=== PATIENT | female | born 1985 | race Caucasian/White ===

== ENCOUNTER 2023-09-25 13:29 | Emergency (ER) | payer BC, SELFPAY ==
[2023-09-25] VITALS (7 sets, daily range): BP systolic 112–130; BP diastolic 78–91; BMI 22.0
[2023-09-25 15:29] LABS: % Basophils 0.3 % (0-2); % Eosinophils 2.9 % (0-6); % Immature Granulocytes 0.2 % (0-0.5); % Lymphocytes 12.1 % (20.5-51.1); % Monocytes 8.4 % (1.7-9.3); % Neutrophils 76.1 % (42.2-75.2); Absolute Eosinophils 0.3 10^3/uL (0-0.7); Absolute Lymphocytes 1.1 10^3/uL (1.2-3.4); Absolute Monocytes 0.8 10^3/uL (0.1-0.6); Absolute Neutrophils 6.8 10^3/uL (1.4-6.5); Hematocrit 29.4 % (37.0-47.0); Hemoglobin 9.3 g/dL (12.0-16.0); Mean Corp Hgb Conc. 31.6 g/dL (33.0-37.0); Mean Corpuscular Hgb 26.8 pg (27.0-31.0); Mean Corpuscular Volume 84.7 fL (81.0-99.0); Mean Platelet Volume 9.7 fL (7.4-10.4); Nucleated Red Blood Cells % 0 %; Platelet Count 337 10^3/uL (130-400); Red Blood Cell Count 3.47 10^6/uL (4.20-5.40); Red Cell Dist. Width 13.5 % (11.5-14.5)
[2023-09-25 15:38] LABS: HCG, Serum Qualitative Screen Negative
[2023-09-25 15:40] LABS: D-Dimer 3.83 ug/mlFEU (0.00-0.50)
[2023-09-25 15:43] LABS: ALT (SGPT) 38 U/L (0-35); AST (SGOT) 34 U/L (14-36); Albumin 3.2 g/dl (3.5-5.0); Blood Urea Nitrogen 12 mg/dl (7-17); Calcium 8.9 mg/dl (8.4-10.2); Carbon Dioxide 26 mmol/L (22-30); Chloride 103 mmol/L (98-107); Estimated Creatinine Clearance 113 ml/min; Glucose 96 mg/dl (70-99); Potassium 4.1 mmol/L (3.5-5.1); Sodium 137 mmol/L (135-145); Total Bilirubin 0.3 mg/dl (0.2-1.3); Total Protein 6.2 g/dl (6.3-8.2); eGFR > 60.00
[2023-09-25 15:52] LABS: Troponin I < 0.012 ng/ml
[2023-09-25 15:57] LABS: Urine Albumin Negative (Neg - Trace); Urine Bilirubin Negative (Negative); Urine Character Clear (Clear); Urine Color Straw; Urine Glucose Negative (Negative); Urine Ketone Negative (Negative); Urine Leukocyte Negative (Negative); Urine Nitrite Negative (Negative); Urine Occult Blood Negative (Negative); Urine Specific Gravity 1.005 (<1.030); Urine Urobilinogen Negative (Neg - 1+)
[2023-09-25 16:01] LABS: Alkaline Phosphatase 168 U/L (38-126)
[2023-09-25 16:06] LABS: Erythrocyte Sed Rate 73 mm/hour (0-20)
--- NOTE | 2023-09-25 18:51 | ED.GENMED ---
History of Present Illness
<Caren Michel NP - Last Filed: 09/25/23 19:25>
General
Chief Complaint: Fever
Source: patient
Exam Limitations: none
Time Seen by Provider: 09/25/23 14:42
Nursing documentation reviewed up to this point in time: agreed with
Travel History
Have you had any contact with someone who has COVID-19?: No
Do you have any symptoms of coronavirus? Fever > 100 degrees, chills, cough, shortness of breath, sore throat, loss of taste or smell, muscle aches, or headache?: No
History of Present Illness
History of Present Illness:
Patient to ED with complaint of low grade fevers, chest pain, cough. Symptoms started approx 5 weeks ago but she states the past 2 weeks her symptoms have escalated. States she was seen by her PCP, had outpatient labs that were all normal.
Brought self to ED today because of her continued symptoms. Reports she had COVID in April. Given rx for Naproxen, flexeril, albuterol inhaler without improvement.
Past History
<Caren Michel NP - Last Filed: 09/25/23 19:25>
Past History
ED Past Medical History: Other (migraines )
ED Past Surgical History: and Gynecological
Social History
Tobacco: Non-smoker
Alcohol: Occasional
Drug: None
Living: with family
Review of Systems
<Caren Michel NP - Last Filed: 09/25/23 19:25>
Review of Systems
Allergies reviewed?: Yes
All Other Systems: ROS reviewed and negative except as documented in HPI and ROS
Constitutional: Reports fatigue
EENT: Reports no symptoms
Respiratory: Reports cough
Cardiac: Reports chest pain
ABD/GI: Reports no symptoms
: Reports no symptoms
Musculoskeletal: Reports no symptoms
Skin: Reports no symptoms
Neurological: Reports no symptoms
Endocrine: Reports no symptoms
Psychiatric: Reports no symptoms
Phy Exam
<Caren Michel PRODUCTION ARTIST - Last Filed: 09/25/23 19:25>
General Physical Exam
General Presentation: well appearing and no apparent distress
General age: appears stated age
General Skin: warm and dry
General Habitus: normal
General Mental: alert
General Hydration: appears well hydrated
Cardiovascular Exam
Cardiovascular Exam: regular rate/rhythm and no edema
Pulmonary Exam
Pulmonary Exam: lungs clear, no respiratory distress and chest non tender
Gastrointestinal Exam
Gastrointestinal Exam: normal bowel sounds, non tender, soft and no organomegaly
Musculoskeletal Exam
Musculoskeletal Exam: full ROM and neuro vasc intact
Skin Exam
Skin Exam: normal color, warm/dry and no rash
Psychiatric Exam
Psychiatric Exam: normal mood/affect
Course
<Caren Michel PRODUCTION ARTIST - Last Filed: 09/25/23 19:25>
Orders/Labs/Results
Orders:
Orders
09/25/23 13:37
EKG [Electrocardiogram (*1)] Urgent
Reason for Study: Chest Pain
09/25/23 13:38
EKG- Treatment ONCE
09/25/23 14:52
Test Result ONCE
09/25/23 14:54
CR Chest - 2 Views Urgent
Comment:
Reason For Exam: pain, cough
09/25/23 15:04
C-Reactive Protein Urgent
Comment: ADD ON
Complete Blood Count/With Diff Urgent
Comprehensive Metabolic Panel Urgent
D-Dimer Urgent
Erythrocyte Sed Rate Urgent
Comment: ADD ON
HCG, Serum Qualitative Screen Urgent
Troponin I Urgent
Blood Culture Q30M
ROLDAN Source: Blood/Venous
Specimen Description:
Blood Culture Q30M
ROLDAN Source: Blood/Venous
Specimen Description:
09/25/23 15:41
Add On- LAB Urgent
Tests Added?: Sed rate, CRP
09/25/23 15:45
Urinalysis Reflex To Culture Urgent
Date Specimen was Collected: 09/25/23
Time Specimen was Collected: 15:36
09/25/23 15:46
CT Chest Pe Study Urgent
Comment:
Reason For Exam: CP, elevated Ddimer
Abnormal Lab Results
09/25/23
15:04
RBC 3.47 L 10^6/uL
(4.20-5.40)
Hgb 9.3 L g/dL
(12.0-16.0)
Hct 29.4 L %
(37.0-47.0)
MCH 26.8 L pg
(27.0-31.0)
MCHC 31.6 L g/dL
(33.0-37.0)
Absolute Neuts (auto) 6.8 H 10^3/uL
(1.4-6.5)
Absolute Lymphs (auto) 1.1 L 10^3/uL
(1.2-3.4)
Absolute Monos (auto) 0.8 H 10^3/uL
(0.1-0.6)
Neutrophils % 76.1 H %
(42.2-75.2)
Lymphocytes % 12.1 L %
(20.5-51.1)
ESR 73 H mm/hour
(0-20)
D-Dimer 3.83 H ug/mlFEU
(0.00-0.50)
ALT 38 H U/L
(0-35)
Alkaline Phosphatase 168 H U/L
(38-126)
C-Reactive Protein 65.30 H mg/L
(0.0-10.00)
Total Protein 6.2 L g/dl
(6.3-8.2)
Albumin 3.2 L g/dl
(3.5-5.0)
09/25/23 15:04
09/25/23 15:04
Vital Signs
Initial and Last Documented VS:
Initial Vital Signs
Temp Pulse Resp BP Pulse Ox
98.1 F 109 18 126/87 98
09/25/23 13:35 09/25/23 13:35 09/25/23 13:35 09/25/23 13:35 09/25/23 13:35
Last Documented Vital Signs
Temp Pulse Resp BP Pulse Ox
99.7 F 91 18 112/82 98
09/25/23 13:38 09/25/23 17:34 09/25/23 17:34 09/25/23 17:34 09/25/23 17:34
<Arden Ramirez, DO - Last Filed: 09/25/23 19:06>
Orders/Labs/Results
Orders:
Orders
09/25/23 13:37
EKG [Electrocardiogram (*1)] Urgent
Reason for Study: Chest Pain
09/25/23 13:38
EKG- Treatment ONCE
09/25/23 14:52
Test Result ONCE
09/25/23 14:54
CR Chest - 2 Views Urgent
Comment:
Reason For Exam: pain, cough
09/25/23 15:04
C-Reactive Protein Urgent
Comment: ADD ON
Complete Blood Count/With Diff Urgent
Comprehensive Metabolic Panel Urgent
D-Dimer Urgent
Erythrocyte Sed Rate Urgent
Comment: ADD ON
HCG, Serum Qualitative Screen Urgent
Troponin I Urgent
Blood Culture Q30M
ROLDAN Source: Blood/Venous
Specimen Description:
Blood Culture Q30M
ROLDAN Source: Blood/Venous
Specimen Description:
09/25/23 15:41
Add On- LAB Urgent
Tests Added?: Sed rate, CRP
09/25/23 15:45
Urinalysis Reflex To Culture Urgent
Date Specimen was Collected: 09/25/23
Time Specimen was Collected: 15:36
09/25/23 15:46
CT Chest Pe Study Urgent
Comment:
Reason For Exam: CP, elevated Ddimer
Abnormal Lab Results
09/25/23
15:04
RBC 3.47 L 10^6/uL
(4.20-5.40)
Hgb 9.3 L g/dL
(12.0-16.0)
Hct 29.4 L %
(37.0-47.0)
MCH 26.8 L pg
(27.0-31.0)
MCHC 31.6 L g/dL
(33.0-37.0)
Absolute Neuts (auto) 6.8 H 10^3/uL
(1.4-6.5)
Absolute Lymphs (auto) 1.1 L 10^3/uL
(1.2-3.4)
Absolute Monos (auto) 0.8 H 10^3/uL
(0.1-0.6)
Neutrophils % 76.1 H %
(42.2-75.2)
Lymphocytes % 12.1 L %
(20.5-51.1)
ESR 73 H mm/hour
(0-20)
D-Dimer 3.83 H ug/mlFEU
(0.00-0.50)
ALT 38 H U/L
(0-35)
Alkaline Phosphatase 168 H U/L
(38-126)
C-Reactive Protein 65.30 H mg/L
(0.0-10.00)
Total Protein 6.2 L g/dl
(6.3-8.2)
Albumin 3.2 L g/dl
(3.5-5.0)
09/25/23 15:04
09/25/23 15:04
Vital Signs
Initial and Last Documented VS:
Initial Vital Signs
Temp Pulse Resp BP Pulse Ox
98.1 F 109 18 126/87 98
09/25/23 13:35 09/25/23 13:35 09/25/23 13:35 09/25/23 13:35 09/25/23 13:35
Last Documented Vital Signs
Temp Pulse Resp BP Pulse Ox
99.7 F 91 18 112/82 98
09/25/23 13:38 09/25/23 17:34 09/25/23 17:34 09/25/23 17:34 09/25/23 17:34
<Caren Michel NP - Last Filed: 09/25/23 19:25>
*Radiology
Radiology exam reviewed: radiology read reviewed
*Pulse Oximetry
Patient hypoxic: no
<Caren Michel NP - Last Filed: 09/25/23 19:25>
Update Note
Update Note:
CT report: Large soft tissue massin anterior mediastinum, large pericardial effusion, small bilateral pleural effusion. Discussed case with Dr. Shea (CT surgery). Recommends transfer to [place]. Discussed CT findings and recommendations of Dr. Shea
with patient and she is agreeable to transfer.
Case discussed with Ct Dr Scott at [facility] who will accept transfer. Patient to be transferred to CT-ICU at [place]. She is agreeable to transfer.
ED Attending Note
<Caren Michel PRODUCTION ARTIST - Last Filed: 09/25/23 19:25>
-
Portions of this chart may have been created with voice recognition software.� Occasional wrong word or��sound alike� substitutions may have occurred due to the inherent limitations of voice recognition software.
<Arden Ramirez, DO - Last Filed: 09/25/23 19:06>
ED Attending Note
Patient seen and examined by attending physician: Yes
ED Attending Note:
I have reviewed and agree with patient treatment plan by Caren Michel. My exam revealed 38-year-old female no acute distress. Patient with anterior mediastinal mass, concerning for thymoma versus teratoma. Patient also with pericardial
effusion. Discussed with cardiothoracic surgery, who recommends transfer to [place].
Discharge Plan
Departure
Patient Disposition: Acute Care Hospital
Date of Disposition: 09/25/23
Time of Disposition: 19:23
Discharge Problem:
Mass of mediastinum, Acute pericardial effusion
Prescriptions:
No Action
Vitamin Tablet
1 tab PO DAILY
oxycodone-acetaminophen 5 MG/325 MG tablet
1 tab PO Q4HPRN PRN (Reason: moderate pain) Qty: 10 0RF
ibuprofen 600 MG tablet
600 mg PO Q4HPRN PRN (Reason: cramps) Qty: 90 0RF
Referrals:
Kristyn Serrano CRNP [Family Provider] -
Hospital Transfer
Other hospital: [facility]
I certify that the patient requires transfer: Yes
Discussed case with accepting physician: Dr. Scott
Reason for transfer: higher level of care
Interventions
Interventions:
*Risk Screen - Suicide Last Done: 09/25/23 13:35
*General Assessment Last Done: 09/25/23 14:56
*Neglect/Abuse Screening Last Done: 09/25/23 13:35
*ED COVID-19 Vaccine History Last Done: 09/25/23 13:35
ED- Neurological Assessment Last Done: 09/25/23 17:34
ED-Skin Assessment Last Done: 09/25/23 17:34
Discharge Date and Time
Print Language: INDONESIAN
[2023-09-25] MEDS: TYLENOL 1000 MG PO (19:19)
[2023-09-25] MEDS: NSS 1000 IV (19:28)
--- NOTE | 2023-09-25 22:00 | EDRN ---
Report received introduced myself to patient, updated her on departure time, provided with cup of ice and turned down lights for comfort
--- NOTE | 2023-09-26 | EDRN ---
Patient ambulated to the bathroom before ambulance got here for transport, called [facility] to let them know squad was here and leaving shortly.
== END 2023-09-26 00:41 | disposition short-term general hospital (02) ==
LOC: EMR 13:29
PROVIDERS: Nurse Practitioner; EMERGENCY PHYSICIAN Emergency Medicine; FAMILY PHYSICIAN Nurse Practitioner Family
DX: J90 Pleural effusion, not elsewhere classified (principal); R22.2 Localized swelling, mass and lump, trunk; G43.909 Migraine, unspecified, not intractable, without status migrainosus; Z86.16 Personal history of COVID-19
CPT/HCPCS: 99285; 71046; 71275; 80053; 81003; 84484; 84703; 85025; 85379; 85652; 86140; 87040; 93005; Q9967

== ENCOUNTER 2023-10-11 06:30 | Inpatient (IN) | payer BC, SELFPAY ==
[2023-10-11] VITALS (7 sets, daily range): BP systolic 111–135; BP diastolic 74–89; BMI 22.7
--- NOTE | 2023-10-11 04:12 | ED.GENMED ---
History of Present Illness
General
Chief Complaint: Breathing Problem
Source: patient
Exam Limitations: none
Time Seen by Provider: 10/11/23 04:10
Nursing documentation reviewed up to this point in time: agreed with
History of Present Illness
History of Present Illness:
Pleasant 38-year-old female that presents with shortness of breath. She has been diagnosed with non-Hodgkin's lymphoma, and has been undergoing treatment at [facility]. She has a thymic mass in her chest which was diagnosed here
via CAT scan. Patient states that she woke up tonight with shortness of breath and difficulty breathing. She states that her chest felt tight. She is concerned for pericardial effusion or blood clot. Patient denies fever, chills, nausea or
vomiting.
Past History
Past History
ED Past Medical History: Other (migraines )
ED Past Surgical History: and Gynecological
Social History
Tobacco: Non-smoker
Alcohol: Occasional
Drug: None
Living: with family
Phy Exam
General Physical Exam
General Presentation: well appearing and no apparent distress
General Skin: warm and dry
General Habitus: normal
General Mental: alert
General Hydration: appears well hydrated
ENT Exam
ENT Exam: EOMI, pharynx normal, neck supple and normocephalic
Eye Exam
Eye Exam: PERRL, cornea clear and conjunctiva normal
Cardiovascular Exam
Cardiovascular Exam: regular rate/rhythm, no edema, no murmur, normal peripheral pulses and tachycardia
Pulmonary Exam
Pulmonary Exam: lungs clear, no rales, no crackles, no rhonchi, no stridor, no wheezing and no cough
Gastrointestinal Exam
Gastrointestinal Exam: normal bowel sounds, non tender, soft, no organomegaly, no pulsatile mass and non distended
Neurological Exam
Neurological Exam: alert, oriented x3, no motor deficits and speech normal
Musculoskeletal Exam
Musculoskeletal Exam: full ROM and no edema
Skin Exam
Skin Exam: normal color, warm/dry, no rash and no petechia
Psychiatric Exam
Psychiatric Exam: normal mood/affect
Course
Orders/Labs/Results
Orders:
Orders
10/11/23 04:11
Electrocardiogram (*1) Stat
Reason for Study: Other
Other Reason for Exam: chest pain
Cardiac Monitoring- Treatment ONCE
EKG- Treatment ONCE
10/11/23 04:22
Complete Blood Count/With Diff Urgent
Comprehensive Metabolic Panel Urgent
D-Dimer Urgent
HCG, Serum Qualitative Screen Urgent
Comment: ADDED
Magnesium Urgent
Manual Differential Urgent
NT-proBNP Urgent
PTT Urgent
Prothrombin Time Urgent
TSH Urgent
Troponin I Urgent
10/11/23 05:17
Add On- LAB Urgent
Tests Added?: serum hcg qual
10/11/23 05:31
CR Chest - 2 Views Urgent
Comment:
Reason For Exam: dyspnea
10/11/23 05:33
Type And Crossmatch Urgent
Abnormal Lab Results
10/11/23
04:22
WBC 14.4 H 10^3/uL
(4.8-10.8)
RBC 3.04 L 10^6/uL
(4.20-5.40)
Hgb 8.1 L g/dL
(12.0-16.0)
Hct 24.4 L %
(37.0-47.0)
MCV 80.3 L fL
(81.0-99.0)
MCH 26.6 L pg
(27.0-31.0)
D-Dimer 2.10 H ug/mlFEU
(0.00-0.50)
Potassium 3.4 L mmol/L
(3.5-5.1)
Creatinine 0.5 L mg/dL
(0.6-1.0)
Glucose 119 H mg/dl
(70-99)
ALT 78 H U/L
(0-35)
Total Protein 5.8 L g/dl
(6.3-8.2)
10/11/23 04:22
10/11/23 04:22
Vital Signs
Initial and Last Documented VS:
Initial Vital Signs
BP
134/85
10/11/23 04:09
Last Documented Vital Signs
Temp Pulse Resp BP Pulse Ox
98.7 F 111 25 134/85 99
10/11/23 04:12 10/11/23 04:15 10/11/23 04:15 10/11/23 04:12 10/11/23 04:30
MDM/Problems Addressed
Differential Diagnosis Includes:
Anemia, pneumonia, pericardial effusion
MDM/Problems Addressed:
38-year-old female with recently diagnosed non-Hodgkin's lymphoma presents with shortness of breath. She had just finished round 1 of chemotherapy. Her next round is due after 18 October to begin. She had a pericardial effusion which was drained.
*Pulse Oximetry
Patient hypoxic: no
*Garbage Collector Interpretation
Rate: tachycardiac
*Critical Care Note
Total Time (30-74mins, 75-104mins- exclusive of procedures): Not Applicable
Comment
Comment:
CT scan deferred at this point. D-dimer improving. Possibility of a VQ scan during admission considered.
Patient Management
Social determinants of health affecting care: Strong social support
Discussion with other providers: Hospitalist
Escalation/DeEscalation of care consider admission/obs:
Patient to be admitted to the hospital. CT scan deferred at this point. Patient will likely need an echocardiogram. Possibly further imaging in the near future. Blood consent signed. Blood products deferred at this point. Patient to be
admitted to the hospitalist service.
Update Note
Update Note:
Patient is anemic. Hemoglobin is 8.1. She states that it was 8.8 on Monday at [facility]. She denies any obvious blood loss. Blood count is dropped from 9.62 weeks ago.
D-dimer is decreased from previous.
EKG shows sinus tachycardia rate of 105 with normal intervals, normal axis. No evidence of acute ischemia present. Diagnosis consistent with sinus tachycardia. Will compare to previous EKG dated September 25, 2023, similar morphology noted.
ED Attending Note
-
Portions of this chart may have been created with voice recognition software.� Occasional wrong word or��sound alike� substitutions may have occurred due to the inherent limitations of voice recognition software.
Discharge Plan
Departure
Prescriptions:
No Action
Vitamin Tablet
1 tab PO DAILY
oxycodone-acetaminophen 5 MG/325 MG tablet
1 tab PO Q4HPRN PRN (Reason: moderate pain) Qty: 10 0RF
ibuprofen 600 MG tablet
600 mg PO Q4HPRN PRN (Reason: cramps) Qty: 90 0RF
Referrals:
Kristyn Serrano CRNP [Family Provider] -
Interventions
Interventions:
*Risk Screen - Suicide Last Done: 10/11/23 04:12
*General Assessment Last Done: 10/11/23 04:12
*Neglect/Abuse Screening Last Done: 10/11/23 04:12
ED- Fall Risk Assessment Last Done: 10/11/23 04:30
*ED COVID-19 Vaccine History Last Done: 10/11/23 04:28
ED- Cardiac Assessment Last Done: 10/11/23 04:30
ED- Pulmonary Assessment Last Done: 10/11/23 04:30
Discharge Date and Time
Print Language: MALTESE
[2023-10-11 04:31] LABS: Hematocrit 24.4 % (37.0-47.0); Hemoglobin 8.1 g/dL (12.0-16.0); Mean Corp Hgb Conc. 33.2 g/dL (33.0-37.0); Mean Corpuscular Hgb 26.6 pg (27.0-31.0); Mean Corpuscular Volume 80.3 fL (81.0-99.0); Mean Platelet Volume 9.7 fL (7.4-10.4); Nucleated Red Blood Cells % 0 %; Platelet Count 264 10^3/uL (130-400); Red Blood Cell Count 3.04 10^6/uL (4.20-5.40); Red Cell Dist. Width 14.2 % (11.5-14.5); White Blood Cell Count 14.4 10^3/uL (4.8-10.8)
[2023-10-11 04:47] LABS: ALT (SGPT) 78 U/L (0-35); AST (SGOT) 29 U/L (14-36); Albumin 3.5 g/dl (3.5-5.0); Alkaline Phosphatase 86 U/L (38-126); Blood Urea Nitrogen 15 mg/dl (7-17); Calcium 8.9 mg/dl (8.4-10.2); Carbon Dioxide 27 mmol/L (22-30); Chloride 101 mmol/L (98-107); Estimated Creatinine Clearance 118 ml/min; Glucose 119 mg/dl (70-99); Magnesium 2.1 mg/dl (1.6-2.3); Potassium 3.4 mmol/L (3.5-5.1); Sodium 137 mmol/L (135-145); Total Bilirubin 0.5 mg/dl (0.2-1.3); Total Protein 5.8 g/dl (6.3-8.2); eGFR > 60.00
[2023-10-11 04:58] LABS: NT-proBNP 336 pg/ml; Troponin I < 0.012 ng/ml
[2023-10-11 05:10] LABS: INR 1.04; PT 13.4 Sec (11.4-14.6)
[2023-10-11 05:11] LABS: APTT 27.9 Sec (23.4-35.0)
[2023-10-11 05:42] LABS: HCG, Serum Qualitative Screen Negative
--- NOTE | 2023-10-11 05:54 | HPS.HSE ---
Addendum entered and electronically signed by Sai Davis MD 10/11/23 13:42:
[facility] PE study:
small eccentric pulmonary embolism in the segmental and subsegmental branches of the posterior segment of the right lower lobe. There is probably a second small embolus in the lateral segmental and subsegmental branches of the right lower lobe.
Large anterior mediastinal mass which appears slightly smaller than on examination of September 25, 2023, which would be suggestive of interval treatment. On review of [facility], the patient did receive first round of chemotherapy last week.
Interval resolution of right pleural effusion. Small left pleural effusion which appears unchanged.
Significant interval improvement in pericardial effusion. In [facility], reported history of pericardiocentesis. Small remaining anterior pericardial effusion is present.
Addendum entered and electronically signed by Sai Davis MD 10/11/23 06:42:
[facility] PE study ordered to complete the work up
Original Note:
Family Physician
-
Family Physician: Kristyn Serrano
Chief Complaint
-
sob, tightness of chest
History of Present Illness
HPI
38 F recently Dxed non-Hodgkin's lymphoma, had Tx at [facility] following findings of Large soft tissue mass in the anterior mediastinum measuring up to 10.6 cm with centrally cystic/necrotic components per CTC on 09/25/23 t .
Reports Dxed pericardial effusion at [facility] and s/p pericardiocentesis at [facility]. Completed first round of chemo last week. Second round on 10/22/23.
She was [facility] to ER at this hour for acute rsp distress with dyspnea. Denied cough , fever and chills.
Describe tightness of the chest and concern with recurrent pericardial effusion.
At ER:
Tachycardic, normotensive
tachypneic , POx 99 %
Elevated D Dimer but lower than before
NEG TPNI
Unremarkable BNP
Pending CXR
Medical History
Past Medical History
Past Medical History: Reports CAD (non-Hodgkin's lymphoma, recently had Tx at [facility]) and Other (pericardial effusion at [facility] and s/p pericadiocentis at [facility] )
Additional Past Medical History:
Migraines
Past Surgical History: Reports None and Gynocological
Social History
Tobacco: Non-smoker
Alcohol: Occasional
Living: With Family
Family History
Family History: Not pertinent
Allergies / Home Medications
Allergies reflects when Allergies were last updated in [facility].
Home Medications with original date entered in [facility]
Allergy/Medication List:
Allergies
Allergy/AdvReac Type Severity Reaction Status Date / Time
No Known Allergies Allergy Verified 09/25/23 13:35
Home Medications
Vitamin Tablet 1 tab PO DAILY Supplement 07/21/21
ibuprofen 600 mg tablet 600 mg PO Q4HPRN PRN cramps #90 tabs 07/24/21
oxycodone-acetaminophen 5 mg-325 mg tablet 1 tab PO Q4HPRN PRN moderate pain #10 tabs 07/24/21
Review of Systems
-
Constitutional: Reports No Symptoms
EENT: Reports No Symptoms
Respiratory: Reports See HPI and Trouble Breathing
Cardiac: Reports No Symptoms
Abdomen/GI: Reports No Symptoms
: Reports No Symptoms
Musculoskeletal: Reports No Symptoms
Skin: Reports No Symptoms
Neurological: Reports No Symptoms
Endocrine: Reports No Symptoms
Hematologic/Lymphatic: Reports No Symptoms
Psych: Reports No Symptoms
Physical Exam
Vital Signs
Vital Signs
Temp Pulse Resp BP Pulse Ox
98.7 F 111 25 134/85 99
10/11/23 04:12 10/11/23 04:15 10/11/23 04:15 10/11/23 04:12 10/11/23 04:30
Physical Exam
General: Well Developed, Well Nourished and Respiratory Distress
HEENT: NormoCephalic, Moist mucous membranes and Atraumatic
Respiratory: Clear and Other (tachypnic )
Cardiac: S1/S2 and Regular Rhythm; No Murmur or Rub
GI: Soft, Non Tender, Non Distended and Normal Bowel Sounds; No Organomegaly
Rectal: Deferred by Provider
Genito-urinary: Deferred by me
Musculoskeletal: No Clubbing, No Cyanosis and No Edema
Skin: No Rash
Neuro: AO x 3 and Nonfocal/grossly intact
Laboratory Results
-
10/11/23 04:22
10/11/23 04:22
Laboratory Results
PT 13.4 Sec (11.4-14.6) 10/11/23 04:22
INR 1.04 10/11/23 04:22
APTT 27.9 Sec (23.4-35.0) 10/11/23 04:22
Total Bilirubin 0.5 mg/dl (0.2-1.3) 10/11/23 04:22
AST 29 U/L (14-36) 10/11/23 04:22
ALT 78 U/L (0-35) H 10/11/23 04:22
Alkaline Phosphatase 86 U/L (38-126) 10/11/23 04:22
Troponin I < 0.012 ng/ml 10/11/23 04:22
Data Reviewed
-
Diagnostic Radiology: Discussed with Physician
CT Scan: Discussed with Physician
Medical Tests (Nuc Med, Echo, EKG etc): Report Reviewed by me
Lab Data: Discussed with Physician
Old Records: Reviewed
Impression/Plan
-
Reviewed VS: afebrile ST 110s BP 135/85 RR 25 POx 99
Data
WCC 14.4
Hgb 8,1 - baseline low 9s
nl Platelet
Unremarkable Cr
ALT 78
NEG TPN
proBNP 336
TSH 2.7
D Dimer 2.1 - was 3.8 on 09/25/23
EKG report
SINUS TACHYCARDIA
NONSPECIFIC T WAVE ABNORMALITY
ABNORMAL ECG
WHEN COMPARED WITH ECG OF 25-SEP-2023 13:43,
NO SIGNIFICANT CHANGE WAS FOUND
09/25/23 CT chest PE study
1. No CTA evidence for an acute pulmonary thromboembolism.
2. Large soft tissue mass in the anterior mediastinum measuring up to 10.6 cm with centrally cystic/necrotic components. Primary considerations would include a germ cell or thymic malignancy. Soft tissue sampling is recommended for further
characterization.
3. Large pericardial effusion.
4. Small bilateral pleural effusions.
NO PRIOR hospitalist admission:
ASSESSMENT & PLAN
Pending Rx reconciliation
Acute resp distress with Dyspnea and Gokul
DDX : recurrent pleural effusion, PNA
- NEG TPNI
- Unremarkable BNP
- Pending CXR
- ECHO in AM
- [facility] Cardio consult
Recently Dxed non-Hodgkin's lymphoma, had Tx at [facility] following findings of Large mediastinal mass measuring up to 10.6 cm with centrally cystic/necrotic components per CTC on 09/25/23.
Dxed pericardial effusion at [facility] and s/p pericardiocentesis and range including pericardial biopsy
Completed first round of chemo last week. Second round on 10/22/23 and follow by [facility] Onco
She was DC;[facility] from [facility] on 10[facility]23.
- Onco consult
Worsened anemia of chronic dz due to recent chemo and underlying NHL
- T & S
- Blood consent
- await Onco evaluation
DVT Px: LMWH
Code: Full
IP TLM
[2023-10-11 06:27] LABS: Absolute Neutrophils -Man Diff 13.5 10^3/uL (1.4-6.5); Band Neutrophils 6 % (0-3); Eosinophils 1 % (0-6); Lymphocytes 5 % (20-51); Segmented Neutrophils 88 % (42-75)
[2023-10-11 06:28] LABS: Platelets Checked Yes
[2023-10-11 06:30] LABS: Anisocytosis Slight; Normal RBC Morphology No; Rouleaux 1+
[2023-10-11 06:31] LABS: Total Cells Counted 100
[2023-10-11 10:06] LABS: Reticulocyte Count 0.3 % (0.4-2.8)
--- NOTE | 2023-10-11 10:09 | W.PN.UPDATE ---
Update Note
Progress Note Update
Impression:
Presentation with chest pain and shortness of breath.
Acute pulmonary embolism.
Recent diagnosis of non-Hodgkin's lymphoma
� Mediastinal mass
� Malignant pericardial effusion requiring pericardiocentesis with positive pathology according to patient.
Normocytic anemia
Leukocytosis
Malignant pain likely due to lymphadenopathy.
Plan:
Acute PE.
CT chest:
�There is a small eccentric pulmonary embolism in the segmental and subsegmental branches of the posterior segment of the right lower lobe. There is probably a second small embolus in the lateral segmental and subsegmental branches of the right
lower lobe.
Large anterior mediastinal mass which appears slightly smaller than on examination of September 25, 2023, which would be suggestive of interval treatment. On review of [facility], the patient did receive first round of chemotherapy last week.
Interval resolution of right pleural effusion. Small left pleural effusion which appears unchanged.
Significant interval improvement in pericardial effusion. In [facility], reported history of pericardiocentesis. Small remaining anterior pericardial effusion is present.
PESI 89 class III/intermediate risk
Hemodynamically stable with sinus tachycardia
Follow-up echocardiogram with preserved biventricular function, no evidence of RV strain or pulmonary hypertension.
Check lower extremity Doppler.
Ambulatory pulse ox assessment
Anticoagulation: Lovenox therapeutic weight-based dosing with likely transition to oral NOAC Eliquis versus Xarelto
Pulmonology consultation
Heme-onc consultation
Normocytic anemia
No evidence of acute blood loss.
Suspect related to lymphoma (with anemia prior to chemotherapy initiation).
Iron studies pending
Follow hemoglobin while on anticoagulation
Leukocytosis:? Reactive, last week chemo followed by G-CSF
Non-Hodgkin's lymphoma
Recent diagnosis after findings of mediastinal mass and pericardial effusion.
Status post first round of chemo pending confirmation of regimen.
Continue antibiotic prophylaxis including acyclovir, Bactrim
Pain management Neurontin/oxycodone
[2023-10-11 10:26] LABS: Iron 78 ug/dl (37-170)
[2023-10-11 10:35] LABS: Percent Saturation 26 % (20-50); Total Iron Binding Capacity 290 ug/dl (265-497)
--- NOTE | 2023-10-11 10:56 | PTCARENOTE ---
Patient tearful this am about being admitted to the hospital. Patient OOB with steady gait to bathroom, c/o right chest tenderness and states, 'I can breath better when I am sitting forward.'
--- NOTE | 2023-10-11 10:58 | PTCARENOTE ---
Report called for 4W Will.
[2023-10-11 11:12] LABS: LDH 218 U/L (120-246)
[2023-10-11] MEDS: ZOVIRAX 400 MG PO ×2 (11:14→19:48)
[2023-10-11] MEDS: VISBIOME 1 CAP PO (11:14)
[2023-10-11] MEDS: LOVENOX 60 MG SC ×2 (11:14→22:10)
[2023-10-11] MEDS: DIFLUCAN 400 MG PO (11:15)
[2023-10-11] MEDS: BACTRIM DS 800 MG/160 MG 1 TABLET PO (11:17)
--- NOTE | 2023-10-11 11:51 | W.PN.HOSP.TC ---
Today's Communication/Plan
-
* Monitor on telemetry.
* Enoxaparin 60 mg; transition to apixaban tomorrow.
* Continue pain management.
Assessment / Plan
Assessment / Plan
Assessment
Crystal Sy, age 38, came to the hospital on 10-11-23 with chest pain and shortness of breath. She was diagnosed with diffuse large B-cell lymphoma earlier this month and received her first chemotherapy session at the [facility]
a week ago.
Impression
* Pulmonary embolism
* Diffuse large B-cell lymphoma
* Anemia of chronic disease
* History of pericardial effusion
Plan
Pulmonary embolism
- Elevated d-dimer in the ED (lower than previously); tachycardic ED.
- Troponin, echo, ECG, other blood work unremarkable so far.
- CT chest found 'a small eccentric pulmonary embolism in the segmental and subsegmental branches of the posterior segment of the right lower lobe, and a second small embolus in the lateral segmental and subsegmental branches of the right lower
lobe' on 10-11-23.
- Likely due to underlying malignancy.
- Tachycardic and tachypneic with dyspnea on arrival; tachycardia has persisted.
- Has not required oxygen, and vitals have remained stable otherwise.
- Enoxaparin weight based, at 60 mg SC BID.
- Planned transition to apixaban subsequently.
- Will likely need anticoagulation until remission of lymphoma.
- Pain management as needed.
Diffuse large B-cell lymphoma
- Oncologist: Dr. Onel Tucker at [facility].
- CT chest found 'a large soft tissue mass in the anterior mediastinum measuring up to 10.6 cm with centrally cystic/necrotic components' on 09-25-23, when she came to the ED due to worsening cough and chest pain.
- Received first round of chemotherapy with [facility] last week, followed by Neulasta.
- Second round on 10-22-23.
Anemia of chronic disease
- Secondary to B-cell DLCL most likely.
- 8.1 on 10-11-23.
- T&S and consent in the chart.
- Transfuse for <7.
- Follow CBC.
History of pericardial effusion
- S/p pericardiocentesis.
DVT prophylaxis
- Enoxaparin SC.
Code status
- Full.
Anticipated Discharge: 24 - 48 hours
Subjective/Interval History
-
Date of Service: October 11, 2023
Objective Data
-
Labs:
Laboratory Results
10/11/23
04:22
WBC 14.4 H
Hgb 8.1 L
Hct 24.4 L
Plt Count 264
PT 13.4
INR 1.04
APTT 27.9
Sodium 137
Potassium 3.4 L
Chloride 101
Carbon Dioxide 27
BUN 15
Creatinine 0.5 L
Glucose 119 H
Calcium 8.9
Total Bilirubin 0.5
AST 29
ALT 78 H
Alkaline Phosphatase 86
Vital Signs:
Vital Signs
Temp Pulse Resp BP Pulse Ox
98.6 F 104 18 123/84 98
10/11/23 08:12 10/11/23 08:12 10/11/23 08:12 10/11/23 08:12 10/11/23 08:12
Review of Systems
-
History Source: Patient
Constitutional: Reports Fatigue
EENT: Reports No Symptoms Reported
Respiratory: Reports Trouble Breathing
Cardiac: Reports Chest Pain
Abdomen/GI: Reports No Symptoms
Breast: Reports No Symptoms
Genitourinary: Reports No Symptoms
Musculoskeletal: Reports No Symptoms
Skin: Reports No Symptoms
Neuro: Reports No Symptoms
Endocrine: Reports No Symptoms
Hematologic / Lymphatic: Reports No Symptoms
Allergy / Immunology: Reports No Symptoms
Physical Exam
-
General: No Apparent Distress and Comfortable
HEENT: Normocephalic, Atraumatic, Moist Mucous Membranes and Anicteric
Respiratory: Clear to Auscultation and Non Labored Respirations
Cardiac: Regular Rhythm and S1/S2
GI: Soft, Nontender, Nondistended and No Hepatosplenomegaly
Genito-urinary: No Costovertebral Tender
Musculoskeletal: No Clubbing, No Cyanosis and No Edema
Skin: Warm, Dry and IV Access / Catheter Site
Neuro: Awake, Alert, Oriented and Nonfocal/Grossly Intact
Psych: Calm
--- NOTE | 2023-10-11 13:07 | CON.PUL ---
Consultation
Consultation Request
Date/Time Consultation Requested: 10/11/2023
Date/Time Consultation Performed: 10/11/2023
Requesting Provider: Dr. Chappell
Performing Provider: Dr. Fer Hill
Reason for Consultation: Acute pulmonary embolism
Medical History
-
History of Present Illness:
38-year-old woman recently diagnosed with non-Hodgkin lymphoma, had therapy at [facility]. Has a anterior mediastinum large tissue mass 10.6 cm with central necrosis on CAT scan 09/25/2023.
She is status post pericardiocentesis at [facility].
Completed first round of chemotherapy and she is scheduled for second round on 10/22/2023.
Patient was admitted to [facility] emergency room due to respiratory distress and that happened acutely. No reports of cough, wheezing, hemoptysis or phlegm production.
Chest pain was retrosternal.
Underwent CT of the chest 09/21/2023 that demonstrated a small eccentric pulmonary embolism in the subsegmental and subsegmental branches on the right lower lobe. Second small pulmonary embolus on the right lower lobe.
Large anterior mediastinal mass which appears slightly smaller compared to prior imaging. Interval resolution of right pleural effusion. A small left pleural effusion. Significant interval improvement pericardial effusion. We were consulted for
evaluation of pulmonary embolism.
Patient states that the right-sided sharp pain has subsided but is still present.
Comfortable at rest.
Denies any other new complaints.
Past Medical History
Past Medical History: Other (See assessment and plan findings)
Social History
Tobacco: Non-smoker
Alcohol: Occasional
Drug: None
Family History
Family History: Reviewed & Not Pertinent
Allergies / Home Medications
Allergies
Allergy/AdvReac Type Severity Reaction Status Date / Time
No Known Allergies Allergy Verified 09/25/23 13:35
Home Medications
�Medication �Instructions �Recorded �Confirmed �Last Taken �Type
Lactobac no.2-Bifidobac no.1-S. 1 cap PO DAILY Gastrointestinal 10/11/23 10/11/23 Unknown History
thermo 112.5 billion cell capsule Issue
(Visbiome)
acyclovir 400 mg tablet 400 mg PO BID prophylaxis 10/11/23 10/11/23 Unknown History
fluconazole 200 mg tablet 400 mg PO DAILY prophylaxis 10/11/23 10/11/23 Unknown History
gabapentin 300 mg capsule 300 mg PO TID Pain 10/11/23 10/11/23 10/11/23 History
levofloxacin 500 mg tablet 500 mg PO DAILY Infection 10/11/23 10/11/23 Unknown History
loratadine 10 mg tablet (Claritin) 10 mg PO DAILYPRN PRN the day of 10/11/23 10/11/23 Unknown History
and 3 day after injection
ondansetron HCl 8 mg tablet 8 mg PO [id number] PRN nausea 10/11/23 10/11/23 Unknown History
oxycodone 5 mg tablet 5 mg PO TIDPRN PRN severe pains 10/11/23 10/11/23 Unknown History
rizatriptan 10 mg disintegrating 0 mg PO .COMPLEX headache 10/11/23 10/11/23 Unknown History
tablet
sulfamethoxazole 800 1 tab PO MOWEFR prophylaxis 10/11/23 10/11/23 10/09/23 History
mg-trimethoprim 160 mg tablet
(Bactrim DS)
therapeutic multivitamin 1 tab PO DAILY Supplement 10/11/23 10/11/23 Unknown History
Review of Systems
-
History Source: Patient
All other systems: Negative unless noted
Vitals / Labs / Diagnostic Testing
Vital Signs
Temp Pulse Resp BP Pulse Ox
99.4 F 103 18 122/78 100
10/11/23 12:40 10/11/23 12:40 10/11/23 12:40 10/11/23 12:40 10/11/23 12:40
Lab Data
10/11/23 04:22
10/11/23 04:22
Laboratory Results
10/11/23
04:22
PT 13.4
INR 1.04
APTT 27.9
Diagnostic Testing:
Physical Exam
-
HEENT: Normocephalic
Cardiovascular: S1/S2
Respiratory: Clear
GI: Non Distended
Neurology: Awake, Alert, AO x 3 and No Motor Deficits
Skin: Warm
General: Respiratory Distress (n)
Assessment
-
Acute respiratory distress/right sided sharp chest discomfort on admission.
Acute subsegmental small burden pulmonary embolism
Lower extremity Dopplers 10/11/2023: No evidence for deep venous thrombosis
Echocardiogram 10/11/2023: Reviewed report, normal LVEF. Normal right ventricular size and function. Pulmonary pressure 30 mmHg. Normal RV function. Trivial pericardial effusion
Condition present on admission:
Anterior mediastinal [id number] lymphoma status for chemotherapy recently. [facility]
She was discharged from [facility] on 10/07/2023.
Pericardial [id number]-[id number]-[id number] post pericardiocentesis at [facility]. Anemia of chronic disease
Assessment and plan:
From the pulmonary perspective, patient not on oxygen supplementation.
Hemodynamically stable.
Mildly tachycardic.
No evidence for pulmonary infiltrates
Low burden right lower lobe filling defect consistent with possible small pulmonary embolism. Normal RV function on echocardiogram.
I agree with Lovenox therapeutic dose.
Oncology has been consulted, I will defer anticoagulation to hematology oncology. She will get a follow-up at [facility].
Likely will need anticoagulation until remission of lymphoma.
Continue with pain control.
No need for ongoing pulmonary follow-up.
Continue with telemetry monitoring while in the hospital.
Will follow-up peripherally on as-needed basis if there is any decompensation.

Imaging reviewed:
EKG report
SINUS TACHYCARDIA
NONSPECIFIC T WAVE ABNORMALITY
ABNORMAL ECG
WHEN COMPARED WITH ECG OF 25-SEP-2023 13:43,
NO SIGNIFICANT CHANGE WAS FOUND
CTChest 10/11/2023: Reviewed,
Showed subsegmental small burden pulmonary embolism right lower lobe. Peripheral located.
Improved pericardial effusion
Nearly resolved ledt pleural effusion
Large anterior mediastinal mass increase in size compared to September [address] per
09/25/23 CT chest PE study
1. No CTA evidence for an acute pulmonary thromboembolism.
2. Large soft tissue mass in the anterior mediastinum measuring up to 10.6 cm with centrally cystic/necrotic components. Primary considerations would include a germ cell or thymic malignancy. Soft tissue sampling is recommended for further
characterization.
3. Large pericardial effusion.
4. Small bilateral pleural effusions.
[2023-10-11] MEDS: CLARITIN 10 MG PO (13:08)
[2023-10-11] MEDS: TYLENOL 650 MG PO ×2 (13:10→22:28)
--- NOTE | 2023-10-11 14:02 | CON.ONC ---
Impression
Impression
Chest pain
PE
DLCL
Plan
Plan
Chest pain could be related to PE, Neulasta, or mediastinal mass responding to Tx.
The timing seems compatible with Neulasta related. She was taking prophylactic Claritin.
Now with PE documented, started on Lovenox 60 SQ Q12. Okay to transition to Eliquis.
WBC and PLT adequate. Anemia likely chemo related but monitor.
F/u Dr. natasha Chiang
Patient History
History of Present Illness
CC: Chest Pain
HPI: 38-year-old woman recently diagnosed with B-cell DLCL Oncologist Dr. Onel Tucker at [facility] [place] semi urgently there with inpatient R-EPOCH pending prognostic FISH testing. Has a anterior mediastinum large tissue mass 10.6 cm with central necrosis
on CAT scan 09/25/2023. Completed first round of chemotherapy followed by Neulasta 10/08 and she is scheduled for second round on 10/22/2023.
Presented to ER 2 am with chest pain (pleuritic and somewhat right sided radiating to her breast) with respiratory distress. Chest pain was retrosternal.
Underwent CT of the chest 09/21/2023 that demonstrated a small eccentric pulmonary embolism in the subsegmental and subsegmental branches on the right lower lobe. Second small pulmonary embolus on the right lower lobe.
Large anterior mediastinal mass which appears slightly smaller compared to prior imaging. Interval resolution of right pleural effusion. A small left pleural effusion. Significant interval improvement pericardial effusion.
Past-Medical/Surgical History
PMH: DLCL
PSH: none
Social History
Tobacco: Non-smoker
Alcohol: Occasional
Drug: None
Family History
Family History: Reviewed & Not Pertinent
Patient Medication
�Medication �Instructions �Recorded �Confirmed �Last Taken �Type
Lactobac no.2-Bifidobac no.1-S. 1 cap PO DAILY Gastrointestinal 10/11/23 10/11/23 Unknown History
thermo 112.5 billion cell capsule Issue
(Visbiome)
acyclovir 400 mg tablet 400 mg PO BID prophylaxis 10/11/23 10/11/23 Unknown History
fluconazole 200 mg tablet 400 mg PO DAILY prophylaxis 10/11/23 10/11/23 Unknown History
gabapentin 300 mg capsule 300 mg PO TID Pain 10/11/23 10/11/23 10/11/23 History
levofloxacin 500 mg tablet 500 mg PO DAILY Infection 10/11/23 10/11/23 Unknown History
loratadine 10 mg tablet (Claritin) 10 mg PO DAILYPRN PRN the day of 10/11/23 10/11/23 Unknown History
and 3 day after injection
ondansetron HCl 8 mg tablet 8 mg PO [id number] PRN nausea 10/11/23 10/11/23 Unknown History
oxycodone 5 mg tablet 5 mg PO TIDPRN PRN severe pains 10/11/23 10/11/23 Unknown History
rizatriptan 10 mg disintegrating 0 mg PO .COMPLEX headache 10/11/23 10/11/23 Unknown History
tablet
sulfamethoxazole 800 1 tab PO MOWEFR prophylaxis 10/11/23 10/11/23 10/09/23 History
mg-trimethoprim 160 mg tablet
(Bactrim DS)
therapeutic multivitamin 1 tab PO DAILY Supplement 10/11/23 10/11/23 Unknown History
Active Medications
Generic Name Dose Route Start Last Admin
Trade Name Freq PRN Reason Stop Dose Admin
Acetaminophen 650 mg 10/11/23 06:57 10/11/23 13:10
Acetaminophen 325 Mg Tablet PO 11/08/23 06:56 650 mg
Q4HPRN PRN Administration
mild pain/CRUZ/temp> 100.4F
Acyclovir Sodium 400 mg 10/11/23 11:00 10/11/23 11:14
Acyclovir Sodium 200 Mg Capsule PO 10/21/23 10:59 400 mg
BID PATRICK Administration
Bisacodyl 10 mg 10/11/23 06:57
Bisacodyl 10 Mg Rectal Suppository RECTAL 11/08/23 06:56
[id number] PRN
constipation
Enoxaparin Sodium 60 mg 10/11/23 10:00 10/11/23 11:14
Enoxaparin Sodium 60 Mg/0.6 Ml Syringe SC 11/08/23 09:59 60 mg
Q12H PATRICK Administration
Fluconazole 400 mg 10/11/23 11:00 10/11/23 11:15
Fluconazole 200 Mg Tablet PO 10/21/23 10:59 400 mg
DAILY PATRICK Administration
Gabapentin 300 mg 10/11/23 16:00
Gabapentin 300 Mg Capsule PO 11/08/23 15:59
TID PATRICK
Lactobacillus/Bifidobacterium 1 cap 10/11/23 10:30 10/11/23 11:14
Lactobac/Bifidobac (Visbiome) PO 11/08/23 10:29 1 cap
DAILY PATRICK Administration
Multivitamins Therapeutic 1 tablet 10/12/23 08:00
Multivitamin Tablet PO 11/09/23 07:59
DAILY PATRICK
Ondansetron HCl 8 mg 10/11/23 10:40
Ondansetron 4 Mg Tablet PO 11/08/23 10:39
[id number] PRN
NAUSEA/VOMITING
Oxycodone HCl 5 mg 10/11/23 10:26
Oxycodone 5 Mg Regular Release Tablet PO 10/25/23 10:25
TIDPRN PRN
severe pain
Polyethylene Glycol 17 grams 10/11/23 06:57
Polyethylene Glycol Powder 17 Grams Packet PO 11/08/23 06:56
DAILYPRN PRN
constipation
Rizatriptan Benzoate 10 mg 10/11/23 10:30
Rizatriptan 10 Mg (Orally Disintegrating) Tablet PO 11/08/23 10:29
DAILYPRN PRN
MIGRAINE
Senna/Docusate Sodium 1 tablet 10/11/23 06:57
Docusate W/Senna (Babita-Colace) Tablet PO 11/08/23 06:56
BIDPRN PRN
constipation
Sodium Chloride 0 flush 10/11/23 07:00
Sodium Chloride 0.9% (Flush) Syringe IV 11/08/23 06:59
PER PROTOCOL PATRICK
Trimethoprim/Sulfamethoxazole 1 tablet 10/11/23 11:00 10/11/23 11:17
Sulfamethoxazole (800 Mg)/Trimethoprim (160 Mg) Tablet PO 1 tablet
MoWeFr@0800 [facility] Administration
Review of Systems
-
Respiratory: Reports Trouble Breathing; Denies Cough or Hemoptysis
Cardiac: Reports Chest Pain
Physical Exam
-
General: Well Developed, Well Nourished and Comfortable; Negative Respiratory Distress
HEENT: Negative Jaundice
Cardiology: S1 and S2
Pulmonary: Clear
GI: Soft
Extremities: No C/C/E
Psych: Calm
Labs
Lab Results
WBC 14.4 10^3/uL (4.8-10.8) H 10/11/23 04:22
RBC 3.04 10^6/uL (4.20-5.40) L 10/11/23 04:22
Hgb 8.1 g/dL (12.0-16.0) L 10/11/23 04:22
Hct 24.4 % (37.0-47.0) L 10/11/23 04:22
MCV 80.3 fL (81.0-99.0) L 10/11/23 04:22
MCH 26.6 pg (27.0-31.0) L 10/11/23 04:22
MCHC 33.2 g/dL (33.0-37.0) 10/11/23 04:22
RDW 14.2 % (11.5-14.5) 10/11/23 04:22
Plt Count 264 10^3/uL (130-400) 10/11/23 04:22
MPV 9.7 fL (7.4-10.4) 10/11/23 04:22
Creatinine 0.5 mg/dL (0.6-1.0) L 10/11/23 04:22
Laboratory Tests
09/25/23 10/11/23
15:04 04:22
D-Dimer 3.83 H 2.10 H
LE Dopplers NEG.
Vital Signs
Vital Signs
Temp Pulse Resp BP Pulse Ox
99.4 F 103 18 122/78 100
10/11/23 12:40 10/11/23 12:40 10/11/23 12:40 10/11/23 12:40 10/11/23 12:40
[2023-10-11] MEDS: NEURONTIN 300 MG PO ×2 (17:24→22:10)
[2023-10-11] MEDS: ROXICODONE 5 MG PO (17:28)
[2023-10-11] MEDS: ATIVAN 1 MG PO (17:31)
--- NOTE | 2023-10-11 17:34 | VATNOTE ---
10/13 Upper right arm swollen in reference to left arm, denies pain. Temp of 99.2. RN and aware. US requested to r/o DVT
[2023-10-12 03:20] VITALS: BP 114/85
[2023-10-12 04:58] LABS: Hypersegmented Neutrophil 1+
[2023-10-12 06:00] VITALS: BMI 21.2
[2023-10-12 06:17] LABS: Hematocrit 25.2 % (37.0-47.0); Mean Corp Hgb Conc. 31.7 g/dL (33.0-37.0); Mean Corpuscular Hgb 26.4 pg (27.0-31.0); Mean Corpuscular Volume 83.2 fL (81.0-99.0); Platelet Count 239 10^3/uL (130-400); Red Blood Cell Count 3.03 10^6/uL (4.20-5.40); Red Cell Dist. Width 14.3 % (11.5-14.5); White Blood Cell Count 5.5 10^3/uL (4.8-10.8)
[2023-10-12 06:45] LABS: Blood Urea Nitrogen 10 mg/dl (7-17); Carbon Dioxide 30 mmol/L (22-30); Chloride 100 mmol/L (98-107); Estimated Creatinine Clearance 118 ml/min; Glucose 92 mg/dl (70-99); Potassium 4.4 mmol/L (3.5-5.1); Sodium 135 mmol/L (135-145); eGFR > 60.00
[2023-10-12 07:52] VITALS: BP 113/78
[2023-10-12] MEDS: NEURONTIN 300 MG PO ×3 (08:14→21:01)
[2023-10-12] MEDS: ZOVIRAX 400 MG PO ×2 (08:14→19:43)
[2023-10-12] MEDS: VISBIOME 1 CAP PO (08:15)
[2023-10-12] MEDS: DIFLUCAN 400 MG PO (08:16)
[2023-10-12] MEDS: THERAGRAN 1 TABLET PO (08:16)
[2023-10-12] MEDS: LOVENOX 60 MG SC (08:18)
[2023-10-12] MEDS: ROXICODONE 5 MG PO (08:26)
--- NOTE | 2023-10-12 11:11 | W.PN.ONC ---
Today's Communication / Plan
-
Lovenox transition to Eliquis
Monitor daily CBC
Suspect discomfort secondary to pleuritis associated with PE
Hemoglobin stable 8.0 g/dL no evidence of iron deficiency
Anticipate CBC stephen next week
Impression
Impression
Pleuritic chest pain
PE
DLCL
Status post pericardial drain
Plan
Plan
Chest pain could be related to PE, Neulasta, or mediastinal mass responding to Tx.
The timing seems compatible with Neulasta related. She was taking prophylactic Claritin.
Now with P
Subjective/Objective
Subjective/Objective
Patient with continued pleuritic discomfort with inspiration
Vital Signs:
Vital Signs
Temp Pulse Resp BP Pulse Ox
99.1 F 105 18 113/78 98
10/12/23 07:52 10/12/23 07:52 10/12/23 07:52 10/12/23 07:52 10/12/23 07:52
HEENT no scleral icterus
Heart regular
Lungs clear
Extremities right upper extremity edematous with with PICC line in place
Lab Results:
Laboratory Data
WBC 5.5 10^3/uL (4.8-10.8) 10/12/23 05:50
Hgb 8.0 g/dL (12.0-16.0) L 10/12/23 05:50
Plt Count 239 10^3/uL (130-400) 10/12/23 05:50
PT 13.4 Sec (11.4-14.6) 10/11/23 04:22
INR 1.04 10/11/23 04:22
APTT 27.9 Sec (23.4-35.0) 10/11/23 04:22
eGFR > 60.00 10/12/23 05:50
--- NOTE | 2023-10-12 11:18 | VATNOTE ---
Order noted to discontinue PICC line. Spoke with attending MD regarding how to proceed since patient is treated at [facility] for chemo treatments. Awaiting further guidance from .
--- NOTE | 2023-10-12 11:24 | W.PN.HOSP.TC ---
Addendum entered and electronically signed by Phillip Chappell MD 10/12/23 14:59:
Impression:
Presentation with chest pain and shortness of breath.
Acute pulmonary embolism.
Recent diagnosis of non-Hodgkin's lymphoma
� Mediastinal mass
� Malignant pericardial effusion requiring pericardiocentesis with positive pathology according to patient.
Normocytic anemia
Leukocytosis
Malignant pain likely due to lymphadenopathy.
Plan:
Acute PE.
CT chest:
�There is a small eccentric pulmonary embolism in the segmental and subsegmental branches of the posterior segment of the right lower lobe. There is probably a second small embolus in the lateral segmental and subsegmental branches of the right
lower lobe.
Large anterior mediastinal mass which appears slightly smaller than on examination of September 25, 2023, which would be suggestive of interval treatment. On review of [facility], the patient did receive first round of chemotherapy last week.
Interval resolution of right pleural effusion. Small left pleural effusion which appears unchanged.
Significant interval improvement in pericardial effusion. In [employer], reported history of pericardiocentesis. Small remaining anterior pericardial effusion is present.
PESI 89 class III/intermediate risk
Hemodynamically stable with sinus tachycardia
Follow-up echocardiogram with preserved biventricular function, no evidence of RV strain or pulmonary hypertension.
Right upper extremity DVT related to PICC line. Remove PICC line.
Lower extremity Doppler negative for DVT
Ambulatory pulse ox assessment
Suspect right upper extremity line related DVT and pulmonary embolism with small distal emboli manifesting with significant pleuritic pain.
Transition off Lovenox to Eliquis tonight.
Pain control with Tylenol [id number] and oxycodone as needed.
Incentive spirometry
Increase activity and monitor for recurrent tachycardia (cellulitis could be related to pain)
Home O2 assessment.
Normocytic anemia
No evidence of acute blood loss.
Suspect related to lymphoma (with anemia prior to chemotherapy initiation).
Iron studies pending
Follow hemoglobin while on anticoagulation
Leukocytosis:? Reactive, last week chemo followed by G-CSF
Non-Hodgkin's lymphoma
Recent diagnosis after findings of mediastinal mass and pericardial effusion.
Status post first round of chemo pending confirmation of regimen.
Continue antibiotic prophylaxis including acyclovir, Bactrim
Pain management Neurontin/oxycodone
Original Note:
Today's Communication/Plan
-
* Remove right arm PICC line.
* Transition enoxaparin to apixaban tonight.
* Optimize pain management.
* PT/OT/CM consult - anticipated discharge tomorrow.
Assessment / Plan
Assessment / Plan
Assessment
Crystal Sy, age 38, came to the hospital on 10-11-23 with chest pain and shortness of breath. She was diagnosed with diffuse large B-cell lymphoma earlier this month and received her first chemotherapy session at the [facility]
a week ago.
Impression
* Acute pulmonary embolism
* Right upper extremity deep vein thrombosis
* Pleuritic chest pain
* Diffuse large B-cell lymphoma
* Anemia of chronic disease
* Pericardial effusion
Plan
Acute pulmonary embolism
- Elevated d-dimer in the ED (lower than previously); tachycardic ED.
- CT chest found 'a small eccentric pulmonary embolism in the segmental and subsegmental branches of the posterior segment of the right lower lobe, and a second small embolus in the lateral segmental and subsegmental branches of the right lower
lobe' on 10-11-23.
- Likely due to underlying malignancy in setting of right upper extremity DVT.
- Tachycardic and tachypneic with dyspnea on arrival; tachycardia has persisted.
- Has not required oxygen, and vitals have remained stable otherwise.
- Enoxaparin weight based, at 60 mg SC BID; transition to apixaban.
- Will likely need anticoagulation until remission of lymphoma.
- Pain management as needed.
Right upper extremity deep vein thrombosis
- Tenderness and swelling around the right arm PICC line.
- Patient states that this began prior to developing chest pain and difficulty breathing.
- Ultrasound results consistent with deep vein thrombosis.
- Likely due to malignancy and PICC line; remove PICC line.
- On enoxaparin; transition to apixaban today.
Pleuritic chest pain
- Troponin, echo, ECG and other pertinent blood work unremarkable so far.
- Pain and discomfort secondary to the PE most likely.
- Slightly improved since presentation.
- Continue pain management.
- Increase oxycodone and acetaminophen dosing.
Diffuse large B-cell lymphoma
- Oncologist: Dr. nOel Tucker at the [facility].
- CT chest found 'a large soft tissue mass in the anterior mediastinum measuring up to 10.6 cm with centrally cystic/necrotic components' on 09-25-23, when she came to the ED due to worsening cough and chest pain.
- Received first round of chemotherapy last week, followed by [facility].
- Second round scheduled for 10-22-23.
Anemia of chronic disease
- Secondary to B-cell DLCL most likely.
- 8.1 on 10-11-23; stable since.
- T&S and consent in the chart.
- Transfuse for <7.
- Follow CBC.
Pericardial effusion
- Noted when she came to the [facility] emergency earlier this month when she was diagnosed with the lymphoma.
- Transferred to [facility].
- Status-post pericardiocentesis at [facility].
- Echo on 10-11-23: trivial pericardial effusion without echocardiographic evidence of hemodynamic compromise.
DVT prophylaxis
- Enoxaparin SC; transition to apixaban.
Code status
- Full.
Anticipated Discharge: 24 - 48 hours
Subjective/Interval History
-
Date of Service: October 12, 2023
Objective Data
-
Labs:
Laboratory Results
10/12/23
05:50
WBC 5.5
Hgb 8.0 L
Hct 25.2 L
Plt Count 239
Sodium 135
Potassium 4.4 D
Chloride 100
Carbon Dioxide 30
BUN 10
Creatinine 0.6
Glucose 92
Calcium 9.0
Vital Signs:
Vital Signs
Temp Pulse Resp BP Pulse Ox
99.1 F 105 18 113/78 98
10/12/23 07:52 10/12/23 07:52 10/12/23 07:52 10/12/23 07:52 10/12/23 07:52
I&O
10/11/23 10/12/23 10/13/23
06:59 06:59 06:59
Intake Total 480 / 480
Balance 480 / 480
Review of Systems
-
History Source: Patient
Constitutional: Reports Fatigue
EENT: Reports No Symptoms Reported
Respiratory: Reports Other (pain with deep inspiration)
Cardiac: Reports Chest Pain (mild at rest)
Abdomen/GI: Reports No Symptoms
Breast: Reports No Symptoms
Genitourinary: Reports No Symptoms
Musculoskeletal: Reports Other (Right arm swelling)
Skin: Reports No Symptoms
Neuro: Reports No Symptoms
Endocrine: Reports No Symptoms
Hematologic / Lymphatic: Reports No Symptoms
Allergy / Immunology: Reports No Symptoms
Physical Exam
-
General: No Apparent Distress and Comfortable
HEENT: Normocephalic, Atraumatic, Moist Mucous Membranes and Anicteric
Respiratory: Clear to Auscultation and Non Labored Respirations
Cardiac: Regular Rhythm and S1/S2
GI: Soft, Nontender, Nondistended and No Hepatosplenomegaly
Genito-urinary: No Costovertebral Tender
Musculoskeletal: No Clubbing, No Cyanosis, No Edema and Other (Right arm tenderness and swelling around the PICC line)
Skin: Warm, Dry and IV Access / Catheter Site
Neuro: Awake, Alert, Oriented and Nonfocal/Grossly Intact
Psych: Calm
[2023-10-12 11:25] VITALS: BP 113/73
--- NOTE | 2023-10-12 11:44 | PN.CDI ---
CDI
- -
CDI:
Physician Documentation Request
Admit Date: 10/11/23 06:30
Dear Doctor Ta,
Please review the following and provide your response in the progress notes.
Clinical Indicators:
The diagnosis of right upper extremity DVT was included in the signed 10/10 Peripheral RUE US
- 10/10 Peripheral Vascular US 'Positive for right upper extremity DVT. Nonocclusive thrombus within the visualized right subclavian and axillary veins extending into the right basilic vein in the upper arm'
Please indicate in your progress notes if you are in agreement that the above diagnosis is valid for this patient:
____ - RUE DVT is a valid diagnosis (Please include it in your progress notes)
____ - RUE DVT is not a valid diagnosis for this patient
____ - RUE DVT is not yet confirmed but remains a suspected condition
____ - Other
Use of terms such as suspected, likely, concern for, or probable are acceptable for a diagnosis that is being evaluated, monitored or treated as if it exists and can be coded in the inpatient setting, when documented at the time of discharge.
Thank you,
Bettye Tobar RN
CDI Specialist
Please use your independent medical judgment in providing your response.
[2023-10-12] MEDS: TYLENOL 650 MG PO (12:54)
--- NOTE | 2023-10-12 13:47 | VATNOTE ---
RUE PICC removed per MD order. TCL retrieved 39cm.
[2023-10-12 14:49] VITALS: BP 123/77
[2023-10-12] MEDS: ROXICODONE 10 MG PO (15:28)
--- NOTE | 2023-10-12 15:28 | CM ---
orchard manager reviewed patient's chart and met with patient and patient resides with her spouse and children in a 2 story home, patient is independent with adl's and ambulation, no dme. Patient for possible discharge tomorrow, maybe on Eliquis.
Plan; Home when stable.
[2023-10-12] MEDS: TYLENOL PO (17:05)
[2023-10-12] MEDS: ELIQUIS 10 MG PO (19:43)
[2023-10-12 19:44] VITALS: BP 117/78
[2023-10-12] MEDS: SENOKOT-S 1 TABLET PO (19:53)
[2023-10-12] MEDS: TYLENOL 1000 MG PO (21:01)
[2023-10-12 22:31] VITALS: BP 105/74
[2023-10-13] MEDS: ROXICODONE 10 MG PO (02:21)
[2023-10-13 03:40] VITALS: BP 100/62
[2023-10-13 06:00] VITALS: BMI 21.4
[2023-10-13 07:11] LABS: Hematocrit 25.4 % (37.0-47.0); Hemoglobin 8.1 g/dL (12.0-16.0); Mean Corp Hgb Conc. 31.9 g/dL (33.0-37.0); Mean Corpuscular Hgb 26.3 pg (27.0-31.0); Mean Corpuscular Volume 82.5 fL (81.0-99.0); Mean Platelet Volume 10.1 fL (7.4-10.4); Platelet Count 248 10^3/uL (130-400); Red Blood Cell Count 3.08 10^6/uL (4.20-5.40); Red Cell Dist. Width 14.5 % (11.5-14.5)
[2023-10-13 07:15] LABS: White Blood Cell Count 2.3 10^3/uL (4.8-10.8)
[2023-10-13 07:40] VITALS: BP 113/75
[2023-10-13 07:46] LABS: Blood Urea Nitrogen 13 mg/dl (7-17); Carbon Dioxide 30 mmol/L (22-30); Chloride 98 mmol/L (98-107); Estimated Creatinine Clearance 101 ml/min; Glucose 105 mg/dl (70-99); Potassium 5.4 mmol/L (3.5-5.1); Sodium 135 mmol/L (135-145); eGFR > 60.00
[2023-10-13] MEDS: ZOVIRAX 400 MG PO (09:11)
[2023-10-13] MEDS: TYLENOL 1000 MG PO (09:11)
[2023-10-13] MEDS: DIFLUCAN 400 MG PO (09:11)
[2023-10-13] MEDS: NEURONTIN 300 MG PO (09:11)
[2023-10-13] MEDS: ELIQUIS 10 MG PO (09:12)
[2023-10-13] MEDS: VISBIOME 1 CAP PO (09:27)
[2023-10-13] MEDS: BACTRIM DS 800 MG/160 MG 1 TABLET PO (09:27)
[2023-10-13 09:47] LABS: % Basophils 1.6 % (0-2); % Eosinophils 5.6 % (0-6); % Immature Granulocytes 6.9 % (0-0.5); % Lymphocytes 19.8 % (20.5-51.1); % Monocytes 14.9 % (1.7-9.3); % Neutrophils 51.2 % (42.2-75.2); Absolute Eosinophils 0.1 10^3/uL (0-0.7); Absolute Immature Granulocytes 0.2 10^3/uL (0-0.05); Absolute Lymphocytes 0.5 10^3/uL (1.2-3.4); Absolute Monocytes 0.4 10^3/uL (0.1-0.6); Absolute Neutrophils 1.3 10^3/uL (1.4-6.5); Nucleated Red Blood Cells % 0 %
[2023-10-13 10:01] LABS: LDH 160 U/L (120-246)
--- NOTE | 2023-10-13 10:46 | W.PN.HOSP.TC ---
Addendum entered and electronically signed by Phillip Chappell MD 10/13/23 15:01:
Patient seen and examined
Discussed with resident
Impression/plan:
Acute pulmonary embolism
Right upper extremity DVT secondary to PICC line.
Right-sided pleuritic chest pain
Mild hyperkalemia secondary to Bactrim.
Neutropenia secondary to recent chemotherapy.
Large cell lymphoma
Respiratory status remains stable with no requirements for supplemental oxygen
Pain improved and reasonably controlled with combination of Tylenol and oxycodone.
Has been transition off Lovenox to Eliquis.
Mild hyperkalemia with potassium 5.4 most likely related to Bactrim administration which given for prophylaxis postchemotherapy. Will provide single dose of Lokelma 10 mg prior to discharge. Patient will be following with BMP on 10/15. She will be
in contact with her primary oncologist with BMP results for determination of further administration of Bactrim.
Follow-up with primary oncology at [facility]
Original Note:
Today's Communication/Plan
-
* Anticipated discharge today.
Assessment / Plan
Assessment / Plan
Assessment
Crystal Sy, age 38, came to the hospital on 10-11-23 with chest pain and shortness of breath. She was diagnosed with diffuse large B-cell lymphoma earlier this month and received her first chemotherapy session at the [facility]
a week ago.
Impression
* Acute pulmonary embolism
* Right upper extremity deep vein thrombosis
* Pleuritic chest pain
* Diffuse large B-cell lymphoma
* Mild hyperkalemia
* Anemia of chronic disease
* Pericardial effusion
Plan
Acute pulmonary embolism
- Elevated d-dimer in the ED (lower than previously); tachycardic ED.
- CT chest found 'a small eccentric pulmonary embolism in the segmental and subsegmental branches of the posterior segment of the right lower lobe, and a second small embolus in the lateral segmental and subsegmental branches of the right lower
lobe' on 10-11-23.
- Likely due to underlying malignancy in setting of right upper extremity DVT.
- Tachycardic and tachypneic with dyspnea on arrival; tachycardia has persisted.
- Has not required oxygen, and vitals have remained stable otherwise.
- Enoxaparin weight based, at 60 mg SC BID initially; now transitioned to apixaban.
- Will likely need anticoagulation until remission of lymphoma.
- Pain management as needed.
Right upper extremity deep vein thrombosis
- Tenderness and swelling around the right arm PICC line.
- Patient states that this began prior to developing chest pain and difficulty breathing.
- Ultrasound results consistent with deep vein thrombosis.
- Likely due to malignancy and PICC line; remove PICC line.
- On enoxaparin; transition to apixaban today.
Pleuritic chest pain
- Troponin, echo, ECG and other pertinent blood work unremarkable so far.
- Pain and discomfort secondary to the PE most likely.
- Slightly improved since presentation.
- Continue pain management.
- Increase oxycodone and acetaminophen dosing.
Diffuse large B-cell lymphoma
- Oncologist: Dr. Onel Tucker at the [facility].
- CT chest found 'a large soft tissue mass in the anterior mediastinum measuring up to 10.6 cm with centrally cystic/necrotic components' on 09-25-23, when she came to the ED due to worsening cough and chest pain.
- Received first round of chemotherapy last week, followed by [facility].
- On prophylaxis with levofloxacin, fluconazole and acyclovir; continue.
- Second round scheduled for 10-22-23.
Mild hyperkalemia
- Noted on 10-13-23.
- LDH within normal limits on 10-13-23.
- She has remained asymptomatic.
- Monitor BMP.
Anemia of chronic disease
- Secondary to B-cell DLCL most likely.
- 8.1 on 10-11-23; stable since.
- T&S and consent in the chart.
- Transfuse for <7.
- Follow CBC.
Pericardial effusion
- Noted when she came to the [facility] emergency earlier this month when she was diagnosed with the lymphoma.
- Transferred to [facility].
- Status-post pericardiocentesis at [facility].
- Echo on 10-11-23: trivial pericardial effusion without echocardiographic evidence of hemodynamic compromise.
DVT prophylaxis
- On apixaban.
Code status
- Full.
Anticipated Discharge: Today
Subjective/Interval History
-
Date of Service: October 13, 2023
Objective Data
-
Labs:
Laboratory Results
10/13/23
06:21
WBC 2.3 L*
Hgb 8.1 L
Hct 25.4 L
Plt Count 248
Sodium 135
Potassium 5.4 H
Chloride 98
Carbon Dioxide 30
BUN 13
Creatinine 0.7
Glucose 105 H
Calcium 9.0
Vital Signs:
Vital Signs
Temp Pulse Resp BP Pulse Ox
98.9 F 115 18 113/75 97
10/13/23 09:33 10/13/23 07:40 10/13/23 07:40 10/13/23 07:40 10/13/23 07:40
I&O
10/12/23 10/13/23 10/14/23
06:59 06:59 06:59
Intake Total 480 / 480 1919
Balance 480 / 480 1919
Review of Systems
-
History Source: Patient
Constitutional: Reports Fatigue (improved)
EENT: Reports No Symptoms Reported
Respiratory: Reports Other (pain with deep inspiration; improved)
Cardiac: Reports Chest Pain (mild at rest; improved)
Abdomen/GI: Reports No Symptoms
Breast: Reports No Symptoms
Genitourinary: Reports No Symptoms
Musculoskeletal: Reports Other (Right arm swelling; reduced)
Skin: Reports No Symptoms
Neuro: Reports No Symptoms
Endocrine: Reports No Symptoms
Hematologic / Lymphatic: Reports No Symptoms
Allergy / Immunology: Reports No Symptoms
Physical Exam
-
General: No Apparent Distress and Comfortable
HEENT: Normocephalic, Atraumatic, Moist Mucous Membranes and Anicteric
Respiratory: Clear to Auscultation and Non Labored Respirations
Cardiac: Regular Rhythm and S1/S2
GI: Soft, Nontender, Nondistended and No Hepatosplenomegaly
Genito-urinary: No Costovertebral Tender
Musculoskeletal: No Clubbing, No Cyanosis, No Edema and Other (Right arm tenderness and swelling; reduced)
Skin: Warm, Dry and IV Access / Catheter Site
Neuro: Awake, Alert, Oriented and Nonfocal/Grossly Intact
Psych: Calm
[2023-10-13 11:00] VITALS: BP 115/73
[2023-10-13] MEDS: LEVAQUIN 500 MG PO (11:27)
[2023-10-13] MEDS: THERAGRAN 1 TABLET PO (11:27)
--- NOTE | 2023-10-13 12:36 | W.DS.TRANS ---
DC Summary - [employer] [facility]
-
Discharge Instructions:
Discharge Diagnosis/Procedures Pulmonary embolism.
RUE DVT, picc line removed
Hyperkalemia on Bactrim.
Lymphoma
Diet Regular
Blood Work BMP 10/16/23
Instructions:
Stand-Alone Forms:
Changes to Home Medications: Yes
Discharge Medications:
DC Medications w/original date entered in [facility]
Lactobac no.2-Bifidobac no.1-S. thermo 112.5 billion cell capsule (Visbiome) 1 cap PO DAILY Gastrointestinal Issue 10/11/23
acyclovir 400 mg tablet 400 mg PO BID prophylaxis 10/11/23
fluconazole 200 mg tablet 400 mg PO DAILY prophylaxis 10/11/23
gabapentin 300 mg capsule 300 mg PO TID Pain 10/11/23
levofloxacin 500 mg tablet 500 mg PO DAILY Infection 10/11/23
loratadine 10 mg tablet (Claritin) 10 mg PO DAILYPRN PRN the day of and 3 day after injection 10/11/23
ondansetron HCl 8 mg tablet 8 mg PO [id number] PRN nausea 10/11/23
rizatriptan 10 mg disintegrating tablet 0 mg PO .COMPLEX headache 10/11/23
sulfamethoxazole 800 mg-trimethoprim 160 mg tablet (Bactrim DS) 1 tab PO MOWEFR prophylaxis 10/11/23
therapeutic multivitamin 1 tab PO DAILY Supplement 10/11/23
apixaban 5 mg tablet (Eliquis) 10 mg (2 x 5 mg) PO BID #90 tabs 10/13/23
oxycodone 5 mg tablet 5 mg PO TIDPRN PRN severe pains #30 tabs 10/13/23
Home Medication Changes
Eliquis added
Pending Results: No
--- NOTE | 2023-10-13 12:56 | CM ---
Patient is for discharge today, patient to return to home on Eliquis, cost of Eliquis is $50 per month, patient made aware and coupon provided.
Plan; Home today.
[2023-10-13] MEDS: LOKELMA 10 GRAM PO (13:16)
--- NOTE | 2023-10-13 13:28 | W.DCSUMMARY ---
Documented by User: Peewee Cross MD, Resident 10/13/23 14:39
Discharge Summary
Discharge Data
Date of Admission: 10/11/23
Date of Discharge: 10/13/23
-
Pending Results: No
Hospital Course
Primary discharge diagnosis
* Acute pulmonary embolism
Secondary discharge diagnoses
* Right upper extremity deep vein thrombosis
* Pleuritic chest pain
* Diffuse large B-cell lymphoma
* Mild hyperkalemia
* Anemia of chronic disease
* Pericardial effusion
Hospital course
Crystal Ott, age 38, came to the emergency on 10-11-23 with progressive shortness of breath and chest pain. She was diagnosed with diffuse large B-cell lymphoma earlier in the month along with malignant pericardial effusion s/p
pericardiocentesis; she began chemotherapy a week prior to her presentation. In the ED, she was found to have two small pulmonary embolisms. She was not a candidate for thrombolysis, and was started on therapeutic weight-based enoxaparin. Right
upper extremity ultrasound was positive for DVT associated with the PICC line, which was removed subsequently. The pain improved with more optimal pain management. Vitals remained stable throughout her hospital course. Other imaging such as echo,
lower extremity ultrasound, ECG and blood work remained unremarkable. WBC count had dropped on the day of the discharge, likely because of anticipated CBC stephen associated with chemotherapy. Mild hyperkalemia was also noted, for which she received
sodium zirconium cyclosilicate; she was advised to hold her trimethoprim-sulfamethoxazole until re-checking BMP outpatient. She was transitioned to apixaban 10 mg twice a day; continue the dosing for 7 days (total 14 doses), then switch to 5 mg
twice a day. Continue apixaban at least until the DLCL is in remission.
Discharge Plan
-
Patient Disposition: Home (Routine Discharge)
Discharge Diagnosis/Procedures: Pulmonary embolism.
RUE DVT, picc line removed
Hyperkalemia on Bactrim.
Lymphoma
Condition: Good
Diet: Regular
Blood Work: BMP 10/16/23
Referrals:
Kristyn Serrano CRNP [Family Provider] -
Additional Discharge Medication Instructions: Hold next dose of Bactrim pending BMP/Potassium level
Prescriptions:
New
Eliquis 5 mg Tablet
10 mg PO BID Qty: 90 0RF
Rx Instructions:
10mg BID for 7 days
5mg BID
Continued
ondansetron HCl 8 mg Tablet
8 mg PO [id number] PRN (Reason: nausea)
fluconazole 200 mg Tablet
400 mg PO DAILY
Patient Comments:
for 14 days starting 10/09/23
acyclovir 400 mg Tablet
400 mg PO BID
rizatriptan 10 mg Tablet,Disintegrating
0 mg PO .COMPLEX
Rx Instructions:
take 1 tab at onset of headache; if no relief may repeat 1 tab after at least 2 hrs; max = 3 tabs/24 hr
gabapentin 300 mg Capsule
300 mg PO TID
levofloxacin 500 mg Tablet
500 mg PO DAILY
Patient Comments:
for 14 days starting 10/09/23
loratadine [Claritin] 10 mg Tablet
10 mg PO DAILYPRN PRN (Reason: the day of and 3 day after injection)
therapeutic multivitamin Tablet
1 tab PO DAILY
Visbiome 112.5 billion cell Capsule
1 cap PO DAILY
oxycodone 5 mg Tablet
5 mg PO TIDPRN PRN (Reason: severe pains) Qty: 30 0RF
Held
sulfamethoxazole-trimethoprim [Bactrim DS] 800-160 mg Tablet
1 tab PO MOWEFR
Hold Instructions: Resume on 10/16/23. Check BMP and Potassium level prior to resume
Discharge Orders:
Discharge Patient (As Directed); Ordered 10/13/23
Ordered By: Phillip Chappell
Discharge Date and Time
Discharge Date/Time: 10/13/23 14:46
Print Language: PRYDEINIG

Documented by User: Phillip Chappell MD 10/13/23 14:56
Discharge Summary
Discharge Data
Date of Admission: 10/11/23
Date of Discharge: 10/13/23
Discharge Plan
-
Patient Disposition: Home (Routine Discharge)
Discharge Diagnosis/Procedures: Pulmonary embolism.
RUE DVT, picc line removed
Hyperkalemia on Bactrim.
Lymphoma
Condition: Good
Diet: Regular
Blood Work: BMP 10/16/23
Referrals:
Kristyn Serrano CRNP [Family Provider] -
Additional Discharge Medication Instructions: Hold next dose of Bactrim pending BMP/Potassium level
Prescriptions:
New
Eliquis 5 mg Tablet
10 mg PO BID Qty: 90 0RF
Rx Instructions:
10mg BID for 7 days
5mg BID
Continued
ondansetron HCl 8 mg Tablet
8 mg PO [id number] PRN (Reason: nausea)
fluconazole 200 mg Tablet
400 mg PO DAILY
Patient Comments:
for 14 days starting 10/09/23
acyclovir 400 mg Tablet
400 mg PO BID
rizatriptan 10 mg Tablet,Disintegrating
0 mg PO .COMPLEX
Rx Instructions:
take 1 tab at onset of headache; if no relief may repeat 1 tab after at least 2 hrs; max = 3 tabs/24 hr
gabapentin 300 mg Capsule
300 mg PO TID
levofloxacin 500 mg Tablet
500 mg PO DAILY
Patient Comments:
for 14 days starting 10/09/23
loratadine [Claritin] 10 mg Tablet
10 mg PO DAILYPRN PRN (Reason: the day of and 3 day after injection)
therapeutic multivitamin Tablet
1 tab PO DAILY
Visbiome 112.5 billion cell Capsule
1 cap PO DAILY
oxycodone 5 mg Tablet
5 mg PO TIDPRN PRN (Reason: severe pains) Qty: 30 0RF
Held
sulfamethoxazole-trimethoprim [Bactrim DS] 800-160 mg Tablet
1 tab PO MOWEFR
Hold Instructions: Resume on 10/16/23. Check BMP and Potassium level prior to resume
Discharge Orders:
Discharge Patient (As Directed); Ordered 10/13/23
Ordered By: Phillip Chappell
Discharge Date and Time
Discharge Date/Time: 10/13/23 14:46
Print Language: PRYDEINIG
== END 2023-10-13 14:46 | disposition home or self-care (01) | DRG 176 ==
LOC: 4 WEST ACU 06:30
PROVIDERS: Student in an Organized Health Care Education/Training Program; ADMITTING PHYSICIAN Internal Medicine; ATTENDING PHYSICIAN Internal Medicine; CONSULT PHYSICIAN Internal Medicine Critical Care Medicine; EMERGENCY PHYSICIAN Student in an Organized Health Care Education/Training Program; FAMILY PHYSICIAN Nurse Practitioner Family; OTHER PHYSICIAN Internal Medicine Hematology & Oncology
DX: I26.93 Single subsegmental thrombotic pulmonary embolism without acute cor pulmonale (principal); C85.90 Non-Hodgkin lymphoma, unspecified, unspecified site; C83.30 Diffuse large B-cell lymphoma, unspecified site; I31.31 Malignant pericardial effusion in diseases classified elsewhere; E87.5 Hyperkalemia
CPT/HCPCS: 71046; 71275; 80048; 80053; 82728; 83540; 83550; 83615; 83735; 83880; 84443; 84484; 84703; 85025; 85027; 85045; 85379; 85610; 85730; 86850; 86900; 86901; 93005; 93306; 93970; 93971; 97165; 99285; Q9967

== ENCOUNTER 2023-10-17 05:19 | Inpatient (IN) | payer BC, SELFPAY ==
[2023-10-16 23:50] VITALS: BP 146/72
[2023-10-17] VITALS (11 sets, daily range): BP systolic 111–127; BP diastolic 70–90; PULSE 97–115; BMI 21.3; BMI 21.0
[2023-10-17 01:33] LABS: Hematocrit 23.3 % (37.0-47.0); Hemoglobin 7.7 g/dL (12.0-16.0); Mean Corpuscular Volume 81.8 fL (81.0-99.0); Mean Platelet Volume 9.8 fL (7.4-10.4); Platelet Count 182 10^3/uL (130-400); Red Blood Cell Count 2.85 10^6/uL (4.20-5.40); Red Cell Dist. Width 16.7 % (11.5-14.5); White Blood Cell Count 39.3 10^3/uL (4.8-10.8)
[2023-10-17 01:34] LABS: Urine Albumin Negative (Neg - Trace); Urine Bilirubin Negative (Negative); Urine Character Clear (Clear); Urine Color Yellow; Urine Glucose Negative (Negative); Urine Ketone Negative (Negative); Urine Leukocyte Negative (Negative); Urine Nitrite Negative (Negative); Urine Occult Blood Negative (Negative); Urine Urobilinogen Negative (Neg - 1+)
[2023-10-17 01:40] LABS: Lactic Acid 0.8 mmol/L (0.7-2.0)
[2023-10-17 01:42] LABS: ALT (SGPT) 38 U/L (0-35); AST (SGOT) 37 U/L (14-36); Albumin 3.9 g/dl (3.5-5.0); Alkaline Phosphatase 143 U/L (38-126); Blood Urea Nitrogen 14 mg/dl (7-17); Calcium 9.1 mg/dl (8.4-10.2); Carbon Dioxide 26 mmol/L (22-30); Chloride 101 mmol/L (98-107); Estimated Creatinine Clearance 101 ml/min; Glucose 106 mg/dl (70-99); Potassium 3.5 mmol/L (3.5-5.1); Sodium 138 mmol/L (135-145); Total Bilirubin 0.3 mg/dl (0.2-1.3); Total Protein 6.1 g/dl (6.3-8.2); eGFR > 60.00
--- NOTE | 2023-10-17 02:06 | ED.GENMED ---
History of Present Illness
General
Chief Complaint: Fever
Source: patient
Exam Limitations: none
Time Seen by Provider: 10/17/23 01:08
Nursing documentation reviewed up to this point in time: agreed with
History of Present Illness
History of Present Illness:
38-year-old female presents with fever. She was just discharged from [facility] last week for pulmonary emboli and blood clots in her right arm. Patient was recently diagnosed with non-Hodgkin's lymphoma. Tonight she awakened feeling
well. She states that she got a lot done throughout the day. Around 9 PM she started to feel tired and weak. She watched her temperature rise. She called her oncologist at [facility] who advised her to come into the emergency
department. Patient did take Tylenol approximately 1 hour prior to arrival. She does report that her son has a cold.
Vital signs are stable. Patient not hypoxic
Nursing note reviewed. I agree with nursing documentation up to this point in time.
Home Meds and allergies reviewed.
NUMBER AND COMPLEXITY OF PROBLEMS ADDRESSED AT THE ENCOUNTER
� Chronic conditions affecting care: Immunocompromise, non-Hodgkin's lymphoma. Pulmonary embolism. Patient on Eliquis.
� Acute Exacerbation and/or Progression of Chronic Illness:
� Differential Diagnosis includes: Neutropenic fever, fever
AMOUNT AND/OR COMPLEXITY OF DATA TO BE REVIEWED AND ANALYZED
I performed an independent evaluation of the following and my interpretation is:
EKG:
CT:
X-rays:
Ultrasound:
Laboratory Studies: Hemoglobin is 7.7 is similar to previous hemoglobin of 8.0. White blood cell count is 39.3. Patient had Neulasta over 1 week ago.
Other:
Review of other/old records:
Clinical information was obtained by an independent historian:
Prescriptions/Medications Considered but not given:
Further testing considered but not performed:
RISK OF COMPLICATIONS AND/OR MORBIDITY OR MORTALITY OF PATIENT MANAGEMENT
Social determinants of health affecting care: Good Social Support
Discussion with other providers:
Escalation of care including admission/observation vs risk of discharge considered:
CRITICAL CARE NOTE:
Total Time (exclusive of procedures):
Update:
Past History
Past History
ED Past Medical History: Other (migraines )
ED Past Surgical History: and Gynecological
Social History
Tobacco: Non-smoker
Alcohol: Occasional
Drug: None
Living: with family
Phy Exam
Physical Exam
Physical Exam:
Physical Exam
Vital signs and allergy list reviewed and agreed with.
GENERAL: Alert , in minimal apparent distress
EYE: pupils equal, EOMI, anicteric
NECK: Supple, no significant adenopathy. No masses. Trachea midline
ENT: Oropharynx is clear, mmm.
CARDIAC: Regular rate and rhythm . No M/R/G
LUNGS: Clear breath sounds bilaterally, no acute respiratory distress, no wheezes/rales/rhonchi
ABDOMEN: Soft, without focal tenderness, no r/g, no cvat. Normal BSx4q
NEUROLOGICAL: Alert and oriented, no focal neuro deficits
SKIN: Warm and dry, skin intact.
MUSCULOSKELETAL: No edema, well perfused. Moves all 4 extremities
PSYCH: Normal and appropriate interaction.
Course
Orders/Labs/Results
Orders:
Orders
10/17/23 01:10
Complete Blood Count/With Diff Urgent
Comprehensive Metabolic Panel Urgent
Lactic Acid Urgent
Manual Differential Urgent
Blood Culture Urgent
ROLDAN Source: Blood/Venous
Specimen Description:
Blood Culture Urgent
ROLDAN Source: Blood/Venous
Specimen Description:
10/17/23 01:18
Urinalysis Reflex To Culture Urgent
Date Specimen was Collected: 10/17/23
Time Specimen was Collected: 01:16
10/17/23 02:06
CR Chest - 2 Views Urgent
Comment:
Reason For Exam: fever
10/17/23 02:08
0.9% Sodium Chloride 1000 ml [Nss] 1,000 ml IV BOLUS
10/17/23 02:10
COVID-19 Antigen Urgent
Source: Nasal Swab
Influenza A+B Rapid Molecular Urgent
ROLDAN Source: Nasal Swab
Specimen Description:
10/17/23 02:41
Piperacillin/Tazo 4.5 Gram [Zosyn] 4.5 gram in 100 ml IV NOW
10/17/23 03:00
Electrocardiogram (*1) Urgent
Reason for Study: QTc Monitoring
EKG- Treatment ONCE
10/17/23 05:02
Admit/Transfer Patient As Directed
Co-Sign Provider:
Level of Care: Inpatient admission
Assign to:: Telemetry
Physician / Group: Jann
Diagnosis: Fever, Leukocytosis, DLBCL
Reason for Telemetry: Arrhythmia
Date to Stop Telemetry: 10/20/23
Time to Stop Telemetry: 11:00
Reason for Hospitalization: Fever, Leukocytosis, DLBCL
Expected length of stay greater than two midnights?: Yes
ELOS- Estimated Length of Stay in days: 3
I certify the patient meets the requirements for IP care: Yes
10/17/23 05:04
Code Status As Directed
Resuscitation Status: Full Code
10/17/23 05:18
Rapid Strep Group A Urgent
ROLDAN Source: Throat/Pharynx
Specimen Description:
10/17/23 Breakfast
Regular
Enoxaparin Sodium [Lovenox] 60 mg SC Q12H
10/17/23 06:05
Acetaminophen [Tylenol] 650 mg PO Q4HPRN PRN
Lactated Ringers [Lr] 1,000 ml IV 100 mls/hr
Oxycodone [Roxicodone] 5 mg PO TIDPRN PRN
10/17/23 06:05
Consult Notification Routine
Specialty to Notify: Oncology
ONCOLOGY CONSULT Routine
Consulting Provider: Nimesh Liu
Was physician already notified: No
Reason for consult: DLBCL, Leukocytosis / Fever
Activity As Directed
Activity Level: Ambulate
EKG with chest pain [ECG as needed] As Directed
ECG as needed for:: Chest Pain
I/O [Intake/ Output] As Directed
Frequency: Per unit guidelines
Orthostatic Vital Signs As Directed
Orthostatic VS Frequency: BID
Vital Signs As Directed
Frequency: Per unit guidelines
Weight As Directed
Frequency: Daily
Oxygen Therapy [O2 Therapy] [RESP] Routine
Titrate/Wean O2 to maintain O2 sat greater than (%): 94
10/17/23 08:00
Acyclovir [Zovirax] 400 mg PO BID
Diphenhydramine [Benadryl] 12.5 mg IV TID
Famotidine [Pepcid] 20 mg PO BID
Fluconazole [Diflucan] 400 mg PO DAILY
Gabapentin [Neurontin] 300 mg PO TID
Lactobac/Bifidobac [Visbiome] 1 cap PO DAILY
10/17/23 10:00
Piperacillin/Tazo 3.375 Gram [Zosyn] 3.375 gram in 50 ml IV Q6H
10/18/23 06:00
Basic Metabolic Panel IN AM
Complete Blood Count/No Diff IN AM
LFT [Njnvh-Cixn-Rwjwmiq] IN AM
10/18/23 08:00
Sulfamethox./Trimethoprim Ds [Bactrim Ds 800 mg/160 mg] 1 tablet PO MoWeFr@0800
10/20/23 11:00
DC Protocol for Telemetry ONCE
Abnormal Lab Results
10/17/23
01:10
WBC 39.3 H 10^3/uL
(4.8-10.8)
RBC 2.85 L 10^6/uL
(4.20-5.40)
Hgb 7.7 L g/dL
(12.0-16.0)
Hct 23.3 L %
(37.0-47.0)
RDW 16.7 H %
(11.5-14.5)
Abs Neuts (Manual) 27.5 H 10^3/uL
(1.4-6.5)
Band Neutrophils 8 H %
(0-3)
Lymphocytes (Manual) 2 L %
(20-51)
Monocytes (Manual) 10 H %
(2-9)
Glucose 106 H mg/dl
(70-99)
AST 37 H U/L
(14-36)
ALT 38 H U/L
(0-35)
Alkaline Phosphatase 143 H U/L
(38-126)
Total Protein 6.1 L g/dl
(6.3-8.2)
10/17/23 01:10
10/17/23 01:10
Vital Signs
Initial and Last Documented VS:
Initial Vital Signs
Temp Pulse Resp BP Pulse Ox
102.2 F H 122 18 146/72 99
10/16/23 23:50 10/16/23 23:50 10/16/23 23:50 10/16/23 23:50 10/16/23 23:50
Last Documented Vital Signs
Temp Pulse Resp BP Pulse Ox
98.4 F 96 17 117/77 98
10/17/23 01:13 10/17/23 05:45 10/17/23 05:45 10/17/23 03:00 10/17/23 05:45
*Radiology
Radiology exam reviewed: all reviewed NAD by ED Provider
*Pulse Oximetry
Patient hypoxic: no
*Critical Care Note
Total Time (30-74mins, 75-104mins- exclusive of procedures): Not Applicable
Update Note
Update Note:
Blood consent signed and on the chart. No blood being ordered now. Patient being covered for unknown infection.
ED Attending Note
-
Portions of this chart may have been created with voice recognition software.� Occasional wrong word or��sound alike� substitutions may have occurred due to the inherent limitations of voice recognition software.
Discharge Plan
Departure
Patient Disposition: Admit
Date of Disposition: 10/17/23
Time of Disposition: 03:01
Admit to: Telemetry
Presentation/result/management discussed w/ accepting MD/DO: Hospitalist
Condition: Good
Discharge Problem:
Fever, B-cell non-Hodgkin lymphoma
Interventions
Interventions:
*Risk Screen - Suicide Last Done: 10/17/23 00:57
*General Assessment Last Done: 10/17/23 00:57
*Neglect/Abuse Screening Last Done: 10/17/23 00:57
ED- Fall Risk Assessment Last Done: 10/17/23 00:57
*ED COVID-19 Vaccine History Last Done: 10/17/23 00:54
*Nursing Disposition Last Done: 10/17/23 06:08
ED- Neurological Assessment Last Done: 10/17/23 02:08
ED-Skin Assessment Last Done: 10/17/23 02:08
Discharge Date and Time
Discharge Date/Time: 10/17/23 06:09
[2023-10-17 02:13] LABS: Absolute Neutrophils -Man Diff 27.5 10^3/uL (1.4-6.5); Band Neutrophils 8 % (0-3); Lymphocytes 2 % (20-51); Metamyelocytes 12 % (-); Monocytes 10 % (2-9); Myelocytes 6 % (-); Normal RBC Morphology Yes; Platelets Checked Yes; Segmented Neutrophils 62 % (42-75)
[2023-10-17] MEDS: NSS 1000 IV (02:16)
[2023-10-17 02:19] LABS: Anisocytosis 1+; Hypochromasia Slight
[2023-10-17 02:35] LABS: Total Cells Counted 100
[2023-10-17 02:37] LABS: COVID-19 Antigen Negative (Negative)
[2023-10-17] MEDS: ZOSYN 100 IV (02:44)
--- NOTE | 2023-10-17 05:11 | HPS.HSE ---
Family Physician
-
Family Physician: Kristyn Serrano
Chief Complaint
-
Sore Throat, Fever, Chills
History of Present Illness
Patient is a 38y F with PMH significant for DLBCL on chemotherapy who presents to ED complaining of fevers / chills and sore throat this evening. Patient states that she was feeling very well for most of the day today. Around 9PM, she had
sudden onset of shaking chills and severe sore throat. She had pain with swallowing. She checked her temperature at home and called her Oncologist when it exceeded 100 degrees. She was advised to present to the ED for further evaluation.
In the ED, patient has fever to 102.2 degrees. Her WBC are markedly elevated compared to prior.
Patient denies headache, cough, chest pain, N/V/D or urinary complaints.
She states that her tongue has been full / swollen ever since she started taking Eliquis several days ago.
She denies any changes in her med regimen since her recent discharge.
Patient was hospitalized here 10/10 - 10/12 secondary to pleuritic pain found to be due to pulmonary emboli. She was started on Eliquis at that time.
Patient completed her first round of chemo one week ago (R-EPOCH) and received dose of Neulasta on 10/09/23. She is followed at [facility].
Medical History
Past Medical History
Past Medical History: Reports Other
Additional Past Medical History:
DLBCL
Malignant Pericardial Effusion
Past Surgical History: Reports Other
Additional Past Surgical History:
Pericardiocentesis
Lymph Node Biopsy
Social History
Tobacco: Non-smoker
Alcohol: Occasional
Drug: None
Family History
Family History: Hypertension and Other (Father: Thyroid Disease)
Allergies / Home Medications
Allergies reflects when Allergies were last updated in [employer].
Home Medications with original date entered in [employer]
Allergy/Medication List:
Allergies
Allergy/AdvReac Type Severity Reaction Status Date / Time
No Known Allergies Allergy Verified 10/16/23 23:41
Home Medications
Lactobac no.2-Bifidobac no.1-S. thermo 112.5 billion cell capsule (Visbiome) 1 cap PO DAILY Gastrointestinal Issue 10/11/23
acyclovir 400 mg tablet 400 mg PO BID prophylaxis 10/11/23
fluconazole 200 mg tablet 400 mg PO DAILY prophylaxis 10/11/23
gabapentin 300 mg capsule 300 mg PO TID Pain 10/11/23
levofloxacin 500 mg tablet 500 mg PO DAILY Infection 10/11/23
loratadine 10 mg tablet (Claritin) 10 mg PO DAILYPRN PRN the day of and 3 day after injection 10/11/23
ondansetron HCl 8 mg tablet 8 mg PO [id number] PRN nausea 10/11/23
rizatriptan 10 mg disintegrating tablet 0 mg PO .COMPLEX headache 10/11/23
sulfamethoxazole 800 mg-trimethoprim 160 mg tablet (Bactrim DS) 1 tab PO MOWEFR prophylaxis 10/11/23
therapeutic multivitamin 1 tab PO DAILY Supplement 10/11/23
apixaban 5 mg tablet (Eliquis) 10 mg (2 x 5 mg) PO BID #90 tabs 10/13/23
oxycodone 5 mg tablet 5 mg PO TIDPRN PRN severe pains #30 tabs 10/13/23
Review of Systems
-
History Source: Patient
A 12 point ROS was completed and negative except as noted: Yes
Constitutional: Reports Fever, Fatigue and Chills
EENT: Reports Sore Throat; Denies Runny Nose
Respiratory: Denies Cough or Trouble Breathing
Cardiac: Denies Chest Pain or Palpitations
Abdomen/GI: Denies Abdominal Pain, Nausea, Vomiting or Diarrhea
: Denies Dysuria, Frequency or Flank Pain
Musculoskeletal: Reports Muscle Pain; Denies Joint Pain or Edema
Neurological: Denies Dizzy or Headache
Psych: Denies Depression or Anxiety
Physical Exam
Vital Signs
Vital Signs
Temp Pulse Resp BP Pulse Ox
98.4 F 103 14 117/77 100
10/17/23 01:13 10/17/23 03:00 10/17/23 03:00 10/17/23 03:00 10/17/23 03:00
Physical Exam
General: Other (38y F in mild distress due to sore throat / fever.)
HEENT: Other (MMM, tongue enlarged without ulcerations / coating / etc. No evident mucosal lsions, ulcerations, etc. Pos cervical lymphadenopathy)
Respiratory: Clear; No Wheezes, Rales or Rhonchi
Cardiac: S1/S2 and Tachycardia; No Murmur
GI: Soft, Non Tender, Non Distended and Normal Bowel Sounds
Musculoskeletal: No Clubbing, No Cyanosis and No Edema
Neuro: AO x 3
Laboratory Results
-
10/17/23 01:10
10/17/23 01:10
Laboratory Results
Lactic Acid 0.8 mmol/L (0.7-2.0) 10/17/23 01:10
Total Bilirubin 0.3 mg/dl (0.2-1.3) 10/17/23 01:10
AST 37 U/L (14-36) H 10/17/23 01:10
ALT 38 U/L (0-35) H 10/17/23 01:10
Alkaline Phosphatase 143 U/L (38-126) H 10/17/23 01:10
Impression/Plan
-
A/P: Patient is a 38y F with PMH significant for DLBCL currently on chemotherapy who presents to ED c/o sudden onset of fevers, chills, sore throat, etc.
Fever
Leukocytosis
Pharyngitis
- Admit for further evaluation and treatment.
- Empiric abx with Zosyn for now.
- Follow-up culture data.
- Supportive care including IVFs, antipyretics, pain control, etc.
- Oncology evaluation for additional recommendations.
- ? timing of WBC peak following Neulasta dose given one week ago?
DLBCL
- Currently followed at [facility] and s/p 1st cycle of R-EPOCH.
- Oncology evaluation as noted above.
- Follow-up with [facility] physicians after discharge.
- Next chemo scheduled for 10/24 per patient.
- Continue prophylactic fluconazole and acyclovir.
- Bactrim on hold while on Zosyn.
- ? Levofloxacin as well - also held.
Pulmonary Emboli
RUE DVT - Catheter Associated
- Stable. Pleuritic pain has resolved.
- Patient reports tongue swelling that started after beginning new Eliquis.
- Will hold further doses of this for now.
- Begin weight-based Lovenox for continued treatment of VTE.
- Heme / Onc eval for additional recommendations as noted above.
Normocytic Anemia
- Likely related to recent chemo.
- Mildly decreased from prior with no gross evidence of blood loss.
- Continue to follow H&H.
- Transfuse if needed for Hgb < 7 or symptoms.
DVT Prophylaxis: On therapeutic dosed Lovenox
Code Status: Full
[2023-10-17] MEDS: NEURONTIN 300 MG PO ×3 (08:54→21:43)
[2023-10-17] MEDS: VISBIOME 1 CAP PO (08:54)
[2023-10-17] MEDS: ZOVIRAX 400 MG PO ×2 (08:54→20:20)
[2023-10-17] MEDS: LOVENOX 60 MG SC ×2 (08:54→17:55)
[2023-10-17] MEDS: DIFLUCAN 400 MG PO (08:54)
--- NOTE | 2023-10-17 08:56 | W.PN.HOSP.TC ---
Addendum entered and electronically signed by Darryl Sullivan MD 10/17/23 12:27:
I personally performed a history and physical exam of the patient and discussed management with the resident. I reviewed the resident's note and agree with the documented findings and plan of care HPI/CC except change in documentation
CVS: S1-S2 normal
Chest: CTA B/L
Abdomen: Soft, NT / Bowel sounds present
Extremities: No edema, normal pulses
TOP WADDY: Non focal exam
Small ulcer on the chest wall,
38-year-old female with: Fever and chills. Patient is undergoing chemotherapy at [facility] for DLBCL . She has a chest mass and Pericardial effusion. She got Chemo earlier in September (18nth?) and also Neupogen on 10/09/23 per pt.
Patient was hospitalized From 10/11/2023 to 10/05/2023 subclavian vein thrombosis associated with a right-sided PICC line and pulmonary emboli and was started on Eliquis. She also felt her tongue has been slightly swollen for the past several days.
No nausea vomiting or diarrhea. No abdominal pain. No coughing. no dysuria
ECHO-10/11/2023-normal LV size, wall thickness. Ejection fraction 55 to 60%. Normal diastolic function. Normal RV size and function. Thickened mitral valve trace MR. No AI. Trace TR. Trivial pericardial effusion
# Fever
Sore throat present
Await blood cultures
Chest x-ray reviewed by me-no infiltrates,mass in the mediastinum
Urinalysis unremarkable
COVID serology negative
Elevated Lfts-Check abdominal ultrasound
Started on Zosyn
Possible white count secondary to Neulasta given a week ago
Oncology evaluation
Infectious disease consultation also requested
# Anemia likely secondary to malignancy check iron studies
Follow hemoglobin
Transfuse if needed
# Pulmonary embolism-recently diagnosed on Eliquis
Right upper extremity-subclavian DVT-catheter associated
Currently on Lovenox here
Await hematology oncology evaluation
# NHL-diffuse large B-cell lymphoma- followed at [facility]-Oncologist Dr. Onel Tucker
And received first cycle of R-EPOCH next one scheduled 11/04/2023.
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
She is also on prophylactic fluconazole ,acyclovir and Bactrim as OP
# Migraines-on as needed rizatriptan
# Neuropathy NOS
# DVT prophylaxis-on Lovenox now
# Full code
D/W
Original Note:
Today's Communication/Plan
-
Check Cxs
Abd US
IV abx
IVF
Assessment / Plan
Assessment / Plan
38y F with PMH significant for recently-diagnosed DLBCL currently on chemotherapy s/p neulasta on 10/08 who presents to ED c/o sudden onset of fever, generalized aches, sore throat.
Neutropenic fever:
unknown etiology
Leukocytosis with neutrophil predominance
fever, generalized aches, sore throat.
Neulasta received 8 days ago
- continue Zosyn
- continue IVF (LR), tylenol for fever control, pain management as needed
- appreciate Oncology and ID input
- Sputum cx pending
- Strep test
- Urinalysis normal
DLBCL
- Currently followed at [facility] and s/p 1st cycle of R-EPOCH. S/P Neulasta on 10/08
- Oncology evaluation as noted above.
- Follow-up with [facility] physicians after discharge.
- Next chemo scheduled for 10/24 per patient.
- Continue prophylactic fluconazole and acyclovir.
- Bactrim on hold while on Zosyn.
- Levofloxacin as well - also held.
Pulmonary Emboli
RUE DVT - Catheter Associated
- Stable. Pleuritic pain has resolved.
- Patient reports tongue swelling that started after beginning new Eliquis held
Normocytic Anemia
- Likely related to recent chemo.
- Mildly decreased from prior with no gross evidence of blood loss.
- Continue to follow H&H.
- Transfuse if needed for Hgb < 7 or symptoms.
Palpitations:
- Episodes of palpitations per patient
- Telemetry
Elevated transaminases:
- Mild elevation
- will get Abdominal ultrasound
Hx of migraines, neuropathy
- Gabapentin
DVT Prophylaxis: On therapeutic dosed Lovenox
Code Status: Full
Anticipated Discharge: > 48 hours
Subjective/Interval History
-
Date of Service: October 17, 2023
Pt complains of generalized aches, fever. Describes LUQ tenderness.
Objective Data
-
Labs:
Laboratory Results
10/17/23
01:10
WBC 39.3 H
Hgb 7.7 L
Hct 23.3 L
Plt Count 182 D
Sodium 138
Potassium 3.5
Chloride 101
Carbon Dioxide 26
BUN 14
Creatinine 0.7
Glucose 106 H
Calcium 9.1
Total Bilirubin 0.3
AST 37 H
ALT 38 H
Alkaline Phosphatase 143 H
Vital Signs:
Vital Signs
Temp Pulse Resp BP Pulse Ox
100.6 F H 116 16 124/90 97
10/17/23 07:00 10/17/23 07:00 10/17/23 07:00 10/17/23 07:00 10/17/23 07:00
Review of Systems
-
History Source: Patient
Constitutional: Reports Fever
Respiratory: Reports No Symptoms; Denies Cough or Trouble Breathing
Cardiac: Reports No Symptoms and Palpitations; Denies Chest Pain or Syncope
Abdomen/GI: Reports No Symptoms and Abdominal Pain (mild LUQ tenderness); Denies Nausea, Vomiting, Diarrhea or Constipated
Breast: Reports No Symptoms
Genitourinary: Reports No Symptoms; Denies Dysuria, Frequency, Flank Pain, Difficulty Voiding or Bleeding
Musculoskeletal: Reports Muscle Pain (generalized)
Skin: Reports No Symptoms
Neuro: Denies Dizzy or Headache
Psych: Reports Anxious
Physical Exam
-
General: Well Developed, Well Nourished, No Apparent Distress and Comfortable; Negative Respiratory Distress
HEENT: Normocephalic, Atraumatic, Moist Mucous Membranes, Anicteric and Good Dentition; Negative Oxygen
Respiratory: Clear to Auscultation and Non Labored Respirations; Negative Wheezes, Rales, Rhonchi, Crackles or Accessory Resp Muscle Use
Cardiac: Regular Rhythm, S1/S2 and Irregular Rhythm; Negative Murmur, Rub or Calf Tenderness
GI: Soft, Nontender, Nondistended, Normal Bowel Sounds and No Hepatosplenomegaly
Musculoskeletal: No Clubbing, No Cyanosis and No Edema
Skin: Warm, Dry and Other (previous port site, pericardiocentesis site, lung biopsy; wounds intact); Negative Rash or Ulcers
Neuro: Awake, Alert and Oriented
Psych: Calm
[2023-10-17] MEDS: LR 1000 IV ×2 (09:03→20:38)
[2023-10-17] MEDS: PEPCID 20 MG PO (09:04)
[2023-10-17] MEDS: ZOSYN 50 IV ×3 (09:04→21:43)
[2023-10-17 10:45] LABS: HCG, Serum Qualitative Screen Negative
--- NOTE | 2023-10-17 11:54 | CON.ONC ---
Impression
Impression
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
Fever, unclear etiology
Plan
Plan
Agree with current plans. Empiric antibiotics. Await culture results.
Patient History
History of Present Illness
Consult from Dr. Forte regarding lymphoma
This 38-year-old woman was admitted with fever. She was recently diagnosed with diffuse large B-cell lymphoma with a very large mediastinal mass and pericardial effusion. She was treated at the [facility] with R�EPSIL, with
Neulasta given at the conclusion. She was admitted here shortly thereafter with a subclavian vein thrombosis associated with a right-sided PICC line. There were couple of very small pulmonary emboli. She remains on Eliquis. The day of admission
she developed shaking chills and a fever as high as 102 degrees. Cultures remain negative. Her white count is actually quite elevated at 39,000, at least in part due to the Neulasta. She also had a sore throat which has resolved. She has a
2-year-old at home who had symptoms of an upper respiratory infection. She has had no diarrhea. She is feeling reasonably well this morning.
Patient Medication
�Medication �Instructions �Recorded �Confirmed �Last Taken �Type
Lactobac no.2-Bifidobac no.1-S. 1 cap PO DAILY Gastrointestinal 10/11/23 10/17/23 Unknown History
thermo 112.5 billion cell capsule Issue
(Visbiome)
acyclovir 400 mg tablet 400 mg PO BID prophylaxis 10/11/23 10/17/23 Unknown History
fluconazole 200 mg tablet 400 mg PO DAILY prophylaxis 10/11/23 10/17/23 Unknown History
gabapentin 300 mg capsule 300 mg PO TID Pain 10/11/23 10/17/23 10/11/23 History
levofloxacin 500 mg tablet 500 mg PO DAILY Infection 10/11/23 10/17/23 Unknown History
loratadine 10 mg tablet (Claritin) 10 mg PO DAILYPRN PRN the day of 10/11/23 10/17/23 Unknown History
and 3 day after injection
ondansetron HCl 8 mg tablet 8 mg PO [id number] PRN nausea 10/11/23 10/17/23 Unknown History
rizatriptan 10 mg disintegrating 0 mg PO .COMPLEX headache 10/11/23 10/17/23 Unknown History
tablet
sulfamethoxazole 800 1 tab PO MOWEFR prophylaxis 10/11/23 10/17/23 10/09/23 History
mg-trimethoprim 160 mg tablet
(Bactrim DS)
therapeutic multivitamin 1 tab PO DAILY Supplement 10/11/23 10/17/23 Unknown History
apixaban 5 mg tablet (Eliquis) 10 mg (2 x 5 mg) PO BID #90 tabs 10/13/23 10/17/23 Unknown Rx
oxycodone 5 mg tablet 5 mg PO TIDPRN PRN severe pains 10/13/23 10/17/23 Unknown Rx
#30 tabs
Active Medications
Generic Name Dose Route Start Last Admin
Trade Name Freq PRN Reason Stop Dose Admin
Acetaminophen 650 mg 10/17/23 06:05
Acetaminophen 325 Mg Tablet PO 11/14/23 06:04
Q4HPRN PRN
Mild Pain / Temp > 101
Acyclovir Sodium 400 mg 10/17/23 08:00 10/17/23 08:54
Acyclovir Sodium 200 Mg Capsule PO 10/27/23 07:59 400 mg
BID PATRICK Administration
Enoxaparin Sodium 60 mg 10/17/23 06:00 10/17/23 08:54
Enoxaparin Sodium 60 Mg/0.6 Ml Syringe SC 11/14/23 05:59 60 mg
Q12H PATRICK Administration
Famotidine 20 mg 10/17/23 08:00 10/17/23 09:04
Famotidine 20 Mg Tablet PO 11/14/23 07:59 20 mg
BID PATRICK Administration
Fluconazole 400 mg 10/17/23 08:00 10/17/23 08:54
Fluconazole 200 Mg Tablet PO 10/27/23 07:59 400 mg
DAILY PATRICK Administration
Gabapentin 300 mg 10/17/23 08:00 10/17/23 08:54
Gabapentin 300 Mg Capsule PO 11/14/23 07:59 300 mg
TID PATRICK Administration
Piperacillin Sod/Tazobactam Sod 3.375 gram in 50 mls @ 100 mls/hr 10/17/23 10:00 10/17/23 09:04
Zosyn IV 50 mls
Q6H PATRICK Administration
Lactated Ringer's 1,000 mls @ 100 mls/hr 10/17/23 06:05 10/17/23 09:03
Lr IV 1,000 mls
.Q10H PATRICK Administration
Lactobacillus/Bifidobacterium 1 cap 10/17/23 08:00 10/17/23 08:54
Lactobac/Bifidobac (Visbiome) PO 11/14/23 07:59 1 cap
DAILY PATRICK Administration
Oxycodone HCl 5 mg 10/17/23 06:05
Oxycodone 5 Mg Regular Release Tablet PO 10/31/23 06:04
TIDPRN PRN
severe pains
Sodium Chloride 0 flush 10/17/23 07:00
Sodium Chloride 0.9% (Flush) Syringe IV 11/14/23 06:59
PER PROTOCOL PATRICK
Trimethoprim/Sulfamethoxazole 1 tablet 10/18/23 08:00
Sulfamethoxazole (800 Mg)/Trimethoprim (160 Mg) Tablet PO
MoWeFr@0800 PATRICK
Review of Systems
-
All Other Systems: Reviewed and Negative
Physical Exam
-
Physical examination shows the patient to be in no acute distress.
HEENT exam is unremarkable.
There are no palpable nodes.
Chest is clear.
The heart is regular with no murmur or gallop.
The abdomen is soft and nontender with no organomegaly or masses.
Extremities are unremarkable.
Neurologic is grossly intact.
Labs
Lab Results
WBC 39.3 10^3/uL (4.8-10.8) H 10/17/23 01:10
RBC 2.85 10^6/uL (4.20-5.40) L 10/17/23 01:10
Hgb 7.7 g/dL (12.0-16.0) L 10/17/23 01:10
Hct 23.3 % (37.0-47.0) L 10/17/23 01:10
MCV 81.8 fL (81.0-99.0) 10/17/23 01:10
MCH 27.0 pg (27.0-31.0) 10/17/23 01:10
MCHC 33.0 g/dL (33.0-37.0) 10/17/23 01:10
RDW 16.7 % (11.5-14.5) H 10/17/23 01:10
Plt Count 182 10^3/uL (130-400) D 10/17/23 01:10
MPV 9.8 fL (7.4-10.4) 10/17/23 01:10
Creatinine 0.7 mg/dL (0.6-1.0) 10/17/23 01:10
Vital Signs
Vital Signs
Temp Pulse Resp BP Pulse Ox
100.6 F H 116 16 124/90 97
10/17/23 07:00 10/17/23 07:00 10/17/23 07:00 10/17/23 07:00 10/17/23 07:00
--- NOTE | 2023-10-17 12:48 | CM ---
Met with pt at bedside
Currently receiving chemo and cancer treatment with [facility]
Lives with her and 2 children - 5yo girl, 2yo boy
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
DME - none
HH - Current with [facility]
SNF - denies past hx
Has ride at d/c
PCP - Dr Anne Serrano
Pharm - [facility]
Reports potential issues with transportation to appointments - given [email or web address] website for resources
CM will follow for d/c needs
Plan - home with [facility]
--- NOTE | 2023-10-17 13:47 | PTCARENOTE ---
Patient tearful throughout the day. Patient is worried she has Leukemia and a fungus infection in her blood. Patient has a fungal toenail on her left foot. RN did not see it, because toenail was painted. Emotional support given. RN instructed
patient that blood cultures will identify if there is fungus in her blood.
--- NOTE | 2023-10-17 13:55 | CON.ID ---
Consultation
-
Date/Time Consultation Requested: October 17, 2023 0906
Date/Time Consultation Performed: October 17, 2023 1400
Requesting Provider: Dr. Darryl Sullivan
Performing Provider: Dr. Eliana Bunch
Reason for Consultation: Fever
Chief Complaint / Past History
Chief Complaint
Fever, sorethroat
History of Present Illness
38-year-old female with recent diagnosis of diffuse large B-cell lymphoma early September 2023 with large mediastinal mass and malignant pericardial effusion status post pericardiocentesis at [facility], completed first cycle of R�EPOCH with Neulasta support on
October 08. She was recently hospitalized at [facility] from October 10 to October 12 with right upper extremity DVT around the PICC site and PE. PICC line was removed. She was discharged on Eliquis. On October 14, she had low-grade fever.
Yesterday morning she was well until around 9 PM when she started to have severe sore throat, chills, body aches. she took her temperature and it was over 101. She came back to the ER last night. She was febrile 102.2. Rapid strep screen
negative. COVID-19 and influenza negative. Chest x-ray no pneumonia. She was started on Zosyn. Patient denies headache, rhinorrhea or sinus congestion. Sore throat better today. No history of mono. No nausea, vomiting, abdominal pain or
diarrhea. No dysuria or flank pain. No rash. Her 2-year-old son with runny nose and cough. She had family members over the weekend, she did not wear a mask. She has been compliant with the prophylactic fluconazole, acyclovir, and Bactrim. She
reports tongue swelling since being on Eliquis. Eliquis dc'd.
Past History
Additional Past Medical History:
Diffuse Large B-cell lymphoma, massive mediastinal mass, malignant pericardial effusion diagnosed September 2023 status post first round chemotherapy (R-EPOCH) and Neulasta October 08 ([facility])
Additional Past Surgical History:
Allergy History:
No Known Allergies Allergy (Verified 10/16/23 23:41)
Medications Reviewed: Yes
Current Antibiotics:
Zosyn
Prophylactic acyclovir 400 mg daily
Prophylactic fluconazole 400 mg daily
Prophylactic levofloxacin 500 mg daily
Prophylactic Bactrim double strength Fridays
Social History
Tobacco: Non-Smoker
Alcohol: Occasional
Drug: None
Personal:
Family History
Family History: Not Pertinent
Review of Systems
Review of Systems
General: Fever, Chills and Change in Appetite
HEENT: Pharyngitis; Negative Stiff Neck, Sinus Problems or Headache
Cardiovascular: Negative Chest Pain or Edema
Respiratory: Negative Dyspnea or Cough
Gasteroenterology: Other (no diarrhea); Negative Nausea or Vomiting
Genital / Urological: Negative Dysuria or Flank Pain
Endocrine: Weakness
Musculoskeletal: Negative Arthralgias
Skin / Hair / Nails: Negative Rash
Neurological: Negative Headache or Dizziness
All systems: All other systems were reviewed and were negative
Vital Signs
Temp Pulse Resp BP Pulse Ox
99.5 F 105 16 124/79 98
10/17/23 11:00 10/17/23 11:00 10/17/23 11:00 10/17/23 11:00 10/17/23 11:00
Selected Entries
10/16/23
23:50 10/17/23
07:00
Temp 102.2 F H 100.6 F H
Physical Exam
Physical Exam
Constitutional: No Acute Distress and Comfortable
Eyes: No Conjunctival Hemorrhage and Sclera Anicteric
Pharynx: Benign and Other (no exudate); Negative Erythema
Oral: No Thrush and Other (Tongue mild edema)
Cardiovascular: S1/S2 and Other (tachycardic)
Pulmonary: Clear
Gastrointestinal: Soft, Non Tender, Non Distended and Normal Bowel Sounds
Genito-Urinary: Negative CVA Tenderness
Extremities: Negative Edema
Musculoskeletal: Negative Joint Swelling, Joint Effusion or Spinal Tenderness
Skin: Negative Rash or Jaundice
Neurological: AO x 3
Lab / Diagnostic Study Results
10/17/23 01:10
10/17/23 01:10
Total Counted 100 10/17/23 01:10
Abs Neuts (Manual) 27.5 10^3/uL (1.4-6.5) H 10/17/23 01:10
Segmented Neutrophils 62 % (42-75) 10/17/23 01:10
Band Neutrophils 8 % (0-3) H 10/17/23 01:10
Lymphocytes (Manual) 2 % (20-51) L 10/17/23 01:10
Lactic Acid 0.8 mmol/L (0.7-2.0) 10/17/23 01:10
Microbiology Results
Micro:
10/17/23 09:26 Streptococcus Screen (ROLDAN) - Pending
Throat/Pharynx Streptococcus Rapid Screen - Final
Rapid Strep Screen (Group A) Negative
10/17/23 01:10 Blood Culture - Pending
Blood/Venous
10/17/23 02:10 Influenza Types A & B (SANTOSH) - Final
Nasal Swab Negative for Influenza A & B, NAAT
Negative results must be combined with clinical observations
and patient history.
Nucleic Acid Amplification test (NAAT)performed on the
[employer] platform.
10/17/23 01:10 Blood Culture - Pending
Blood/Venous
10/17/23 CXR: No significant change in known mediastinal mass. No findings to suggest pneumonia.
10/11/[address]: There is a small eccentric pulmonary embolism in the segmental and subsegmental branches of the posterior segment of the right lower lobe. There is probably a second small embolus in the lateral segmental and subsegmental branches
of the right lower lobe. Large anterior mediastinal mass which appears slightly smaller than on examination of September 25, 2023, which would be suggestive of interval treatment. On review of [facility], the patient did receive first round of chemotherapy
last week. Interval resolution of right pleural effusion. Small left pleural effusion which appears unchanged. Significant interval improvement in pericardial effusion. In [facility], reported history of pericardiocentesis. Small remaining anterior
pericardial effusion is present.
Assessment / Plan
# Fever, severe sore throat, myalgias - acute onset 9pm 10/16/23
# Recent PE, RUE PICC thrombosis (10/13/23), picc dc'd
# Recent dx Diffuse large B cell lymphoma, mediastinal mass, malignant pericardial effusion, s/p 1st cycle R-EPOCH with neulasta 10/09/23
# Acute increase wbc 2.3 -> 39 (in 4 days)
- 10/16 COVID19 and Influenza negative
-CXR no PNA
-UA clean
- bcx pending
-Suspect viral illness. (Son with URI)
Rapid strep screen negative
Nasal swab for Respiratory viral panel PCR.
-Check monospot
-Repeat COVID19 antigen test in 48 hrs (7/4 am)
- Can continue Zosyn for now pending culture data.
- Continue prophylactic acylcovir and fluconazole
- Resume PJP prophylaxis Bactrim DS MWF. (Zosyn is not effective against PJP)
-Hold prophylactic levofloxacin while on Zosyn.
[2023-10-17 17:53] LABS: Monotest Negative (Negative)
[2023-10-18 02:22] VITALS: BMI 20.8
[2023-10-18 02:51] VITALS: BP 118/78
[2023-10-18] MEDS: ZOSYN 50 IV ×4 (03:44→20:59)
[2023-10-18] MEDS: LOVENOX 60 MG SC (06:06)
[2023-10-18 06:16] LABS: Hematocrit 26.3 % (37.0-47.0); Hemoglobin 8.3 g/dL (12.0-16.0); Mean Corp Hgb Conc. 31.6 g/dL (33.0-37.0); Mean Corpuscular Hgb 26.8 pg (27.0-31.0); Mean Corpuscular Volume 84.8 fL (81.0-99.0); Mean Platelet Volume 9.8 fL (7.4-10.4); Platelet Count 152 10^3/uL (130-400); Red Cell Dist. Width 17.4 % (11.5-14.5); White Blood Cell Count 25.6 10^3/uL (4.8-10.8)
[2023-10-18 06:43] LABS: ALT (SGPT) 31 U/L (0-35); AST (SGOT) 30 U/L (14-36); Albumin 3.4 g/dl (3.5-5.0); Alkaline Phosphatase 142 U/L (38-126); Blood Urea Nitrogen 10 mg/dl (7-17); Calcium 8.8 mg/dl (8.4-10.2); Carbon Dioxide 26 mmol/L (22-30); Chloride 106 mmol/L (98-107); Direct Bilirubin 0.2 mg/dl (0.0-0.4); Estimated Creatinine Clearance 100 ml/min; Glucose 88 mg/dl (70-99); Potassium 3.9 mmol/L (3.5-5.1); Sodium 139 mmol/L (135-145); Total Bilirubin 0.3 mg/dl (0.2-1.3); Total Protein 5.6 g/dl (6.3-8.2); eGFR > 60.00
[2023-10-18 07:00] VITALS: BP 120/80
--- NOTE | 2023-10-18 07:20 | W.PN.HOSP.TC ---
Addendum entered and electronically signed by Darryl Sullivan MD 10/18/23 11:55:
Tongue does not look swollen to me (Pt feels so)
CVS: S1-S2 normal
Chest: CTA B/L
Abdomen: Soft, NT / Bowel sounds present
Extremities: No edema, normal pulses
[employer]TER: Non focal exam
Small ulcer on the chest wall, No discharge
38-year-old female with: Fever and chills. Patient is undergoing chemotherapy at [facility] for DLBCL . She has a chest mass and Pericardial effusion. She got Chemo earlier in September (18nth?) and also Neupogen on 10/09/23 per pt.
Patient was hospitalized From 10/11/2023 to 10/05/2023 subclavian vein thrombosis associated with a right-sided PICC line and pulmonary emboli and was started on Eliquis. She also felt her tongue has been slightly swollen for the past several days.
No nausea vomiting or diarrhea. No abdominal pain. No coughing. no dysuria
ECHO-10/11/2023-normal LV size, wall thickness. Ejection fraction 55 to 60%. Normal diastolic function. Normal RV size and function. Thickened mitral valve trace MR. No AI. Trace TR. Trivial pericardial effusion
# Fever
Sore throat present-son was sick with symptoms like this
blood cultures neg
Chest x-ray reviewed by me-no infiltrates,mass in the mediastinum
Urinalysis unremarkable
COVID serology negative
Elevated Lfts-ultrasound of the abdomen without any source of infection. Improving
Likely viral
Started on Zosyn
Possible white count secondary to Neulasta given a week ago-Improving.
Oncology evaluation
Infectious disease consultation also requested
? Stop Zosyn and watch today?
# Anemia likely secondary to malignancy check iron studies
Follow hemoglobin-Stable
Transfuse if needed
# Pulmonary embolism-recently diagnosed on Eliquis
Right upper extremity-subclavian DVT-catheter associated
Currently on Lovenox here
Discussed with Dr. Conte yesterday who recommended to restart Eliquis.
Had a discussion with the patient today and she does not want to restart Eliquis as she feels that caused her tongue swelling.
Agreeable to try Xarelto
# NHL-diffuse large B-cell lymphoma- followed at [facility]-Oncologist Dr. Onel Tucker
And received first cycle of R-EPOCH next one scheduled 11/04/2023.
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
She is also on prophylactic fluconazole ,acyclovir and Bactrim as OP (Ordered here)
# Migraines-on as needed rizatriptan
# Neuropathy NOS
# DVT prophylaxis-on Lovenox now
# Full code
Original Note:
Today's Communication/Plan
-
Continue abx
Assessment / Plan
Assessment / Plan
38y F with PMH significant for recently-diagnosed DLBCL currently on chemotherapy s/p neulasta on 10/08 who presents to ED c/o sudden onset of fever, generalized aches, sore throat.
Fever:
Generalized aches, sore throat. Leukocytosis on presentation. Uncertain etiology. Toddler son recently with cold
Neulasta received 10/08
afebrile in last 24 hrs without antipyretics
- Blood cx no growth in 24 hours
- respiratory Viral panel negative, Covid negative x 2, CXR no change from prior
- Strep test negative strep A
- Urinalysis normal
- Abdominal US 10/16: No findings to confirm cholelithiasis, gallbladder wall thickening or biliary tract dilatation. Questionable minimal gallbladder sludge. Negative sonographic Pastor's sign. Mild hepatomegaly (versus incidental Cielo's lobe)
and borderline splenomegaly.
- continue Zosyn for broad spectrum coverage
- continue IVF (LR), tylenol for fever control, pain management as needed
- appreciate Oncology and ID input
DLBCL
- Currently followed at [place] and s/p 1st cycle of R-EPOCH. S/P Neulasta on 10/08
- Oncology evaluation as noted above.
- Follow-up with [facility] physicians after discharge.
- Next chemo scheduled for 10/24 per patient.
- Continue prophylactic fluconazole, bactrim DS and acyclovir.
- Currently on Zosyn, levofloxacin held
- Levofloxacin as well - also held
Pulmonary Emboli
RUE DVT - Catheter Associated
- Stable. Pleuritic pain has resolved.
- Patient reports tongue swelling that started after beginning new Eliquis held. Will convert to therapeutic dose Xarelto upon discharge
Normocytic Anemia
- Likely related to recent chemo.
- Mildly decreased from prior with no gross evidence of blood loss.
- Continue to follow H&H. Await iron panel and B12
- Transfuse if needed for Hgb < 7 or symptoms.
Palpitations:
- Episodes of palpitations per patient
- Resolved.
- Will monitor
Elevated transaminases:
- Mild elevation. No LUQ tenderness or jaundce
- Abd ultrasound: No findings to confirm cholelithiasis, gallbladder wall thickening or biliary tract dilatation. Questionable minimal gallbladder sludge.
- Liver transaminases AST, ALT resolved.
-Repeat in AM
Hx of migraines, neuropathy
- Gabapentin
DVT Prophylaxis: On therapeutic dosed Lovenox
Code Status: Full
Anticipated Discharge: 24 - 48 hours
Subjective/Interval History
-
Date of Service: October 18, 2023
Sweats overnight, mild subjective fever.
Objective Data
-
Labs:
Laboratory Results
10/18/23
05:39
WBC 25.6 H
Hgb 8.3 L
Hct 26.3 L
Plt Count 152
Sodium 139
Potassium 3.9
Chloride 106
Carbon Dioxide 26
BUN 10
Creatinine 0.7
Glucose 88
Calcium 8.8
Total Bilirubin 0.3
AST 30
ALT 31
Alkaline Phosphatase 142 H
Vital Signs:
Vital Signs
Temp Pulse Resp BP Pulse Ox
98.5 F 87 16 118/78 97
10/18/23 02:51 10/18/23 02:51 10/18/23 02:51 10/18/23 02:51 10/18/23 02:51
I&O
10/17/23 10/18/23 10/19/23
06:59 06:59 06:59
Intake Total 3649
Balance 3649
Review of Systems
-
History Source: Patient
Constitutional: Reports Fever (feels warm) and Night Sweats; Denies No Appetite or Chills
Respiratory: Reports No Symptoms
Cardiac: Denies Chest Pain, Palpitations, Syncope or Orthopnea
Abdomen/GI: Denies Abdominal Pain, Nausea, Vomiting or Diarrhea
Genitourinary: Denies Dysuria or Difficulty Voiding
Musculoskeletal: Reports Muscle Pain and Other (left chest wall pain with inspiration. No neck pain or stiffness); Denies Joint Pain, Joint Swelling or Edema
Neuro: Denies Dizzy or Headache
Physical Exam
-
General: Well Developed, No Apparent Distress, Comfortable and Conversant; Negative Fever
HEENT: Normocephalic, Atraumatic, Moist Mucous Membranes and Anicteric
Respiratory: Clear to Auscultation
Cardiac: Regular Rhythm and S1/S2; Negative Murmur, Rub, Calf Tenderness or Sheryl's Sign
GI: Soft, Nontender, Nondistended and Normal Bowel Sounds
Genito-urinary: No Costovertebral Tender and Other (no suprapubic tenderness)
Musculoskeletal: No Clubbing, No Cyanosis and No Edema
Skin: Warm and Dry; Negative Rash, Ulcers, Lesions or Jaundice
Neuro: Awake, Alert and Oriented
Psych: Calm
[2023-10-18] MEDS: LR 1000 IV (08:38)
[2023-10-18] MEDS: DIFLUCAN 400 MG PO (08:40)
[2023-10-18] MEDS: VISBIOME 1 CAP PO (08:40)
[2023-10-18] MEDS: BACTRIM DS 800 MG/160 MG 1 TABLET PO (08:40)
[2023-10-18] MEDS: NEURONTIN 300 MG PO ×3 (08:40→20:58)
[2023-10-18] MEDS: ZOVIRAX 400 MG PO ×2 (08:40→20:58)
[2023-10-18 11:35] LABS: Iron 71 ug/dl (37-170)
[2023-10-18 11:45] LABS: Percent Saturation 25 % (20-50); Total Iron Binding Capacity 274 ug/dl (265-497)
[2023-10-18 12:31] LABS: Vitamin B12 > 1000 pg/ml (239-931)
--- NOTE | 2023-10-18 13:28 | W.PN.ONC ---
Today's Communication / Plan
-
She has been afebrile for greater than 24 hours. Cultures remain negative. No clear evidence of infection. Her white count is trending down. I have no objections to discharge, will await ID input.
Impression
Impression
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
Fever, unclear etiology
Plan
Plan
Agree with current plans. Empiric antibiotics. Await culture results.
Subjective/Objective
Subjective/Objective
She is feeling reasonably well. She had some minimal pleuritic discomfort this morning. Physical examination is unchanged.
Vital Signs:
Vital Signs
Temp Pulse Resp BP Pulse Ox
98.4 F 96 16 120/80 97
10/18/23 07:00 10/18/23 07:00 10/18/23 07:00 10/18/23 07:00 10/18/23 07:00
Lab Results:
Laboratory Data
WBC 25.6 10^3/uL (4.8-10.8) H 10/18/23 05:39
Hgb 8.3 g/dL (12.0-16.0) L 10/18/23 05:39
Plt Count 152 10^3/uL (130-400) 10/18/23 05:39
eGFR > 60.00 10/18/23 05:39
[2023-10-18] MEDS: LR IV (14:46)
[2023-10-18 15:00] VITALS: BP 125/84
--- NOTE | 2023-10-18 15:37 | CM ---
Case management following for d/c planning
Chart reviewed. Spoke with pt
Requested to do med pricing for Xarelto
Pts home pharm unable to provide pricing without Rx
Called pts insurance - unable to provide medication pricing per automated system
Pt given coupon/pamphlet for Xarelto - discussed activation
[facility] - clarified - related to chemo infusion
Pt will have ride at d/c
Plan - home no needs
--- NOTE | 2023-10-18 16:28 | W.PN.ID1 ---
Date of Service
Date of Service: October 18, 2023
Today's Communication
- Can continue Zosyn for now pending culture data - if no further fevers and covid ag negative tomorrow then can discharge back on patients noraml prophylactic medications
Assessment / Plan
# Fever, severe sore throat, myalgias - acute onset 9pm 10/16/23
# Recent PE, RUE PICC thrombosis (10/13/23), picc dc'd
# Recent dx Diffuse large B cell lymphoma, mediastinal mass, malignant pericardial effusion, s/p 1st cycle R-EPOCH with neulasta 10/09/23
# Acute increase wbc 2.3 -> 39 (in 4 days)
- 10/16 COVID19 and Influenza negative
- CXR no PNA
- UA clean
- bcx's x2 no growth at 24 hours
- Suspect viral illness. (Son with URI)
- Rapid strep screen negative
- Nasal swab for Respiratory viral panel PCR - also negative
- monospot - negative
- Repeat COVID19 antigen test in 48 hrs (7/4 am)
- Can continue Zosyn for now pending culture data - if no further fevers and covid ag negative tomorrow then can discharge back on patients noraml prophylactic medications
- Continue prophylactic acylcovir and fluconazole
- Resume PJP prophylaxis Bactrim DS MWF. (Zosyn is not effective against PJP)
- Hold prophylactic levofloxacin while on Zosyn.
Chief Complaint
-: Fever and Other (Immunosuppression)
Subjective / Review of Systems
afebrile x 24 hrs
bp stable
wbc improved to 25
hgb 8.3
plt 152
cr 0.2
mild transaminitis improving
monoscreen negative
resp viral panel negative
rapid strep screen neg for GAS, strep culture in progress
Vital Signs / Physical Exam
Vital Signs
Vital Signs
Temp Pulse Resp BP Pulse Ox
98.4 F 96 16 120/80 97
10/18/23 07:00 10/18/23 07:00 10/18/23 07:00 10/18/23 07:00 10/18/23 07:00
Physical Exam
Constitutional: No Acute Distress
Cardiovascular: Regular Rate and S1/S2; Negative Murmur or Rub
Pulmonary: Clear and Symmetric; Negative Wheezes or Rales
Gastrointestinal: Soft, Non Tender, Non Distended and Normal Bowel Sounds
Skin: Warm and Dry; Negative Rash or Jaundice
Objective Data
Lab Data
Lab Results
10/18/23 05:39
10/18/23 05:39
Estimated Creat Clear 100 ml/min 10/18/23 05:39
Lactic Acid 0.8 mmol/L (0.7-2.0) 10/17/23 01:10
Total Bilirubin 0.3 mg/dl (0.2-1.3) 10/18/23 05:39
AST 30 U/L (14-36) 10/18/23 05:39
ALT 31 U/L (0-35) 10/18/23 05:39
Alkaline Phosphatase 142 U/L (38-126) H 10/18/23 05:39
Most recent labs reviewed.
Micro Results:
10/17/23 09:26 Streptococcus Screen (ROLDAN) - Preliminary
Throat/Pharynx Culture in Progress
Streptococcus Rapid Screen - Final
Rapid Strep Screen (Group A) Negative
10/17/23 01:10 Blood Culture - Preliminary
Blood/Venous No Growth in 24 hours- Final report to follow
10/17/23 01:10 Blood Culture - Preliminary
Blood/Venous No Growth in 24 hours- Final report to follow
10/17/23 16:16 Influenza Type A (PCR) - Final
Nasalpharynx Not Detected
Influenza Type A (H1) (PCR) - Final
Not Detected
Influenza Type A (H3) (PCR) - Final
Not Detected
Influenza Type B (PCR) - Final
Not Detected
Resp Syncytial Virus Type A (PCR) - Final
Not Detected
Resp Syncytial Virus Type B (PCR) - Final
Not Detected
Adenovirus DNA (PCR) - Final
Not Detected
Human Metapneumovirus (PCR) - Final
Not Detected
Parainfluenza Virus Type 1 (PCR) - Final
Not Detected
Parainfluenza Virus Type 2 (PCR) - Final
Not Detected
Parainfluenza Virus Type 3 (PCR) - Final
Not Detected
Parainfluenza Virus Type 4 - Final
Not Detected
Rhinovirus (PCR) - Final
Not Detected
10/17/23 02:10 Influenza Types A & B (SANTOSH) - Final
Nasal Swab Negative for Influenza A & B, NAAT
Negative results must be combined with clinical observations
and patient history.
Nucleic Acid Amplification test (NAAT)performed on the
[employer] platform.
10/17/23 CXR: No significant change in known mediastinal mass. No findings to suggest pneumonia.
10/11/[address]: There is a small eccentric pulmonary embolism in the segmental and subsegmental branches of the posterior segment of the right lower lobe. There is probably a second small embolus in the lateral segmental and subsegmental branches
of the right lower lobe. Large anterior mediastinal mass which appears slightly smaller than on examination of September 25, 2023, which would be suggestive of interval treatment. On review of [facility], the patient did receive first round of chemotherapy
last week. Interval resolution of right pleural effusion. Small left pleural effusion which appears unchanged. Significant interval improvement in pericardial effusion. In [facility], reported history of pericardiocentesis. Small remaining anterior
pericardial effusion is present.
[2023-10-18 19:52] VITALS: BP 130/88
[2023-10-18] MEDS: TYLENOL 650 MG PO (20:57)
[2023-10-18] MEDS: XARELTO 15 MG PO (20:57)
[2023-10-18 23:24] VITALS: BP 111/69
[2023-10-19 02:48] VITALS: BP 106/88
[2023-10-19] MEDS: ZOSYN 50 IV ×2 (03:56→09:06)
[2023-10-19 04:36] LABS: COVID-19 Antigen Negative (Negative)
[2023-10-19 05:58] LABS: Hematocrit 26.9 % (37.0-47.0); Hemoglobin 8.8 g/dL (12.0-16.0); Mean Corp Hgb Conc. 32.7 g/dL (33.0-37.0); Mean Corpuscular Volume 82.5 fL (81.0-99.0); Mean Platelet Volume 10.3 fL (7.4-10.4); Platelet Count 160 10^3/uL (130-400); Red Blood Cell Count 3.26 10^6/uL (4.20-5.40); Red Cell Dist. Width 17.4 % (11.5-14.5); White Blood Cell Count 21.1 10^3/uL (4.8-10.8)
[2023-10-19 06:06] LABS: Blood Urea Nitrogen 11 mg/dl (7-17); Calcium 9.1 mg/dl (8.4-10.2); Carbon Dioxide 26 mmol/L (22-30); Chloride 105 mmol/L (98-107); Estimated Creatinine Clearance 87 ml/min; Glucose 89 mg/dl (70-99); Potassium 4.4 mmol/L (3.5-5.1); Sodium 139 mmol/L (135-145); eGFR > 60.00
[2023-10-19 07:00] VITALS: BP 125/76
[2023-10-19] MEDS: ZOVIRAX 400 MG PO (08:00)
[2023-10-19] MEDS: DIFLUCAN 400 MG PO (08:01)
[2023-10-19] MEDS: NEURONTIN 300 MG PO ×2 (08:01→16:26)
[2023-10-19] MEDS: VISBIOME 1 CAP PO (08:01)
[2023-10-19] MEDS: XARELTO 15 MG PO (08:02)
[2023-10-19] MEDS: BENADRYL 25 MG PO (08:02)
[2023-10-19 11:00] VITALS: BP 128/87
--- NOTE | 2023-10-19 11:17 | W.PN.HOSP.TC ---
Addendum entered and electronically signed by Darryl Sullivan MD 10/19/23 15:28:
Discussed with infectious disease. Okay for discharge to continue previous medicines acyclovir, fluconazole, Levaquin, and Bactrim.
Patient only had 1 more bowel movement so far.
I had a detailed discussion with the patient regarding stopping Eliquis, Xarelto doses.
She has an appointment with Андрей tomorrow.
I asked if I should communicate with anybody else in her family she declined saying that she has been updating them.
Total discharge time 37 min
Original Note:
Today's Communication/Plan
-
Await ID eval
Assessment / Plan
Assessment / Plan
38-year-old female with: Fever and chills. Patient is undergoing chemotherapy at [facility] for DLBCL . She has a chest mass and Pericardial effusion. She got Chemo earlier in September (18nth?) and also Neupogen on 10/09/23 per pt.
Patient was hospitalized From 10/11/2023 to 10/05/2023 subclavian vein thrombosis associated with a right-sided PICC line and pulmonary emboli and was started on Eliquis. She also felt her tongue has been slightly swollen for the past several days.
No nausea vomiting or diarrhea. No abdominal pain. No coughing. no dysuria
ECHO-10/11/2023-normal LV size, wall thickness. Ejection fraction 55 to 60%. Normal diastolic function. Normal RV size and function. Thickened mitral valve trace MR. No AI. Trace TR. Trivial pericardial effusion
Oral thrush
CVS: S1-S2 normal
Chest: CTA B/L
Abdomen: Soft, NT / Bowel sounds present
Extremities: No edema
# Fever
Sore throat present-son was sick with symptoms like this
blood cultures neg
Chest x-ray reviewed by me-no infiltrates,mass in the mediastinum
Urinalysis unremarkable
COVID serology negative
Elevated Lfts-ultrasound of the abdomen without any source of infection. Improving
Likely viral
Resp viral panel neg
On Zosyn- ID following
Possible white count secondary to Neulasta given a week ago-Improving.
#Thrush- She is already on Fluconazole. Ill order topical Nystatin also.
#Diarrhea- C diff negative
# Anemia likely secondary to malignancy
Follow hemoglobin-Stable
Transfuse if needed
# Pulmonary embolism-recently diagnosed on Eliquis
Right upper extremity-subclavian DVT-catheter associated
Had a discussion with the patient today and she does not want to restart Eliquis as she feels that caused her tongue swelling.
Continue Xarelto
# NHL-diffuse large B-cell lymphoma- followed at [facility]-Oncologist Dr. Onel Tucker
And received first cycle of R-EPOCH next one scheduled 11/04/2023.
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
She is also on prophylactic fluconazole ,acyclovir and Bactrim as OP (Ordered here)
# Migraines-on as needed rizatriptan
# Neuropathy NOS
# DVT prophylaxis-on Xarelto
# Full code
Anticipated Discharge: Within 24 hours
Subjective/Interval History
-
Date of Service: October 19, 2023
Objective Data
-
Labs:
Laboratory Results
10/19/23
05:20
WBC 21.1 H
Hgb 8.8 L
Hct 26.9 L
Plt Count 160
Sodium 139
Potassium 4.4
Chloride 105
Carbon Dioxide 26
BUN 11
Creatinine 0.8
Glucose 89
Calcium 9.1
Vital Signs:
Vital Signs
Temp Pulse Resp BP Pulse Ox
99.4 F 106 16 125/76 97
10/19/23 07:00 10/19/23 07:00 10/19/23 07:00 10/19/23 07:00 10/19/23 07:00
I&O
10/18/23 10/19/23 10/20/23
06:59 06:59 06:59
Intake Total 3650 / 3650 2200 / 2200
Balance 3650 / 3650 2200 / 2200
[2023-10-19] MEDS: MYCOSTATIN ORAL SUSPENSION 5 ML PO ×2 (12:30→16:26)
--- NOTE | 2023-10-19 14:47 | W.PN.ID1 ---
Date of Service
Date of Service: October 19, 2023
Today's Communication
D/C zosyn. Resume usual prophylactic antibiotics.
Assessment / Plan
# Fever, severe sore throat, myalgias - acute onset 9pm 10/16/23
# Recent PE, RUE PICC thrombosis (10/13/23), picc dc'd
# Recent dx Diffuse large B cell lymphoma, mediastinal mass, malignant pericardial effusion, s/p 1st cycle R-EPOCH with neulasta 10/09/23
# Acute increase wbc 2.3 -> 39 (in 4 days)
- 10/16 COVID19 and Influenza negative
- CXR no PNA
- UA clean
- bcx's x2 no growth at 24 hours
- Suspect viral illness. (Son with URI)
- Rapid strep screen negative
- Nasal swab for Respiratory viral panel PCR - also negative
- monospot - negative
- Repeat COVID19 antigen test in 48 hrs (7/4 am)
- With cultures negative, would D/C further zosyn. Continue prophylactic antibiotics.
- No objection to D/C from ID standpoint.
- Continue prophylactic acylcovir and fluconazole
- Resume PJP prophylaxis Bactrim DS MWF. (Zosyn is not effective against PJP)
- Resume prophylactic levofloxacin.
Chief Complaint
-: Fever and Other (Immunosuppression)
Subjective / Review of Systems
Review of Systems: No Fever and No Chills
Vital Signs / Physical Exam
Vital Signs
Vital Signs
Temp Pulse Resp BP Pulse Ox
98.5 F 98 16 128/87 100
10/19/23 11:00 10/19/23 11:00 10/19/23 11:00 10/19/23 11:00 10/19/23 11:00
Physical Exam
Constitutional: No Acute Distress, Comfortable and Non-toxic
Eyes: No Conjunctival Hemorrhage
Cardiovascular: Regular Rate and S1/S2; Negative S3/S4
Pulmonary: Clear; Negative Wheezes or Rales
Gastrointestinal: Soft and Non Tender
Neurological: Awake and Alert
Psychological: Calm
Objective Data
Lab Data
Lab Results
10/19/23 05:20
10/19/23 05:20
Estimated Creat Clear 87 ml/min 10/19/23 05:20
Lactic Acid 0.8 mmol/L (0.7-2.0) 10/17/23 01:10
Total Bilirubin 0.3 mg/dl (0.2-1.3) 10/18/23 05:39
AST 30 U/L (14-36) 10/18/23 05:39
ALT 31 U/L (0-35) 10/18/23 05:39
Alkaline Phosphatase 142 U/L (38-126) H 10/18/23 05:39
Most recent labs reviewed.
Micro Results:
10/17/23 09:26 Streptococcus Screen (ROLDAN) - Final
Throat/Pharynx No Beta Hemolytic Streptococci Isolated
Streptococcus Rapid Screen - Final
Rapid Strep Screen (Group A) Negative
10/19/23 10:17 C. difficile GDH Antigen & Toxins - Final
Feces/Stool Negative for toxigenic C.difficile
10/17/23 01:10 Blood Culture - Preliminary
Blood/Venous No Growth in 48 hours- Final report to follow
10/17/23 01:10 Blood Culture - Preliminary
Blood/Venous No Growth in 48 hours- Final report to follow
10/17/23 16:16 Influenza Type A (PCR) - Final
Nasalpharynx Not Detected
Influenza Type A (H1) (PCR) - Final
Not Detected
Influenza Type A (H3) (PCR) - Final
Not Detected
Influenza Type B (PCR) - Final
Not Detected
Resp Syncytial Virus Type A (PCR) - Final
Not Detected
Resp Syncytial Virus Type B (PCR) - Final
Not Detected
Adenovirus DNA (PCR) - Final
Not Detected
Human Metapneumovirus (PCR) - Final
Not Detected
Parainfluenza Virus Type 1 (PCR) - Final
Not Detected
Parainfluenza Virus Type 2 (PCR) - Final
Not Detected
Parainfluenza Virus Type 3 (PCR) - Final
Not Detected
Parainfluenza Virus Type 4 - Final
Not Detected
Rhinovirus (PCR) - Final
Not Detected
10/17/23 02:10 Influenza Types A & B (SANTOSH) - Final
Nasal Swab Negative for Influenza A & B, NAAT
Negative results must be combined with clinical observations
and patient history.
Nucleic Acid Amplification test (NAAT)performed on the
[employer] platform.
10/17/23 CXR: No significant change in known mediastinal mass. No findings to suggest pneumonia.
10/11/[address]: There is a small eccentric pulmonary embolism in the segmental and subsegmental branches of the posterior segment of the right lower lobe. There is probably a second small embolus in the lateral segmental and subsegmental branches
of the right lower lobe. Large anterior mediastinal mass which appears slightly smaller than on examination of September 25, 2023, which would be suggestive of interval treatment. On review of [facility], the patient did receive first round of chemotherapy
last week. Interval resolution of right pleural effusion. Small left pleural effusion which appears unchanged. Significant interval improvement in pericardial effusion. In [facility], reported history of pericardiocentesis. Small remaining anterior
pericardial effusion is present.
Care Review
Plan reviewed with: Physician (Hospitalist)
--- NOTE | 2023-10-19 15:29 | W.DS.TRANS ---
Addendum entered and electronically signed by Darryl Sullivan MD 10/19/23 15:37:
Dictation- [id number]
Original Note:
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
-
Discharge Instructions:
Discharge Diagnosis/Procedures Fever, anemia, pulmonary embolism, diffuse large
B-cell lymphoma, migraines
Diet As tolerated
Activity As tolerated
Driving Restrictions As prior to admission
Instructions:
Stand-Alone Forms:
Changes to Home Medications: Yes
Discharge Medications:
DC Medications w/original date entered in [employer]
Lactobac no.2-Bifidobac no.1-S. thermo 112.5 billion cell capsule (Visbiome) 1 cap PO DAILY Gastrointestinal Issue 10/11/23
acyclovir 400 mg tablet 400 mg PO BID prophylaxis 10/11/23
fluconazole 200 mg tablet 400 mg PO DAILY prophylaxis 10/11/23
gabapentin 300 mg capsule 300 mg PO TID Pain 10/11/23
levofloxacin 500 mg tablet 500 mg PO DAILY prophylaxis 10/11/23
loratadine 10 mg tablet (Claritin) 10 mg PO DAILYPRN PRN the day of and 3 day after injection 10/11/23
rizatriptan 10 mg disintegrating tablet 0 mg PO .COMPLEX headache 10/11/23
sulfamethoxazole 800 mg-trimethoprim 160 mg tablet (Bactrim DS) 1 tab PO MOWEFR prophylaxis 10/11/23
therapeutic multivitamin 1 tab PO DAILY Supplement 10/11/23
oxycodone 5 mg tablet 5 mg PO TIDPRN PRN severe pains #30 tabs 10/13/23
nystatin 100,000 unit/mL oral suspension 5 ml PO QID thrush #60 mL 10/19/23
rivaroxaban 15 mg (42)-20 mg (9) tablets in a starter pack (Xarelto DVT-PE Treatment 30-Day Starter) See Rx Instructions PO .COMPLEX Blood clot prevention/tx #51 ea 10/19/23
Home Medication Changes
Eliquis stopped
Nystatin and Xarelto are new.
Pending Results: No
[2023-10-19 16:39] VITALS: BP 128/65
--- NOTE | 2023-10-19 17:06 | W.PN.UPDATE ---
Update Note
Progress Note Update
Patient called me back after she left send the pharmacy does not have the starter pack. They need to do prescriptions for 15 mg twice daily and 20 mg daily. I instructed the patient to complete the 15 mg twice daily before she switches to 20 mg
daily. I have sent another prescription to the pharmacy now.
--- NOTE | 2023-10-19 17:10 | W.DS.TRANS ---
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
-
Discharge Instructions:
Discharge Diagnosis/Procedures Fever, anemia, pulmonary embolism, diffuse large
B-cell lymphoma, migraines
Diet As tolerated
Activity As tolerated
Driving Restrictions As prior to admission
Instructions:
Stand-Alone Forms:
Changes to Home Medications: Yes
Discharge Medications:
DC Medications w/original date entered in [employer]
Lactobac no.2-Bifidobac no.1-S. thermo 112.5 billion cell capsule (Visbiome) 1 cap PO DAILY Gastrointestinal Issue 10/11/23
acyclovir 400 mg tablet 400 mg PO BID prophylaxis 10/11/23
fluconazole 200 mg tablet 400 mg PO DAILY prophylaxis 10/11/23
gabapentin 300 mg capsule 300 mg PO TID Pain 10/11/23
levofloxacin 500 mg tablet 500 mg PO DAILY prophylaxis 10/11/23
loratadine 10 mg tablet (Claritin) 10 mg PO DAILYPRN PRN the day of and 3 day after injection 10/11/23
rizatriptan 10 mg disintegrating tablet 0 mg PO .COMPLEX headache 10/11/23
sulfamethoxazole 800 mg-trimethoprim 160 mg tablet (Bactrim DS) 1 tab PO MOWEFR prophylaxis 10/11/23
therapeutic multivitamin 1 tab PO DAILY Supplement 10/11/23
oxycodone 5 mg tablet 5 mg PO TIDPRN PRN severe pains #30 tabs 10/13/23
nystatin 100,000 unit/mL oral suspension 5 ml PO QID thrush #60 mL 10/19/23
rivaroxaban 15 mg tablet (Xarelto) 15 mg PO BID Blood clot prevention/tx #40 tabs 10/19/23
rivaroxaban 20 mg tablet (Xarelto) 20 mg PO QPM Blood clot prevention/tx #30 tabs 10/19/23
Home Medication Changes
Xarelto new
Nystatin new
Eliquis stopped
Pending Results: No
== END 2023-10-19 16:39 | disposition home or self-care (01) | DRG 840 ==
LOC: 3 WEST ACU 05:19
PROVIDERS: Student in an Organized Health Care Education/Training Program; ADMITTING PHYSICIAN Hospitalist; ATTENDING PHYSICIAN Hospitalist; CONSULT PHYSICIAN Internal Medicine Infectious Disease; EMERGENCY PHYSICIAN Student in an Organized Health Care Education/Training Program; FAMILY PHYSICIAN Nurse Practitioner Family; OTHER PHYSICIAN Internal Medicine Hematology & Oncology
DX: C83.30 Diffuse large B-cell lymphoma, unspecified site (principal); I26.99 Other pulmonary embolism without acute cor pulmonale; D84.9 Immunodeficiency, unspecified; I31.31 Malignant pericardial effusion in diseases classified elsewhere; B37.0 Candidal stomatitis; R50.9 Fever, unspecified; D63.0 Anemia in neoplastic disease; G43.909 Migraine, unspecified, not intractable, without status migrainosus; G62.9 Polyneuropathy, unspecified; J02.8 Acute pharyngitis due to other specified organisms; D64.81 Anemia due to antineoplastic chemotherapy; R74.01 Elevation of levels of liver transaminase levels; Z79.01 Long term (current) use of anticoagulants; Z79.899 Other long term (current) drug therapy; Z20.828 Contact with and (suspected) exposure to other viral communicable diseases; Z11.52 Encounter for screening for COVID-19; Z86.718 Personal history of other venous thrombosis and embolism
CPT/HCPCS: 71046; 76700; 80048; 80053; 81003; 82248; 82607; 82728; 83540; 83550; 83605; 84703; 85025; 85027; 86308; 87040; 87070; 87324; 87449; 87502; 87633; 87811; 87880; 93005; 96365; 99285

== ENCOUNTER 2023-12-16 01:48 | Inpatient (IN) | payer BC, SELFPAY ==
[2023-12-15 20:09] VITALS: BP 120/76
[2023-12-15 23:00] VITALS: BP 128/79
[2023-12-15 23:28] VITALS: BMI 24.4
[2023-12-16] VITALS (9 sets, daily range): BP systolic 93–118; BP diastolic 47–79; BMI 23.7
--- NOTE | 2023-12-16 00:08 | ED.GENMED ---
History of Present Illness
General
Chief Complaint: Fever
Source: patient
Exam Limitations: none
Time Seen by Provider: 12/15/23 23:21
History of Present Illness
History of Present Illness:
This is a 38 year old female that comes in with c/o fever. States that she was at [facility] today as she had chest pain. States that tonight when she got home she started with a fever around 6:30-k. States that she still has the chest pain
and they felt it was from her Chemo. States that she finished this last round of Chemo on Monday as it runs for 5 days and she started on . States that she also had a unit of blood today. States that she had fever with chills, chest pain
and SOB. States that know she has a headache. Patient has a PICC line. Denies any abd pain, nausea, vomiting, diarrhea, dizziness, urinary burning.
Past History
Past History
ED Past Medical History: Cancer (Large B cell Lymphoma. ), Other (Migraines, Neuropathy, DVT, Malignant Pericardial effusion, Pericardialcentesis) and Other (migraines )
ED Past Surgical History: (X1), Gynecological (Uterine polyp removed) and Other (Thoracic surgical mass in chest)
Social History
Tobacco: Non-smoker
Alcohol: None
Drug: None
Personal:
Living: with family
Review of Systems
Review of Systems
All Other Systems: ROS reviewed and negative except as documented in HPI and ROS
Constitutional: Reports fever and chills
EENT: Reports no symptoms
Respiratory: Reports trouble breathing
Cardiac: Reports chest pain
ABD/GI: Reports no symptoms; Denies abdominal pain, nausea, vomiting or diarrhea
: Reports no symptoms; Denies dysuria, frequency or urgency
Musculoskeletal: Reports no symptoms
Skin: Reports no symptoms
Neurological: Reports headache; Denies dizzy
Psychiatric: Reports no symptoms
Phy Exam
General Physical Exam
General Presentation: mild distress
General age: appears stated age
General Skin: warm and dry
General Habitus: normal
General Mental: alert
General Hydration: appears well hydrated
ENT Exam
ENT Exam: TM's normal, pharynx normal and neck supple
Eye Exam
Eye Exam: EOMI
Cardiovascular Exam
Cardiovascular Exam: no edema, no murmur, normal peripheral pulses and tachycardia
Pulmonary Exam
Pulmonary Exam: no respiratory distress, chest non tender, no rhonchi, no wheezing, no cough and other (very fine crackles bases)
Gastrointestinal Exam
Gastrointestinal Exam: normal bowel sounds, non tender, soft, no organomegaly, no pulsatile mass and non distended
Musculoskeletal Exam
Musculoskeletal Exam: full ROM, no edema and other (Left upper arm PICC line. Site clean and dry)
Skin Exam
Skin Exam: normal color, warm/dry, no rash and no petechia
Psychiatric Exam
Psychiatric Exam: normal mood/affect
Course
Orders/Labs/Results
Orders:
Orders
12/15/23 20:12
Electrocardiogram (*1) Urgent
Reason for Study: Chest Pain
EKG- Treatment ONCE
12/15/23 23:32
CMP [Comprehensive Metabolic Panel] Urgent
Complete Blood Count/With Diff Urgent
Troponin I Urgent
CXR2 [CR Chest - 2 Views ] Urgent
Comment:
Reason For Exam: picc line, chest pain, and fever
12/16/23 00:08
Urinalysis Reflex To Culture Urgent
12/16/23 00:09
HYDROmorphone [Dilaudid] 1 mg IV NOW STA
12/16/23 00:15
Acetaminophen [Tylenol] 1,000 mg PO NOW STA
12/16/23 00:16
0.9% Sodium Chloride 1000 ml [Nss] 1,000 ml IV BOLUS
12/16/23 00:23
Lactic Acid Urgent
Blood Culture Urgent
ROLDAN Source: Blood/Venous
Specimen Description:
Comment: Please get 2 sets
12/16/23 00:59
Piperacillin/Tazo 3.375 Gram [Zosyn] 3.375 gram in 50 ml IV NOW
12/16/23 01:03
Vancomycin 1 Gram/200 ml [Vancocin] 1 gram in 200 ml IV NOW
12/16/23 01:18
COVID-19 Antigen Urgent
Source: Nasal Swab
12/16/23 01:30
Admit/Transfer Patient As Directed
Co-Sign Provider:
Level of Care: Inpatient admission
Assign to:: Telemetry
Physician / Group: [email or web address]
Diagnosis: Fever and Panctopenia: SIRS picture of uncertiain origin
Reason for Telemetry: Other
Other Reason for Telemetry: SIRS picture of uncertiain origin
Date to Stop Telemetry: 12/18/23
Time to Stop Telemetry: 11:00
Reason for Hospitalization: Fever and Panctopenia: SIRS picture of uncertiain origin
Expected length of stay greater than two midnights?: Yes
ELOS- Estimated Length of Stay in days: 3
I certify the patient meets the requirements for IP care: Yes
12/16/23 01:36
Code Status As Directed
Resuscitation Status: Full Code
12/18/23 11:00
DC Protocol for Telemetry ONCE
Abnormal Lab Results
12/16/23
00:23
WBC 3.9 L 10^3/uL
(4.8-10.8)
RBC 2.53 L 10^6/uL
(4.20-5.40)
Hgb 8.0 L g/dL
(12.0-16.0)
Hct 22.6 L %
(37.0-47.0)
MCH 31.6 H pg
(27.0-31.0)
RDW 19.7 H %
(11.5-14.5)
Plt Count 129 L 10^3/uL
(130-400)
MPV 10.6 H fL
(7.4-10.4)
Abs Immat Gran (auto) 0.6 H 10^3/uL
(0-0.05)
Absolute Lymphs (auto) 0.1 L 10^3/uL
(1.2-3.4)
Absolute Monos (auto) 0.0 L 10^3/uL
(0.1-0.6)
Immature Gran % 15.5 H %
(0-0.5)
Neutrophils % 79.8 H %
(42.2-75.2)
Lymphocytes % 3.1 L %
(20.5-51.1)
Monocytes % 1.0 L %
(1.7-9.3)
Creatinine 0.5 L mg/dL
(0.6-1.0)
Glucose 118 H mg/dl
(70-99)
Total Protein 5.7 L g/dl
(6.3-8.2)
12/16/23 00:23
12/16/23 00:23
Pancytopenia, Hyperglycemia. Total protein low. Lactic acid normal at 0.7, COVID negative. Troponin <0.012
Vital Signs
Initial and Last Documented VS:
Initial Vital Signs
Temp Pulse Resp BP Pulse Ox
100.7 F H 120 18 120/76 100
12/15/23 20:09 12/15/23 20:09 12/15/23 20:09 12/15/23 20:09 12/15/23 20:09
Last Documented Vital Signs
Temp Pulse Resp BP Pulse Ox
98.7 F 102 12 95/47 96
12/16/23 02:00 12/16/23 02:00 12/16/23 02:00 12/16/23 02:00 12/16/23 02:00
MDM/Problems Addressed
Differential Diagnosis Includes:
PICC line infection. Reaction to recent blood given. Neutropenic,
MDM/Problems Addressed:
This is a 38 year old female that comes in with c/o fever. States that she was at [facility] for [facility]. States that she was told that they felt it was from her chemo. Patient was also given blood while she was there. At 6:30pm she started with
a fever so she came in.
Will check labs, Blood culture. Lactic acid. Chest x-ray. Urine. Medicate for fever and will admit patient.
Back into see patient and reviewed labs and chest X-ray. will get COVID and start on antibiotics. Will admit patient. Hospitalist notified.
Chronic conditions affecting care: Cancer
Acute Exacerbation and/or Progression of Chronic Illness: Cancer
*Pulse Oximetry
Patient hypoxic: no
*EKG
Interpreted by ED Provider?: Yes
Heart Rate: 108
Rate: tachycardiac
Rhythm: sinus tachycardia
[place]: normal axis
Interval: normal interval
QRS Pattern: normal QRS
Ischemia: non-specific ST changes
*House Mover Supervisor Interpretation
Rate: tachycardiac
Heart Rate: 120
Rhythm: sinus tachycardia
*Critical Care Note
Total Time (30-74mins, 75-104mins- exclusive of procedures): Not Applicable
ED Attending Note
-
Portions of this chart may have been created with voice recognition software.� Occasional wrong word or��sound alike� substitutions may have occurred due to the inherent limitations of voice recognition software.
Discharge Plan
Departure
Patient Disposition: Admit
Date of Disposition: 12/16/23
Time of Disposition: 01:11
Admit to: Telemetry
Presentation/result/management discussed w/ accepting MD/DO: Hospitalist
Patient with high blood pressure during this ER visit?: No
Condition: Good
Discharge Problem:
Pancytopenia, Fever
Interventions
Interventions:
*Risk Screen - Suicide Last Done: 12/15/23 20:09
*General Assessment Last Done: 12/15/23 20:09
*Neglect/Abuse Screening Last Done: 12/15/23 20:09
ED- Fall Risk Assessment Last Done: 12/15/23 23:33
*ED COVID-19 Vaccine History Last Done: 12/15/23 20:09
ED- Neurological Assessment Last Done: 12/15/23 23:33
ED-Skin Assessment Last Done: 12/15/23 23:33
[2023-12-16] MEDS: DILAUDID 1 MG IV (00:25)
[2023-12-16] MEDS: TYLENOL 1000 MG PO (00:26)
[2023-12-16] MEDS: NSS 1000 IV ×3 (00:28→15:05)
[2023-12-16 00:49] LABS: Hematocrit 22.6 % (37.0-47.0); Lactic Acid 0.7 mmol/L (0.7-2.0); Mean Corp Hgb Conc. 35.4 g/dL (33.0-37.0); Mean Corpuscular Hgb 31.6 pg (27.0-31.0); Mean Corpuscular Volume 89.3 fL (81.0-99.0); Mean Platelet Volume 10.6 fL (7.4-10.4); Platelet Count 129 10^3/uL (130-400); Red Blood Cell Count 2.53 10^6/uL (4.20-5.40); Red Cell Dist. Width 19.7 % (11.5-14.5); White Blood Cell Count 3.9 10^3/uL (4.8-10.8)
[2023-12-16 01:01] LABS: Troponin I < 0.012 ng/ml
[2023-12-16 01:09] LABS: ALT (SGPT) 21 U/L (0-35); AST (SGOT) 16 U/L (14-36); Albumin 3.7 g/dl (3.5-5.0); Alkaline Phosphatase 53 U/L (38-126); Blood Urea Nitrogen 15 mg/dl (7-17); Calcium 9.2 mg/dl (8.4-10.2); Carbon Dioxide 26 mmol/L (22-30); Chloride 102 mmol/L (98-107); Estimated Creatinine Clearance 113 ml/min; Glucose 118 mg/dl (70-99); Potassium 4.2 mmol/L (3.5-5.1); Sodium 137 mmol/L (135-145); Total Bilirubin 0.5 mg/dl (0.2-1.3); Total Protein 5.7 g/dl (6.3-8.2); eGFR > 60.00
--- NOTE | 2023-12-16 01:10 | HPS.HSE ---
Family Physician
-
Family Physician: Onel Tucker MD
Chief Complaint
-
Fveevr and chill , CP
History of Present Illness
HPI
38F HX Large B cell Lymphoma, follow at [facility], last round of chemo on Wednesday 12/13.
Onset of CP and seen at [facility] and told due to chemo. She also received 1 unit of PRBC there.
Tonight around 6:30 pm noted fever with chills plus CP and SoB
At ER T max was 100.7
POS CRUZ.
Has a PICC line. Denied tenderness at the side and track.
ROS:
Denies any abd pain, nausea, vomiting, diarrhea, dizziness, urinary burning.
Medical History
Past Medical History
Past Medical History: Reports Other
Additional Past Medical History:
DLBCL
Malignant Pericardial Effusion
Past Surgical History: Reports Other
Additional Past Surgical History:
Pericardiocentesis
Lymph Node Biopsy
Social History
Tobacco: Non-smoker
Alcohol: Occasional
Drug: None
Family History
Family History: Hypertension and Other (Father: Thyroid Disease)
Allergies / Home Medications
Allergies reflects when Allergies were last updated in [facility].
Home Medications with original date entered in [facility]
Allergy/Medication List:
Allergies
Allergy/AdvReac Type Severity Reaction Status Date / Time
No Known Allergies Allergy Verified 10/16/23 23:41
Home Medications
Lactobac no.2-Bifidobac no.1-S. thermo 112.5 billion cell capsule (Visbiome) 1 cap PO DAILY Gastrointestinal Issue 10/11/23
acyclovir 400 mg tablet 400 mg PO BID prophylaxis 10/11/23
fluconazole 200 mg tablet 400 mg PO DAILY prophylaxis 10/11/23
gabapentin 300 mg capsule 300 mg PO TID Pain 10/11/23
levofloxacin 500 mg tablet 500 mg PO DAILY Infection 10/11/23
loratadine 10 mg tablet (Claritin) 10 mg PO DAILYPRN PRN the day of and 3 day after injection 10/11/23
ondansetron HCl 8 mg tablet 8 mg PO [id number] PRN nausea 10/11/23
rizatriptan 10 mg disintegrating tablet 0 mg PO .COMPLEX headache 10/11/23
sulfamethoxazole 800 mg-trimethoprim 160 mg tablet (Bactrim DS) 1 tab PO MOWEFR prophylaxis 10/11/23
therapeutic multivitamin 1 tab PO DAILY Supplement 10/11/23
apixaban 5 mg tablet (Eliquis) 10 mg (2 x 5 mg) PO BID #90 tabs 10/13/23
oxycodone 5 mg tablet 5 mg PO TIDPRN PRN severe pains #30 tabs 10/13/23
Review of Systems
-
History Source: Patient
A 12 point ROS was completed and negative except as noted: Yes
Constitutional: Reports Fever, Fatigue and Chills
EENT: Denies Sore Throat
Respiratory: Denies Cough or Trouble Breathing
Cardiac: Denies Chest Pain or Palpitations
Abdomen/GI: Denies Abdominal Pain, Nausea, Vomiting or Diarrhea
: Denies Dysuria, Frequency or Flank Pain
Musculoskeletal: Reports Muscle Pain; Denies Joint Pain or Edema
Neurological: Denies Dizzy or Headache
Psych: Denies Depression or Anxiety
Physical Exam
Vital Signs
Vital Signs
Temp Pulse Resp BP Pulse Ox
100.4 F H 122 29 118/69 99
12/16/23 00:00 12/16/23 00:12 12/16/23 00:12 12/16/23 00:12 12/16/23 00:12
Physical Exam
General: Other (38y F in mild distress due to sore throat / fever.)
HEENT: Other (MMM, tongue enlarged without ulcerations / coating / etc. No evident mucosal lsions, ulcerations, etc. Pos cervical lymphadenopathy)
Respiratory: Clear; No Wheezes, Rales or Rhonchi
Cardiac: S1/S2 and Tachycardia; No Murmur
GI: Soft, Non Tender, Non Distended and Normal Bowel Sounds
Musculoskeletal: No Clubbing, No Cyanosis and No Edema
Neuro: AO x 3
Psych: Calm
Laboratory Results
-
12/16/23 00:23
12/16/23 00:23
Laboratory Results
Lactic Acid 0.7 mmol/L (0.7-2.0) 12/16/23 00:23
Total Bilirubin 0.5 mg/dl (0.2-1.3) 12/16/23 00:23
AST 16 U/L (14-36) 12/16/23 00:23
ALT 21 U/L (0-35) 12/16/23 00:23
Alkaline Phosphatase 53 U/L (38-126) 12/16/23 00:23
Troponin I < 0.012 ng/ml 12/16/23 00:23
Data Reviewed
-
Diagnostic Radiology: Other (pending )
Lab Data: Discussed with Physician
Old Records: Reviewed
Impression/Plan
-
Vital Signs
Temp Pulse Resp BP Pulse Ox
100.4 F H 122 29 118/69 99
12/16/23 00:00 12/16/23 00:12 12/16/23 00:12 12/16/23 00:12 12/16/23 00:12
Data
10/19/23 12/16/23
05:20 00:23
WBC 21.1 H 3.9 L
Hgb 8.8 L 8.0 L
Plt Count 160 129 L
Creatinine 0.5 L
eGFR > 60.00
Total Protein 5.7 L
CXR pending final report
Pending Covid Ag
Pending UA and reflex to UCX
BCx sent
Last hospitalist admission: 10/17/2023 - 10/19/2023
DISCHARGE DIAGNOSES:
1. Fever.
2. Anemia.
3. Pulmonary embolism.
4. Diffuse large B-cell lymphoma.
5. Migraines.
ASSESSMENT & PLAN
Fever and Pancytopenia: SIRS picture of uncertain origin
Normocytic Anemia s/p 1 unit of PRBC today at [facility]
Recently comleted Chemo ( 12/07/23 to 12/11/23)
- Likely related to recent chemo.
- Empiric vanco and Zosyn for now.
- Follow-up UCX and BCx
- Supportive care:IVFs, antipyretics, pain control, etc.
- Continue to follow H&H.
- Transfuse if needed for Hgb < 7 or symptoms
- ID consult
Diffuse large B-cell lymphoma.
- Currently followed at [facility]
- Continue prophylactic fluconazole and acyclovir.
- Bactrim and LVQ on hold while on Zosyn.
Pulmonary Emboli HX
RUE DVT - Catheter Associated
- Stable.
- Patient reports tongue swelling that started after beginning new Eliquis.
- on Xarelto
DVT Px: Xarelto
Code: Full
IP TLM
[2023-12-16] MEDS: ZOSYN 50 IV ×5 (01:13→23:16)
[2023-12-16 01:24] LABS: % Basophils 0.3 % (0-2); % Eosinophils 0.3 % (0-6); % Immature Granulocytes 15.5 % (0-0.5); % Lymphocytes 3.1 % (20.5-51.1); % Neutrophils 79.8 % (42.2-75.2); Absolute Immature Granulocytes 0.6 10^3/uL (0-0.05); Absolute Lymphocytes 0.1 10^3/uL (1.2-3.4); Absolute Neutrophils 3.1 10^3/uL (1.4-6.5); Anisocytosis 1+; Hypochromasia 1+; Microcytosis Occasional; Normal RBC Morphology No; Nucleated Red Blood Cells % 0 %
[2023-12-16 01:25] LABS: Macrocytosis Occasional; Tear Drop Red Blood Cells 1+
[2023-12-16 01:40] LABS: COVID-19 Antigen Negative (Negative)
[2023-12-16] MEDS: VANCOCIN 200 IV ×2 (02:01→17:44)
[2023-12-16 03:31] LABS: Urine Albumin Negative (Neg - Trace); Urine Bilirubin Negative (Negative); Urine Character Clear (Clear); Urine Color Yellow; Urine Glucose Negative (Negative); Urine Ketone Negative (Negative); Urine Leukocyte Negative (Negative); Urine Nitrite Negative (Negative); Urine Occult Blood Negative (Negative); Urine Specific Gravity 1.005 (<1.030); Urine Urobilinogen Negative (Neg - 1+)
[2023-12-16] MEDS: DILAUDID 0.5 MG IV (05:43)
--- NOTE | 2023-12-16 06:07 | PTCARENOTE ---
patient admitted to 2125, placed on tele. oriented to room and call molina. inst on POC at this time. pt verb understanding
[2023-12-16 07:06] LABS: ALT (SGPT) 18 U/L (0-35); AST (SGOT) 15 U/L (14-36); Albumin 3.2 g/dl (3.5-5.0); Alkaline Phosphatase 44 U/L (38-126); Blood Urea Nitrogen 12 mg/dl (7-17); Calcium 8.7 mg/dl (8.4-10.2); Carbon Dioxide 26 mmol/L (22-30); Chloride 103 mmol/L (98-107); Estimated Creatinine Clearance 113 ml/min; Glucose 110 mg/dl (70-99); Potassium 4.3 mmol/L (3.5-5.1); Sodium 136 mmol/L (135-145); Total Bilirubin 0.8 mg/dl (0.2-1.3); Total Protein 5.1 g/dl (6.3-8.2); eGFR > 60.00
--- NOTE | 2023-12-16 07:48 | W.PN.HOSP.TC ---
Addendum entered and electronically signed by Franklin Wade MD 12/16/23 22:46:
Attending Addendum-
I saw and evaluated the patient. I reviewed the resident�s note and agree with findings and plan as documented in the resident�s note. Sub: continues to be febrile. no localizing sxs for infection. Had CP which resolved wwith massage. Full 12 point
ROS reviewed and negative except as documented Exam: Vitals reviewed in chart GEN-nad heart tachycardic lungs clear abd soft LE no edema LUE PICC in place
Sepsis no source identified yet
- follow blood cx
- check UA and cxr- personally reviewed no acute CP process smaller med mass
- Likely related to recent chemo.
- cont vanco and Zosyn for now.
- Follow-up UCX and BCx
- Supportive care:IVFs, antipyretics, pain control, etc.
- ID consult
# Diffuse large B-cell lymphoma.
Normocytic Anemia s/p 1 unit of PRBC today at [facility]
Recently completed Chemo ( 12/07/23 to 12/11/23)
- Currently followed at [facility]
- Continue prophylactic fluconazole and acyclovir.
- restart Bactrim
- Levaquin on hold while on Zosyn.
# Pancytopenia
- Continue to follow daily CBC
- Transfuse if needed for Hgb < 7 plt <20
- likely chemo related
# Pulmonary Emboli HX
-RUE DVT - Catheter Associated- removed
- Stable.
- Patient reports tongue swelling that started after beginning new Eliquis.
- cont Xarelto
# Migraine
- cont rivatripan prn
DVT Px: Xarelto
Code: Full
Time spent coordinating care, review of plan of care with resident, personally reviewed records in EMR, med rec, consults, notes, labs, radiology, d/w nursing � 59 mins
Original Note:
Today's Communication/Plan
-
Observe overnight for fever spikes. make sure pain is controlled. C/w abx, antifungals, and other PPx antimicrobial medications per ID.
Assessment / Plan
Assessment / Plan
38 yo F with a PMHx of Diffuse large B-cell lymphoma currently on Chemotherapy (last round 12/13) presented to the ED with fever and chest pain
##SIRS without evidence for acute end organ damage; unknown etiology, likely secondary to Chemotherapy
#Pancytopenia
- WBCs 1.9, Hgb 7.1, Plt 109
- Febrile to 100.7F, HR 109, PICC line LUE
- Began Empiric Vancomycin/Zosyn
- CXR (-), UA (-), COVID (-)
- B/Cx drawn, results pending
#Chest pain, most likely multifactorial (musculoskeletal + side effect from chemotherapy)
- Reproducible on exam, not associated with exertion
- ECG unremarkable
- Pain much improved with QID Oxycodone 10mg.
- C/w current pain regimen & re-evaluate in the AM
#Normocytic Anemia
-S/p 1 unit PRBC at [facility] immediately prior to admission
- Following H&H
- Transfuse if needed for Hgb <7
#Diffuse Large B-Cell Lymphoma
- Being followed outpatient at [facility]
- Continue with prophylactic fluconazole, Acyclovir, and Bactrim (PJP PPx)
- Prophylactic Levofloxacin on hold while on Zosyn
- Pending Heme/Onc consult
#History of Pulmonary Emboli
#HX of Right Upper Extremity DVT (catheter associated)
- Allergy to Eliquis
- On Xarelto for DVT PPx
#Neuropathic Pain, chronic
- C/w gabapentin 300mg TID
#Migraine
- Rizatriptan PRN for Migraine symptoms
Dispo: Telemetry
Diet: Regular
DVT Ppx: on Xarelto
Code: Full Code
Anticipated Discharge: 24 - 48 hours
Subjective/Interval History
-
Seen in the AM. Tearful and in pain. Chest pain was minimally improved with Dilaudid overnight, present, stabbing, 10/10, central, non-radiating and associated with shortness of breath, lightheadedness, or palpitations.
Patient also had a fever of 100.7 in the late morning. She was not experiencing any dysuria, nausea, vomiting, diarrhea, cough, runny nose, lesions on her skin, or swelling in her extremities.
Objective Data
-
Labs:
Laboratory Results
12/16/23 12/16/23
00:23 06:30
WBC 3.9 L Pending
Hgb 8.0 L Pending
Hct 22.6 L Pending
Plt Count 129 L Pending
Sodium 137 136
Potassium 4.2 4.3
Chloride 102 103
Carbon Dioxide 26 26
BUN 15 12
Creatinine 0.5 L 0.6
Glucose 118 H 110 H
Calcium 9.2 8.7
Total Bilirubin 0.5 0.8
AST 16 15
ALT 21 18
Alkaline Phosphatase 53 44
Vital Signs:
Vital Signs
Temp Pulse Resp BP Pulse Ox
98.7 F 75 16 100/62 99
12/16/23 03:47 12/16/23 03:47 12/16/23 03:47 12/16/23 03:47 12/16/23 03:47
I&O
12/15/23 12/16/23 12/17/23
06:59 06:59 06:59
Intake Total 1650 / 1650
Balance 1650 / 1650
Review of Systems
-
History Source: Patient
All other systems: Reviewed and negative
Constitutional: Reports Fever, Chills and Weakness
EENT: Reports No Symptoms Reported
Respiratory: Reports No Symptoms
Cardiac: Reports Chest Pain
Abdomen/GI: Reports No Symptoms
Breast: Reports N/A
Genitourinary: Reports No Symptoms
Musculoskeletal: Reports No Symptoms
Skin: Reports No Symptoms
Neuro: Reports No Symptoms
Physical Exam
-
General: Well Developed and Well Nourished
HEENT: Normocephalic, Atraumatic, Moist Mucous Membranes, Anicteric, No Ptosis, PERRLA, Nose Appears Normal, Ears Appear Normal and Neck Non Tender
Respiratory: Clear to Auscultation
Cardiac: Regular Rhythm and S1/S2
Breast: Deferred by me
GI: Soft, Nontender, Nondistended and Normal Bowel Sounds
Genito-urinary: No Costovertebral Tender
Musculoskeletal: No Clubbing, No Cyanosis and No Edema
Skin: Warm and IV Access / Catheter Site (PICC Line in the L arm, clean, non-tender, no drainage, cleanly wrapped)
Neuro: Awake, Alert, Oriented, Nonfocal/Grossly Intact and No Sensory Deficits
Hematologic / Lymphatic: No Lymphadenopathy
Psych: Other (Tearful)
--- NOTE | 2023-12-16 07:49 | PHA.VAN.IN ---
Addendum entered and electronically signed by Huber Gan [facility] 12/16/23 08:00:
Indication for IV vancomycin consult: Other
Original Note:
Assessment
- Assessment
Renal Function: Unknown baseline
Maximum Temperature: 100.7 on 12/15/23 at 20:09
Minimum Temperature: 98.7 on 12/16/23 at 03:47
Concomitant Antimicrobials: Piperacillin-tazobactam, (acyclovir, fluconazole PO, home meds, prophylaxis
AUC Dosing Plan
- Dosing Variables
Dosing Weight (kg): 64.72
Dosing CrCl (ml/min): 100
Vd coefficient (L/kg): 0.7
- Empiric Dosing
Initial / Loading Dose: Vancomycin 1000mg IV given this morning at 02:01
Maintenance Regimen: Vancomycin 1000mg IV Q12hrs begin today at 18:00
Estimated AUC (mcg*h/mL): 527
Estimated Peak (mcg*h/mL): 34
Estimated Trough (mcg/ml): 13
Estimated Half Life (H): 8
- Monitoring
No levels ordered at this time: Levels will be ordered according to vancomycin dosing protocol
Pharmacokinetics Vancomycin I
- -
Patient Age: 38
Patient Sex: Female
Vancomycin Day #: 1
Indication: Neutropenic Fever
Requesting Provider: Dr. Justin Davis
Pertinent Antimicrobial Allergies:
No antibiotic allergies
Height / Weight:
Height 5 ft 5 in
Actual Weight 64.728 kg
IBW in k
Adjusted BW in k.1
Pertinent Past Medical History: Large B cell lymphoma on chemotherapy
- Vital Signs / Lab Results
Temp Pulse Resp BP Pulse Ox
98.7 F 75 16 100/62 99
12/16/23 03:47 12/16/23 03:47 12/16/23 03:47 12/16/23 03:47 12/16/23 03:47
Lab Results - Hematology
12/16/23
00:23
WBC 3.9 L
Lab Results - Chemistry
12/16/23 12/16/23
00:23 06:30
BUN 15 12
Creatinine 0.5 L 0.6
Estimated Creat Clear 113 113
Albumin 3.7 3.2 L
12/16/23 12/16/23 12/16/23
00:23 04:06 07:41
Lactic Acid 0.7 Cancelled Cancelled
12/16/23 12/16/23
11:41 15:41
Lactic Acid Cancelled Cancelled
Lab Results - Urine
12/16/23
03:17
Urine Nitrite (Reflex) Negative
Leukocyte Esterase Rfl Negative
[2023-12-16] MEDS: DIFLUCAN 400 MG PO (08:27)
[2023-12-16] MEDS: ZOVIRAX 400 MG PO ×2 (08:27→19:41)
[2023-12-16] MEDS: VISBIOME 1 CAP PO (08:27)
[2023-12-16] MEDS: ROXICODONE 10 MG PO ×4 (08:27→21:13)
[2023-12-16] MEDS: NEURONTIN 300 MG PO ×3 (08:28→21:12)
[2023-12-16 09:08] LABS: Hematocrit 20.4 % (37.0-47.0); Hemoglobin 7.1 g/dL (12.0-16.0); Mean Corp Hgb Conc. 34.8 g/dL (33.0-37.0); Mean Corpuscular Volume 89.1 fL (81.0-99.0); Platelet Count 104 10^3/uL (130-400); Red Blood Cell Count 2.29 10^6/uL (4.20-5.40); Red Cell Dist. Width 19.7 % (11.5-14.5); White Blood Cell Count 1.9 10^3/uL (4.8-10.8)
[2023-12-16 09:57] LABS: Absolute Neutrophils -Man Diff 1.5 10^3/uL (1.4-6.5); Band Neutrophils 3 % (0-3); Lymphocytes 12 % (20-51); Monocytes 3 % (2-9); Segmented Neutrophils 81 % (42-75)
[2023-12-16 09:58] LABS: Eosinophils 1 % (0-6)
[2023-12-16 09:59] LABS: Anisocytosis Slight; Macrocytosis Slight; Normal RBC Morphology No; Platelets Checked YES
[2023-12-16 10:00] LABS: Hypersegmented Neutrophil FEW; Tear Drop Red Blood Cells FEW; Total Cells Counted 100
--- NOTE | 2023-12-16 11:23 | CON.ID ---
Consultation
-
Date/Time Consultation Requested: December 16, 2023 0341
Date/Time Consultation Performed: December 16, 2023 1123
Requesting Provider: Dr. Sai Davis
Performing Provider: Dr. Eliana Bunch
Reason for Consultation: Fever and pancytopenia, SIRS picture
Chief Complaint / Past History
Chief Complaint
Chest pain, fever
History of Present Illness
38-year-old female diagnosed of diffuse large B-cell lymphoma early September 2023 with large mediastinal mass and malignant pericardial effusion status post pericardiocentesis at [facility], on R�EPOCH with Neulasta support last received on December 13.
On Monday she did not develop substernal chest pain which was tolerable. She was told by her oncologist that chest pain was due to chemotherapy. Patient had extensive workup including chest CT to look for PE previously for chest pain after
receiving third round of chemotherapy; workup was negative. However on the chest pain became severe. Pain is worse with deep breathing. Last night she developed fever and chills. She therefore came to the ER. She continues to have the
chest pain and taking minimal breaths. No headache, rhinorrhea, sinus congestion, or sore throat. No cough. No nausea, vomiting, abdominal pain or diarrhea. No urinary symptoms. No rash. She has 2 young children who go to daycare but they
appear fine. She does not spend much time outdoors. No travel. She continues taking her prophylactic antiviral, antifungal, and antibiotic.
Past History
Additional Past Medical History:
Diffuse Large B-cell lymphoma, massive mediastinal mass, malignant pericardial effusion diagnosed September 2023 status post first round chemotherapy (R-EPOCH) and Neulasta ([facility])
PICC associated DVT
Migraine
Additional Past Surgical History:
Allergy History:
No Known Allergies Allergy (Verified 10/16/23 23:41)
Medications Reviewed: Yes
Current Antibiotics:
Vancomycin d1
Zosyn d1
Prophylactic acyclovir 400 mg daily
Prophylactic fluconazole 400 mg daily
Prophylactic levofloxacin 500 mg daily
Prophylactic Bactrim double strength Fridays
Social History
Tobacco: Non-Smoker
Alcohol: Occasional
Drug: None
Personal:
Living: With Family
Family History
Family History: Not Pertinent
Review of Systems
Review of Systems
General: Fever, Chills and Change in Appetite
HEENT: Negative Lymphadenopathy, Stiff Neck, Sinus Problems, Headache or Pharyngitis
Cardiovascular: Chest Pain
Respiratory: Negative Cough
Gasteroenterology: Negative Nausea or Vomiting
Genital / Urological: Negative Dysuria or Flank Pain
Endocrine: Negative Weakness or Fatigue
Skin / Hair / Nails: Negative Rash
Neurological: Negative Headache or Dizziness
All systems: All other systems were reviewed and were negative
Vital Signs
Temp Pulse Resp BP Pulse Ox
97.5 F 104 16 116/77 98
12/16/23 07:00 12/16/23 07:00 12/16/23 07:00 12/16/23 07:00 12/16/23 07:00
Selected Entries
12/15/23
20:09
Temp 100.7 F H
Physical Exam
Physical Exam
Constitutional: No Acute Distress and Comfortable
Head: Other (No frontal or maxillary sinus tenderness)
Eyes: No Conjunctival Hemorrhage and Sclera Anicteric
Pharynx: Benign; Negative Erythema
Oral: Negative No Thrush or No Ulcers
Cardiovascular: S1/S2 and Other (Tachychardic)
Pulmonary: Clear
Gastrointestinal: Soft, Non Tender, Non Distended and Normal Bowel Sounds
Genito-Urinary: Negative CVA Tenderness
Extremities: Negative Edema
Musculoskeletal: Negative Joint Swelling, Joint Effusion or Spinal Tenderness
Neurological: AO x 3; Negative Meningeal Signs
Lab / Diagnostic Study Results
12/16/23 06:30
12/16/23 06:30
Abs Immat Gran (auto) 0.6 10^3/uL (0-0.05) H 12/16/23 00:23
Absolute Neuts (auto) 3.1 10^3/uL (1.4-6.5) 12/16/23 00:23
Absolute Lymphs (auto) 0.1 10^3/uL (1.2-3.4) L 12/16/23 00:23
Absolute Monos (auto) 0.0 10^3/uL (0.1-0.6) L 12/16/23 00:23
Absolute Basos (auto) 0.0 10^3/uL (0-0.2) 12/16/23 00:23
Total Counted 100 12/16/23 06:30
Immature Gran % 15.5 % (0-0.5) H 12/16/23 00:23
Neutrophils % 79.8 % (42.2-75.2) H 12/16/23 00:23
Lymphocytes % 3.1 % (20.5-51.1) L 12/16/23 00:23
Monocytes % 1.0 % (1.7-9.3) L 12/16/23 00:23
Eosinophils % 0.3 % (0-6) 12/16/23 00:23
Basophils % 0.3 % (0-2) 12/16/23 00:23
Abs Neuts (Manual) 1.5 10^3/uL (1.4-6.5) 12/16/23 06:30
Segmented Neutrophils 81 % (42-75) H 12/16/23 06:30
Band Neutrophils 3 % (0-3) 12/16/23 06:30
Lymphocytes (Manual) 12 % (20-51) L 12/16/23 06:30
Eosinophils (Manual) 1 % (0-6) 12/16/23 06:30
Lactic Acid Cancelled 12/16/23 15:41
Microbiology Results
Micro:
12/16/23 00:23 Blood Culture - Pending
Blood/Venous
12/15/23 CXR: New left upper extremity PICC line in place with the catheter tip projecting over the right atrium. Continued interval decrease in size of an anterior mediastinal mass (biopsy proven non-Hodgkin's lymphoma). Mild elevation of the left
hemidiaphragm, minimal left pleural effusion, and mild subpleural subsegmental atelectasis in the left lower lobe which appears to have increased since 11/03/2023, but appears similar to 10/11/2023.
Assessment / Plan
#Diffuse large B cell lymphoma, mediastinal mass, malignant pericardial effusion, s/p 1st cycle R-EPOCH with neulasta, last received 12/14/23. On prophylactic acyclovir, bactrim, levofloxacin, fluconazole.
# Pancytopenia - due to chemo
# Chest pain - unclear etiology, previous work-up at [facility] negative; chest pain deemed due to chemo.
# Fever
- COVID neg, CXR no PNA, UA neg.
- DDX of fever: chemo-associated vs viral illness vs CLABSI (has PICC)
- Await blood cx.
- Ordered 2nd set of blood cx.
- Continue empiric Vanco/Zosyn pending blood cx's.
- Follow temps and CBC.
- Continue prophylactic acyclovir and fluconazole
- Resume PJP prophylaxis Bactrim DS MWF. (Zosyn is not effective against PJP)
- Hold prophylactic levofloxacin while on Zosyn.
[2023-12-16] MEDS: TYLENOL 650 MG PO ×2 (11:50→20:11)
--- NOTE | 2023-12-16 15:32 | CM ---
Addendum entered by Hoa Figueroa 12/16/23 15:43:
Patient currently ordered IV antimicrobials and antiviral medication with IVF.
ANTICIPATED DISCHARGE:
Possible home IV antibiotics, pending blood work.
Original Note:
CM reviewed patient's chart. Spoke with patient at bedside. CM introduced self and role. Other family members present in the room as well. Patient is currently on neutropenic precautions.
PCP: Dr. Onel Tucker at [facility] in [facility]. Patient would like her records sent to [facility] because her oncologist is there.
Pharmacy: [facility] in [place]
Living situation: Patient lives with her , and 2 small children. They are 2 and 5 years old. She has 13 steps to enter. She has family members and friends who offer support.
Finances: Patient is currently on disability due to actively receiving chemo treatments. She denied any positive SDOHs. She expressed that she is able to afford her housing, clothing, medications, utilities and transportation.
DME/Ambulation: Patient ambulates independently. She does not own any DME.
Transportation: Patient's will provide transportation once she is discharged. Patient drives only when she is feeling well. If she is not feeling wel, her provides her transportation.
Agreeable to home health care?: Yes, patient is currently with an infusion nurse at [facility]. They come out to her home and obtain blood work from her.
ANTICIPATED DISCHARGE DISPOSITION:
Return to home with family and services with [facility], when medically cleared.
CM will continue to follow case and available for further assistance.
--- NOTE | 2023-12-16 16:55 | CON.ONC ---
Impression
Impression
Atypical chest pain
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
Pancytopenia
Fever
Plan
Plan
Chest pain may be due to chemo - possible vincristine which can cause neuropathic pain, underlying disease centered in chest, muscle spasm
Since pain was able to be 'massaged out,' will give course of empiric Flexeril.
CXR shows improvement in size of mediastinal mass.
Abx as per ID.
For pain, TID gabapentin and QID oxycodone and PRN Tylenol.
Thank you for consult, will follow along with you.
Patient History
History of Present Illness
This is a 38 year old female with large cell lymphoma, begin treated with R-EPOCH at [facility], Dr. Onel Tucker. She just received her fourth cycle. Beginning the day after treatment, she experienced onset of sharp pain. This had happened with
previous cycles but was worse this time. She underwent a complete w/u at [facility] yesterday with no etiology identified. She returned home but when she got home she started with a fever and came to the [facility] ED. Here, she was noted
to have temp of 100.7 with WBC 1.9. Fevers have continued intermittently since admission. The pain has been unrelated to foods, steroids, position. She states that today she had pain in area of R lower ribs or R costosternal angle but she was able
to 'massage it out.' She has cyclobenzaprine at home, thinks she tried it once for the chest pain in the past without relief. Denies localizing signs/symptoms for the pain.
Past-Medical/Surgical History
Past Medical History: Cancer (Large B cell Lymphoma. ), Other (Migraines, Neuropathy, DVT, Malignant Pericardial effusion, Pericardiocentesis) and Other (migraines )
Past Surgical History: (X1), Gynecological (Uterine polyp removed) and Other (Thoracic surgical mass in chest)
Social History
Tobacco: Non-smoker
Alcohol: None
Drug: None
Personal:
Living: with family
Family History: Non-contributory
Patient Medication
�Medication �Instructions �Recorded �Confirmed �Last Taken �Type
Lactobac no.2-Bifidobac no.1-S. 1 cap PO DAILY Gastrointestinal 10/11/23 12/15/23 Unknown History
thermo 112.5 billion cell capsule Issue
(Visbiome)
acyclovir 400 mg tablet 400 mg PO BID prophylaxis 10/11/23 12/15/23 Unknown History
fluconazole 200 mg tablet 400 mg PO DAILY prophylaxis 10/11/23 12/15/23 Unknown History
gabapentin 300 mg capsule 300 mg PO TID Pain 10/11/23 12/15/23 10/11/23 History
levofloxacin 500 mg tablet 500 mg PO DAILY prophylaxis 10/11/23 12/15/23 Unknown History
loratadine 10 mg tablet (Claritin) 10 mg PO DAILYPRN PRN the day of 10/11/23 12/15/23 Unknown History
and 3 day after injection
rizatriptan 10 mg disintegrating 0 mg PO .COMPLEX PRN headache 10/11/23 12/15/23 Unknown History
tablet
sulfamethoxazole 800 1 tab PO MOWEFR prophylaxis 10/11/23 12/15/23 10/09/23 History
mg-trimethoprim 160 mg tablet
(Bactrim DS)
therapeutic multivitamin 1 tab PO DAILY Supplement 10/11/23 12/15/23 Unknown History
rivaroxaban 20 mg tablet (Xarelto) 20 mg PO QPM Blood clot 10/19/23 12/15/23 Unknown Rx
prevention/tx #30 tabs
oxycodone 5 mg tablet 10 mg PO QID Pain 12/15/23 12/15/23 Unknown History
Active Medications
Generic Name Dose Route Start Last Admin
Trade Name Freq PRN Reason Stop Dose Admin
Acetaminophen 650 mg 12/16/23 03:41 12/16/23 11:50
Acetaminophen 325 Mg Tablet PO 01/13/24 03:40 650 mg
Q4HPRN PRN Administration
CRUZ/mild pain/temp > 100.4 F
Acetaminophen 650 mg 12/16/23 03:41
Acetaminophen 650 Mg Rectal Suppository RECTAL 01/13/24 03:40
Q4HPRN PRN
CRUZ/ mild pain/ temp >/= 100.4F
Acyclovir Sodium 400 mg 12/16/23 08:00 12/16/23 08:27
Acyclovir Sodium 200 Mg Capsule PO 01/13/24 07:59 400 mg
BID PATRICK Administration
Fluconazole 400 mg 12/16/23 08:00 12/16/23 08:27
Fluconazole 200 Mg Tablet PO 12/26/23 07:59 400 mg
DAILY PATRICK Administration
Gabapentin 300 mg 12/16/23 08:00 12/16/23 16:39
Gabapentin 300 Mg Capsule PO 01/13/24 07:59 300 mg
TID PATRICK Administration
Piperacillin Sod/Tazobactam Sod 3.375 gram in 50 mls @ 100 mls/hr 12/16/23 06:00 12/16/23 11:51
Zosyn IV 50 mls
Q6H PATRICK Administration
Sodium Chloride 1,000 mls @ 100 mls/hr 12/16/23 03:41 12/16/23 15:05
Nss IV 1,000 mls
.Q10H PATRICK Administration
Vancomycin HCl 1 gram in 200 mls @ 200 mls/hr 12/16/23 18:00
Vancocin IV
Q12H PATRICK
Protocol
Lactobacillus/Bifidobacterium 1 cap 12/16/23 08:00 12/16/23 08:27
Lactobac/Bifidobac (Visbiome) PO 01/13/24 07:59 1 cap
DAILY PATRICK Administration
Loratadine 10 mg 12/16/23 03:41
Loratadine 10 Mg Tablet PO 01/13/24 03:40
DAILYPRN PRN
the day of and 3 day after inj
Oxycodone HCl 10 mg 12/16/23 08:00 12/16/23 12:00
Oxycodone 10 Mg Regular Release Tablet PO 12/30/23 07:59 10 mg
QID PATRICK Administration
Rivaroxaban 20 mg 12/16/23 18:00
Rivaroxaban 20 Mg Tablet PO 01/13/24 17:59
QPM PATRICK
Rizatriptan Benzoate 0 mg 12/16/23 03:41
Rizatriptan 10 Mg (Orally Disintegrating) Tablet PO 01/13/24 03:40
.COMPLEX PRN
headache
Sodium Chloride 0 flush 12/16/23 02:00
Sodium Chloride 0.9% (Flush) Syringe IV 01/13/24 01:59
PER PROTOCOL PATRICK
Trimethoprim/Sulfamethoxazole 1 tablet 12/18/23 08:00
Sulfamethoxazole (800 Mg)/Trimethoprim (160 Mg) Tablet PO
MOWEFR PATRICK
Review of Systems
-
History Source: Patient and Records
All Other Systems: Reviewed and Negative
Constitutional: Reports Fever
EENT: Reports No Symptoms
Respiratory: Reports Pleurisy
Cardiac: Reports Chest Pain
GI: Reports No Symptoms
Breast: Reports No Symptoms
: Reports No Symptoms
Musculoskeletal: Reports No Symptoms
Skin: Reports Itching and Other (experiences itching and tingling when off 5-day course of steroids)
Neuro: Reports No Symptoms
Endocrine: Reports No Symptoms
Hematologic/Lymphatic: Reports No Symptoms
Allergy / Immunology: Reports No Symptoms
Psych: Reports No Symptoms
Physical Exam
-
General: Well Developed and Well Nourished
HEENT: Moist Mucous Membranes; Negative Jaundice
Cardiology: Normal Sinus Rhythm, S1 and S2
Pulmonary: Clear; Negative Wheezes
GI: Soft and Normal Bowel Sounds
Musculoskeletal: No Clubbing, No Cyanosis and No Edema
Extremities: No C/C/E
Neurology: Non Focal
Skin: Warm and Dry
Hematologic / Lymphatic: No Lymphadenopathy
Psych: Calm and Intact Judgement/Insight
Labs
Lab Results
WBC 1.9 10^3/uL (4.8-10.8) L* 12/16/23 06:30
RBC 2.29 10^6/uL (4.20-5.40) L 12/16/23 06:30
Hgb 7.1 g/dL (12.0-16.0) L 12/16/23 06:30
Hct 20.4 % (37.0-47.0) L* 12/16/23 06:30
MCV 89.1 fL (81.0-99.0) 12/16/23 06:30
MCH 31.0 pg (27.0-31.0) 12/16/23 06:30
MCHC 34.8 g/dL (33.0-37.0) 12/16/23 06:30
RDW 19.7 % (11.5-14.5) H 12/16/23 06:30
Plt Count 104 10^3/uL (130-400) L 12/16/23 06:30
MPV 11.0 fL (7.4-10.4) H 12/16/23 06:30
Abs Immat Gran (auto) 0.6 10^3/uL (0-0.05) H 12/16/23 00:23
Absolute Neuts (auto) 3.1 10^3/uL (1.4-6.5) 12/16/23 00:23
Absolute Lymphs (auto) 0.1 10^3/uL (1.2-3.4) L 12/16/23 00:23
Absolute Monos (auto) 0.0 10^3/uL (0.1-0.6) L 12/16/23 00:23
Absolute Eos (auto) 0.0 10^3/uL (0-0.7) 12/16/23 00:23
Absolute Basos (auto) 0.0 10^3/uL (0-0.2) 12/16/23 00:23
Immature Gran % 15.5 % (0-0.5) H 12/16/23 00:23
Neutrophils % 79.8 % (42.2-75.2) H 12/16/23 00:23
Lymphocytes % 3.1 % (20.5-51.1) L 12/16/23 00:23
Monocytes % 1.0 % (1.7-9.3) L 12/16/23 00:23
Eosinophils % 0.3 % (0-6) 12/16/23 00:23
Basophils % 0.3 % (0-2) 12/16/23 00:23
Creatinine 0.6 mg/dL (0.6-1.0) 12/16/23 06:30
CT chest 09/25/23: large anterior mediastinal mass measuring 10.6 cm, large pericardial effusion
Vital Signs
Vital Signs
Temp Pulse Resp BP Pulse Ox
98.1 F 107 16 115/65 98
12/16/23 15:00 12/16/23 15:00 12/16/23 15:00 12/16/23 15:00 12/16/23 15:00
[2023-12-16] MEDS: XARELTO 20 MG PO (17:03)
[2023-12-16] MEDS: SENOKOT 8.6 MG PO (21:12)
[2023-12-16] MEDS: FLEXERIL 5 MG PO (21:59)
[2023-12-17] VITALS (8 sets, daily range): BP systolic 102–118; BP diastolic 64–80; BMI 23.8
[2023-12-17] MEDS: NSS 1000 IV ×2 (02:35→12:24)
[2023-12-17] MEDS: MORPHINE SULFATE 1 MG IV (03:01)
[2023-12-17] MEDS: TYLENOL 650 MG PO (04:35)
[2023-12-17] MEDS: CLARITIN 10 MG PO (04:42)
[2023-12-17] MEDS: ZOSYN 50 IV ×2 (04:42→11:29)
[2023-12-17] MEDS: DILAUDID 0.5 MG IV (05:02)
[2023-12-17] MEDS: VANCOCIN 200 IV (05:25)
--- NOTE | 2023-12-17 07:47 | W.PN.HOSP.TC ---
Addendum entered and electronically signed by Franklin Wade MD 12/17/23 22:44:
Attending Addendum-
I saw and evaluated the patient. I reviewed the resident�s note and agree with findings and plan as documented in the resident�s note. Sub: still febrile. no localizing sxs for infection. No further CP. Full 12 point ROS reviewed and negative except
as documented Exam: Vitals reviewed in chart GEN-NAD heart RRR lungs clear abd soft LE no edema LUE PICC in place
#Neutropenic Fever/Sepsis- no source identified yet
- ANC now < 400
- follow blood cx- NGTD
- check UA and cxr- personally reviewed no acute CP process - smaller med mass
- transition vanco and zosyn to cefepime
- Supportive care:IVFs, antipyretics, pain control
- ID input appreciated
# Diffuse large B-cell lymphoma.
Normocytic Anemia
Recently completed Chemo ( 12/07/23 to 12/11/23)
- Currently followed at [facility]
- Continue prophylactic fluconazole and acyclovir and bactrim
- Levaquin on hold while on cefepime
# Acute Anemia
- from chemo
- received Neulasta
- Transfuse 2 units PRBC 12/16
- Continue to follow daily CBC
# Chronic Pain with narcotic dependence-
- cont standing oxy
- increase prn dilaudid
# H/O Pulmonary Emboli/DVT
- RUE DVT - Catheter Associated- removed
- Stable.
- Patient reports tongue swelling that started after Eliquis.
- cont Xarelto
# Migraine
- cont rivatripan prn
DVT Px: Xarelto
Code: Full
Time spent coordinating care, review of plan of care with resident, personally reviewed records in EMR, med rec, consults, notes, labs, radiology, d/w nursing � 57 mins
Original Note:
Today's Communication/Plan
-
Continue with Cefepime and prophylactic Abx. C/w current pain medication & dilaudid. Monitor temp overnight and check ANC in the AM
Assessment / Plan
Assessment / Plan
38 yo F with a PMHx of Diffuse large B-cell lymphoma currently on Chemotherapy (last round 12/13) presented to the ED with fever and chest pain
##SIRS without evidence for acute end organ damage; unknown etiology, likely secondary to Chemotherapy
#Pancytopenia
#Severe Neutropenia
- Febrile to 100.7F, HR 109, PICC line LUE as a possible source, WBCs 1.9, Hgb 7.1, Plt 109
- Empiric Vancomycin/Zosyn, switched to Cefepime.
- CXR (-), UA (-), COVID (-)
- B/Cx drawn, negative at 24 hours.
- ANC 400.
- Monitor in the AM; monitor for ANC of >1000.
#Chest pain, most likely multifactorial (musculoskeletal + side effect from chemotherapy)
- Reproducible on exam, not associated with exertion
- ECG unremarkable
- Pain much improved with QID Oxycodone 10mg
- Added Flexeril 7.5mg Q8H
- Increased Dilaudid 1mg Q3H PRN for breakthrough pain
- C/w current pain regimen & re-evaluate in the AM
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
- S/p 1 unit PRBC at [facility] immediately prior to admission
- Hgb in the AM 6.2; Type & cross w/ 2U PRBC scheduled. Repeat CBC in the AM.
- Continue to monitor; transfuse if needed for Hgb <7
#Diffuse Large B-Cell Lymphoma
- Being followed outpatient at [facility]
- Undergoing treatment with R-EPOCH and Neulasta
- Continue with prophylactic fluconazole, Acyclovir, and Bactrim (PJP PPx)
- Prophylactic Levofloxacin on hold while on Zosyn
- Heme/Onc following
#History of Pulmonary Emboli
#HX of Right Upper Extremity DVT (catheter associated)
- Allergy to Eliquis
- On Xarelto for DVT PPx
#Neuropathic Pain, chronic
- C/w gabapentin 300mg TID
#Migraine
- Rizatriptan PRN for Migraine symptoms
Dispo: Telemetry
Diet: Regular
DVT Ppx: on Xarelto
Code: Full Code
Anticipated Discharge: 24 - 48 hours
Subjective/Interval History
-
Experienced a return of chest pain over night and a fever spike of 100.6 for which she was given tylenol which helped. She is not experiencing any new sore throat, runny nose, cough, shortness of breath, lightheadedness, palpitations, abdominal
pain, Nausea/Vomiting, diarrhea, bloody stools, burning when urinating or urinary discharge.
Objective Data
-
Vital Signs:
Vital Signs
Temp Pulse Resp BP Pulse Ox
99.8 F 104 20 105/65 100
12/17/23 03:07 12/17/23 03:07 12/17/23 03:07 12/17/23 03:07 12/17/23 03:07
I&O
12/16/23 12/17/23 12/18/23
06:59 06:59 06:59
Intake Total 1650 / 1650 3430 / 3430
Balance 1650 / 1650 3430 / 3430
[2023-12-17] MEDS: FLEXERIL 5 MG PO ×3 (07:48→21:06)
[2023-12-17] MEDS: ZOVIRAX 400 MG PO ×2 (07:48→19:26)
[2023-12-17] MEDS: VISBIOME 1 CAP PO (07:49)
[2023-12-17] MEDS: ROXICODONE 10 MG PO ×4 (07:52→21:06)
[2023-12-17] MEDS: NEURONTIN 300 MG PO ×3 (07:53→21:06)
[2023-12-17] MEDS: DIFLUCAN 400 MG PO (07:53)
[2023-12-17 08:52] LABS: Hematocrit 18.5 % (37.0-47.0); Hemoglobin 6.2 g/dL (12.0-16.0); Mean Corp Hgb Conc. 33.5 g/dL (33.0-37.0); Mean Corpuscular Hgb 30.2 pg (27.0-31.0); Mean Corpuscular Volume 90.2 fL (81.0-99.0); Red Blood Cell Count 2.05 10^6/uL (4.20-5.40); Red Cell Dist. Width 18.7 % (11.5-14.5); White Blood Cell Count 0.5 10^3/uL (4.8-10.8)
[2023-12-17 09:25] LABS: ALT (SGPT) 21 U/L (0-35); AST (SGOT) 16 U/L (14-36); Albumin 2.8 g/dl (3.5-5.0); Alkaline Phosphatase 48 U/L (38-126); Blood Urea Nitrogen 11 mg/dl (7-17); Calcium 7.7 mg/dl (8.4-10.2); Carbon Dioxide 24 mmol/L (22-30); Chloride 108 mmol/L (98-107); Estimated Creatinine Clearance 97 ml/min; Glucose 138 mg/dl (70-99); Potassium 3.5 mmol/L (3.5-5.1); Sodium 139 mmol/L (135-145); Total Bilirubin 0.4 mg/dl (0.2-1.3); Total Protein 4.7 g/dl (6.3-8.2); eGFR > 60.00
[2023-12-17 09:36] LABS: Mean Platelet Volume 12.4 fL (7.4-10.4); Platelet Count 80 10^3/uL (130-400)
[2023-12-17 09:37] LABS: Anisocytosis 1+; Band Neutrophils 1 % (0-3); Eosinophils 1 % (0-6); Hypochromasia 1+; Lymphocytes 14 % (20-51); Macrocytosis Slight; Monocytes 2 % (2-9); Normal RBC Morphology No; Platelets Checked Yes; Segmented Neutrophils 82 % (42-75); Total Cells Counted 100
[2023-12-17 09:38] LABS: Absolute Neutrophils -Man Diff 0.4 10^3/uL (1.4-6.5)
--- NOTE | 2023-12-17 12:11 | W.PN.ID1 ---
Date of Service
Date of Service: December 17, 2023
Today's Communication
Narrow abx's to cefepime.
Assessment / Plan
#Diffuse large B cell lymphoma, mediastinal mass, hx malignant pericardial effusion, s/p 1st cycle R-EPOCH with neulasta, last received 12/14/23. On prophylactic acyclovir, bactrim, levofloxacin, fluconazole.
# Neutropenic fever
# Pancytopenia due to chemo
# Chest pain - due to chemo , per hem/onc
- Fever trending down
- COVID neg, CXR no PNA, UA neg.
- Blood cx negative to date.
- DDX of fever: chemo-associated vs viral illness
- DC Vancomycin
- Narrow Zosyn to cefepime 2gIV q8h.
- Follow temps and bone-marrow recovery
- Continue prophylactic acyclovir, fluconazole, Bactrim.
Chief Complaint
-: Fever
Subjective / Review of Systems
No new sxs. Still with chest pain.
Vital Signs / Physical Exam
Vital Signs
Vital Signs
Temp Pulse Resp BP Pulse Ox
99.1 F 104 14 102/64 97
12/17/23 11:20 12/17/23 11:20 12/17/23 11:20 12/17/23 11:20 12/17/23 11:20
Physical Exam
Constitutional: No Acute Distress and Comfortable
Oropharyngeal: Benign
Cardiovascular: Other (tachycardic)
Pulmonary: Clear
Gastrointestinal: Soft, Non Tender, Non Distended and Normal Bowel Sounds
Extremities: Negative Edema
Neurological: AO x 3
Objective Data
Lab Data
Lab Results
12/17/23 08:29
Estimated Creat Clear 97 ml/min 12/17/23 08:29
Lactic Acid Cancelled 12/16/23 15:41
Total Bilirubin 0.4 mg/dl (0.2-1.3) 12/17/23 08:29
AST 16 U/L (14-36) 12/17/23 08:29
ALT 21 U/L (0-35) 12/17/23 08:29
Alkaline Phosphatase 48 U/L (38-126) 12/17/23 08:29
Most recent labs reviewed.
Micro Results:
12/16/23 00:23 Blood Culture - Preliminary
Blood/Venous No Growth in 24 hours- Final report to follow
12/16/23 12:21 Blood Culture - Pending
Blood/Venous
12/15/23 CXR: New left upper extremity PICC line in place with the catheter tip projecting over the right atrium. Continued interval decrease in size of an anterior mediastinal mass (biopsy proven non-Hodgkin's lymphoma). Mild elevation of the left
hemidiaphragm, minimal left pleural effusion, and mild subpleural subsegmental atelectasis in the left lower lobe which appears to have increased since 11/03/2023, but appears similar to 10/11/2023.
[2023-12-17] MEDS: MAXIPIME 2000 MG IV (17:37)
[2023-12-17] MEDS: STERILE WATER FOR INJECTION 10 ML IV (17:37)
[2023-12-17] MEDS: XARELTO 20 MG PO (17:38)
--- NOTE | 2023-12-17 20:48 | W.PN.ONC2 ---
Today's Communication / Plan
-
Continue current regimen for pain.
Will observe on Flexeril for another day but would then d/c if not clearly providing benefit.
ANC now 400, may take some time to recover. Received Neulasta.
Abx as per ID.
Impression
Impression
Atypical chest pain
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
Pancytopenia
Fever
Plan
Plan
Chest pain may be due to chemo - possible vincristine which can cause neuropathic pain, underlying disease centered in chest, muscle spasm
Since pain was able to be 'massaged out,' will give course of empiric Flexeril.
CXR shows improvement in size of mediastinal mass.
Abx as per ID.
For pain, TID gabapentin and QID oxycodone and PRN Tylenol.
Subjective/Objective
Chief Complaint
Lymphoma on R-EPOCH, chemo-related cytopenias
Subjective
Started Flexeril this am for possible muscle spasm component of chest pain. Chest pain has been a little better today. She is not sure about last fever but denies localized infectious symptoms.
Vital Signs:
Vital Signs
Temp Pulse Resp BP Pulse Ox
100.1 F 104 17 116/70 100
12/17/23 19:18 12/17/23 19:18 12/17/23 19:18 12/17/23 19:18 12/17/23 19:18
Tm 100.6 12/15 19:51
Lab Results:
Laboratory Data
WBC 0.5 10^3/uL (4.8-10.8) L* 12/17/23 08:29
Hgb Cancelled 12/17/23 12:00
Plt Count 80 10^3/uL (130-400) L D 12/17/23 08:29
eGFR > 60.00 12/17/23 08:29
Physical Exam
HEENT: Moist Mucous Membranes; No Jaundice
Cardiology: Normal Sinus Rhythm, S1 and S2
Pulmonary: Clear; No Wheezes
GI: Soft and Normal Bowel Sounds
Extremities: No C/C/E
Neuro: Non Focal
Review of Systems
Review of Systems
Negative in detail except as per HPI
Orders
Orders
Orders From Last 24 Hours
12/16/23 22:00
Cyclobenzaprine HCl [Flexeril] 5 mg PO TID
[2023-12-17] MEDS: SENOKOT 8.6 MG PO (21:06)
[2023-12-18] VITALS (11 sets, daily range): BP systolic 101–121; BP diastolic 30–79; BMI 24.2
[2023-12-18] MEDS: STERILE WATER FOR INJECTION 10 ML IV ×2 (01:05→10:45)
[2023-12-18] MEDS: DILAUDID 1 MG IV (01:05)
[2023-12-18] MEDS: MAXIPIME 2000 MG IV ×2 (01:05→10:44)
[2023-12-18 07:28] LABS: ALT (SGPT) 23 U/L (0-35); AST (SGOT) 20 U/L (14-36); Albumin 3.1 g/dl (3.5-5.0); Alkaline Phosphatase 56 U/L (38-126); Blood Urea Nitrogen 14 mg/dl (7-17); Calcium 8.9 mg/dl (8.4-10.2); Carbon Dioxide 28 mmol/L (22-30); Chloride 104 mmol/L (98-107); Estimated Creatinine Clearance 113 ml/min; Glucose 88 mg/dl (70-99); Potassium 4.2 mmol/L (3.5-5.1); Sodium 138 mmol/L (135-145); Total Bilirubin 0.7 mg/dl (0.2-1.3); Total Protein 5.3 g/dl (6.3-8.2); eGFR > 60.00
[2023-12-18] MEDS: FLEXERIL 5 MG PO ×3 (07:29→21:31)
[2023-12-18] MEDS: NEURONTIN 300 MG PO ×3 (07:29→21:31)
[2023-12-18] MEDS: ROXICODONE 10 MG PO ×4 (07:31→21:31)
[2023-12-18] MEDS: ZOVIRAX 400 MG PO ×2 (07:31→20:07)
[2023-12-18] MEDS: BACTRIM DS 800 MG/160 MG 1 TABLET PO (07:31)
[2023-12-18] MEDS: VISBIOME 1 CAP PO (07:32)
[2023-12-18] MEDS: DIFLUCAN 400 MG PO (07:32)
--- NOTE | 2023-12-18 07:54 | W.PN.HOSP.TC ---
Today's Communication/Plan
-
OK to discharge on home medications pending tolerance of Fentanyl patch. To see Oncologist within the week to follow up on chronic cancer pain management.
Assessment / Plan
Assessment / Plan
38 yo F with a PMHx of Diffuse large B-cell lymphoma currently on Chemotherapy (last round 12/13) presented to the ED with fever and chest pain
##Neutropenic Fever/Sepsis without evidence for acute end organ damage; unknown etiology
#Pancytopenia
#Severe Neutropenia
- Febrile to 100.7F, HR 109, PICC line LUE as a possible source, WBCs 1.9, Hgb 7.1, Plt 109
- Empiric Vancomycin/Zosyn, switched to Cefepime.
- CXR (-), UA (-), COVID (-)
- B/Cx drawn, negative at 24 hours.
- ANC 400, today 200
- Afebrile overnight, OK to follow up as outpatient with cancer center & continue PPx as described below
#Chronic Severe cancer pain
- not relieved by other prescription medication
- Increased Dilaudid 1mg Q3H PRN for breakthrough pain with minimal effect
- Given Fentanyl Patch 25mcg/hr, to be removed in 72 hours
- Follow up outpatient with Oncology team to manage pain symptoms
#Acute Normocytic Anemia, secondary to Neulasta
- S/p 1 unit PRBC at [facility] immediately prior to admission
- Hgb in the AM 6.2; Type & cross w/ 2U PRBC scheduled. Repeat Hgb 8.9
- Continue to monitor; transfuse if needed for Hgb <7
- Stable; OK to discharge.
#Diffuse Large B-Cell Lymphoma
- Being followed outpatient at [facility]
- Undergoing treatment with R-EPOCH and Neulasta
- Continue with prophylactic fluconazole, Acyclovir, and Bactrim (PJP PPx)
- Prophylactic Levofloxacin on hold while on Cefepime
- Follow up Outpatient with Oncologist for continued management of Chemo
#History of Pulmonary Emboli
#HX of Right Upper Extremity DVT (catheter associated)
- Allergy to Eliquis
- On Xarelto for DVT PPx
#Neuropathic Pain, chronic
- C/w gabapentin 300mg TID
#Migraine
- Rizatriptan PRN for Migraine symptoms
Dispo: Telemetry
Diet: Regular
DVT Ppx: on Xarelto
Code: Full Code
Anticipated Discharge: Today
Subjective/Interval History
-
Seen in the AM. Had episode of continuing pain overnight for which newly increased dose of dilaudid pain medication did not help. She had no fevers overnight and felt had no symptoms. She has no acute complaints other than pain.
Objective Data
-
Labs:
Laboratory Results
12/18/23
06:28
WBC Pending
Hgb Pending
Hct Pending
Plt Count Pending
Sodium 138
Potassium 4.2
Chloride 104
Carbon Dioxide 28
BUN 14
Creatinine 0.6
Glucose 88
Calcium 8.9
Total Bilirubin 0.7
AST 20
ALT 23
Alkaline Phosphatase 56
Vital Signs:
Vital Signs
Temp Pulse Resp BP Pulse Ox
98.8 F 83 16 107/71 96
12/18/23 04:06 12/18/23 04:06 12/18/23 04:06 12/18/23 04:06 12/18/23 04:06
I&O
12/17/23 12/18/23 12/19/23
06:59 06:59 06:59
Intake Total 3430 / 3430 3990 / 3990
Balance 3430 / 3430 3990 / 3990
Review of Systems
-
History Source: Patient
All other systems: Reviewed and negative
Constitutional: Reports No Symptoms
EENT: Reports No Symptoms Reported
Respiratory: Reports No Symptoms
Cardiac: Reports Chest Pain
Abdomen/GI: Reports No Symptoms
Breast: Reports No Symptoms
Genitourinary: Reports No Symptoms
Musculoskeletal: Reports No Symptoms
Skin: Reports No Symptoms
Neuro: Reports No Symptoms
Physical Exam
-
General: Well Developed, Well Nourished, No Apparent Distress and Pain
HEENT: Normocephalic, Atraumatic, Moist Mucous Membranes, Anicteric, [place] Conjunctivae and PERRLA
Respiratory: Clear to Auscultation
Cardiac: Regular Rhythm and S1/S2
Breast: Deferred by me
GI: Soft, Nontender, Nondistended and Normal Bowel Sounds
Musculoskeletal: No Clubbing, No Cyanosis, No Edema and Normal Gait & Station
Skin: IV Access / Catheter Site (PICC Line LUE, site clean dressing, no erythema, warmth, or discharge)
Neuro: Awake, Alert, Oriented and No Sensory Deficits
Hematologic / Lymphatic: No Lymphadenopathy
[2023-12-18 08:32] LABS: % Basophils 3.9 % (0-2); % Immature Granulocytes 5.9 % (0-0.5); % Lymphocytes 31.4 % (20.5-51.1); % Monocytes 21.6 % (1.7-9.3); % Neutrophils 35.2 % (42.2-75.2); Absolute Lymphocytes 0.2 10^3/uL (1.2-3.4); Absolute Monocytes 0.1 10^3/uL (0.1-0.6); Absolute Neutrophils 0.2 10^3/uL (1.4-6.5); Hematocrit 25.7 % (37.0-47.0); Hemoglobin 8.9 g/dL (12.0-16.0); Mean Corp Hgb Conc. 34.6 g/dL (33.0-37.0); Mean Corpuscular Hgb 30.4 pg (27.0-31.0); Mean Corpuscular Volume 87.7 fL (81.0-99.0); Mean Platelet Volume 9.8 fL (7.4-10.4); Nucleated Red Blood Cells % 0 %; Platelet Count 60 10^3/uL (130-400); Red Blood Cell Count 2.93 10^6/uL (4.20-5.40); Red Cell Dist. Width 17.3 % (11.5-14.5); White Blood Cell Count 0.5 10^3/uL (4.8-10.8)
[2023-12-18] MEDS: DURAGESIC 25 MCG/HR PATCH 1 PATCH TRANSDERM (10:48)
[2023-12-18] MEDS: FLUSH (NSS) 2 FLUSH IV (10:48)
--- NOTE | 2023-12-18 11:42 | PTCARENOTE ---
25mcg fentanyl patch placed on the right upper arm of this pt at 1030 this AM. Placement confirmed by second RN, pt made aware to notify nurse of any symptoms after medication was placed, whether positive or negative effects. MD aware of placement.
--- NOTE | 2023-12-18 11:51 | W.DCSUMMARY ---
Discharge Summary
Discharge Data
Date of Admission: 12/16/23
Date of Discharge: 12/19/23
-
Pending Results: No
Hospital Course
Discharging Physician : Dr. Frandy Tyson, Dr. Salvador Diamond
Disposition : Home
Primary care physician : Onel Tucker MD
Principal Discharge diagnosis : Neutropenic Fever, Acute Anemia, Chronic Pain
Chronic Discharge diagnosis : Diffuse Large B Cell Lymphoma, History of DVT/Pulmonary Emboli, Migraine
Hospital Course :
Crystal Sy is a 38 year old female with a history of recently diagnosed DLBCL who presented to the emergency room on 12/16/2023 with complaints of fever and severe chest pain following completion of her chemotherapy earlier in the day. Of note
she had recently received one unit of PRBCs. In the Emergency Department she was found to be febrile, tachycardic, and leukopenic. In the emergency department she was given antipyretics for her fever of 100.7F. Blood cultures were drawn, and serum
lactate, CBC w/ differential and CMP were also drawn. A Chest X-ray was done and her urine was sent for analysis. The patient was started on empiric antibiotics for presumed sepsis with (+) SIRS criteria and a possible source of infection from her
PICC line. Chest X-ray, Urinalysis and COVID swab were all negative. An ECG did not reveal any acute cardiac pathology and, given her symptomatology, the chest pain was deemed a consequence of chemotherapy. Prophylactic Levaquin was held while the
patient was on IV Vancomycin/Zosyn. Other prophylactic medication fluconazole, acyclovir and Bactrim were continued. She was continued on her Xarelto for DVT prophylaxis. Her other chronic conditions were managed on home medications.
Infectious Disease & Hematology/Oncology were consulted. She was admitted overnight to telemetry and managed as follows.
Hospital Day 1 (12/17/2023)
The patient had recurrent fevers overnight and was severely Neutropenic (ANC 400). At this time, blood cultures were still pending and the patient was still on antibiotics/antivirals/antifungals. She reported only severe chest pain at this time,
unchanged by current dosing of 10mg Oxycodone QID. Overnight she used Dilaudid 0.5mg IV twice for her breakthrough pain, but it did little to help. Infectious Disease was consulted and her empiric antibiotics were narrowed to Cefepime. AM CBC showed
Hgb of 6.2, for which a Type & Crossmatch was done and she was transfused 2 Units of PRBCs. Dilaudid was increased to 1mg IV PRN for pain. Hematology/Oncology recommended empiric Flexeril, which was started in the afternoon.
Hospital Day 2 (12/18/2023)
Pain was still minimally controlled on current regimen, and so a 25mcg/hr Fentanyl patch was ordered. The patient did not spike a fever overnight and at this point the blood cultures had yielded no growth. A repeat Hgb following yesterday's
transfusion showed a value of 8.9. No other medication changes were made at this time. The patient was found to be severely neutropenic (ANC 200) and was kept one more night.
Hospital day 3 (12/19/2023)
She remained afebrile overnight and reported moderate improvement of pain on fentanyl patch. There were no new symptoms reported. AM labs showed an increasing hgb of 9.9, an increasing WBC count of 1800 and an increasing absolute neutrophil count of
1300. She was instructed to follow up closely with her Oncology team at [facility] and a new pain medication regimen of Oxycodone 10mg TID w/ 20mg to be taken PRN for breakthrough pain was discussed with her. She was also provided a printout of all her
lab work from this current hospital stay. She was discharged home in the afternoon.
Important imaging findings :
CR Chest - 2 Views:
1. New left upper extremity PICC line in place with the catheter tip projecting over the right atrium.
2. Continued interval decrease in size of an anterior mediastinal mass (biopsy proven non-Hodgkin's lymphoma).
3. Mild elevation of the left hemidiaphragm, minimal left pleural effusion, and mild subpleural subsegmental atelectasis in the left lower lobe which appears to have increased since 11/03/2023, but appears similar to 10/11/2023.
Procedure findings :
N/A
Discharge Plan
-
Patient Disposition: Home (Routine Discharge)
Discharge Diagnosis/Procedures: Chemotherapy-induced anemia
Cancer related pain
Neutropenic fever
Condition: Fair
Diet: No restrictions
Activity: As tolerated
Additional Activity: Caution with driving while on opioid medications. Do not drive if you feel drowsy
Driving Restrictions: No driving for 24 hours
Bathing Restrictions: None
Blood Work: Follow-up with your oncologist for necessary blood work
Activity Restrictions/Additional Instructions:
Schedule follow-up appointment with your primary care doctor, oncologist, other specialist within 1 to 2 weeks after being discharged from the hospital.
Instructions: Neutropenia and fever in people being treated for cancer
Referrals:
Onel Tucker MD [Family Provider] -
Additional Discharge Medication Instructions: Continue fentanyl patch in place to complete 72 hours (remove at the end of the day on 12/20/2023)
Take oxycodone 10 mg every 6 hours as needed for moderate pain
Take oxycodone 20 mg as needed for severe breakthrough pain
Prescriptions:
New
cyclobenzaprine 10 mg Tablet
5 mg PO TID 3 Days Qty: 10 0RF
Remove Fentanyl Patch [Remove Duragesic Patch]
See Rx Instructions .ROUTE .COMPLEX Qty: 1 0RF
Rx Instructions:
Remove fentanyl patch evening of 12/20/23
oxycodone 10 mg tablet
10 mg PO Q8H PRN (Reason: Pain) 3 Days Qty: 14 0RF
Rx Instructions:
1 tab PRN every 8 hours for moderate pain
2 tabs PRN for severe pain
Continued
fluconazole 200 mg Tablet
400 mg PO DAILY
Patient Comments:
for 14 days starting 10/09/23
acyclovir 400 mg Tablet
400 mg PO BID
sulfamethoxazole-trimethoprim [Bactrim DS] 800-160 mg Tablet
1 tab PO MOWEFR
rizatriptan 10 mg Tablet,Disintegrating
0 mg PO .COMPLEX PRN (Reason: headache)
Rx Instructions:
take 1 tab at onset of headache; if no relief may repeat 1 tab after at least 2 hrs; max = 3 tabs/24 hr
gabapentin 300 mg Capsule
300 mg PO TID
levofloxacin 500 mg Tablet
500 mg PO DAILY
Patient Comments:
for 14 days starting 10/09/23
loratadine [Claritin] 10 mg Tablet
10 mg PO DAILYPRN PRN (Reason: the day of and 3 day after injection)
therapeutic multivitamin Tablet
1 tab PO DAILY
Visbiome 112.5 billion cell Capsule
1 cap PO DAILY
Xarelto 20 mg tablet
20 mg PO QPM Qty: 30 0RF
Rx Instructions:
Take after you finish 15 BID doses (after 20 days)
Held
oxycodone 5 mg tablet
10 mg PO QID
Hold Instructions: Resume on 12/23/23. Resume previous pain regimen after 3 days (on 12/23/2023)
Discharge Orders:
Discharge Patient (As Directed); Ordered 12/19/23
Ordered By: Salvador Diamond
Discharge Date and Time
Discharge Date/Time: 12/19/23 14:41
Print Language: SLOVAK
[2023-12-18] MEDS: MIRALAX 17 GRAMS PO (13:09)
[2023-12-18] MEDS: MAALOX 30 ML PO (14:11)
[2023-12-18] MEDS: PEPCID 40 MG PO (14:11)
--- NOTE | 2023-12-18 16:26 | W.PN.ID1 ---
Date of Service
Date of Service: December 18, 2023
Today's Communication
- DC cefepime.
-Resume prophylactic levofloxacin 500mg po daily
- Continue prophylactic acyclovir, fluconazole, Bactrim.
Assessment / Plan
#Diffuse large B cell lymphoma, mediastinal mass, hx malignant pericardial effusion, s/p 1st cycle R-EPOCH with neulasta, last received 12/14/23. On prophylactic acyclovir, bactrim, levofloxacin, fluconazole.
# Neutropenic fever
# Pancytopenia due to chemo
# Chest pain - due to chemo , per hem/onc
- DDX of fever: chemo-associated vs viral illness
- Fever resolved
- COVID neg, CXR no PNA, UA neg.
- Blood cx x2 negative to date.
- DC cefepime.
-Resume prophylactic levofloxacin 500mg po dailu
- Continue prophylactic acyclovir, fluconazole, Bactrim.
Chief Complaint
-: Fever
Subjective / Review of Systems
c/o urine smells.
Still with chest pain.
Vital Signs / Physical Exam
Vital Signs
Vital Signs
Temp Pulse Resp BP Pulse Ox
99.7 F 90 14 120/79 99
12/18/23 15:00 12/18/23 15:00 12/18/23 15:00 12/18/23 15:00 12/18/23 15:00
Physical Exam
Constitutional: No Acute Distress
Pulmonary: Clear
Gastrointestinal: Soft, Non Tender, Non Distended and Normal Bowel Sounds
Genito-Urinary: Negative CVA Tenderness
Extremities: Negative Edema
Neurological: AO x 3
Objective Data
Lab Data
Lab Results
12/18/23 06:28
12/18/23 06:28
Estimated Creat Clear 113 ml/min 12/18/23 06:28
Lactic Acid Cancelled 12/16/23 15:41
Total Bilirubin 0.7 mg/dl (0.2-1.3) 12/18/23 06:28
AST 20 U/L (14-36) 12/18/23 06:28
ALT 23 U/L (0-35) 12/18/23 06:28
Alkaline Phosphatase 56 U/L (38-126) 12/18/23 06:28
Most recent labs reviewed.
Micro Results:
12/16/23 12:21 Blood Culture - Preliminary
Blood/Venous No Growth in 48 hours- Final report to follow
12/16/23 00:23 Blood Culture - Preliminary
Blood/Venous No Growth in 48 hours- Final report to follow
12/15/23 CXR: New left upper extremity PICC line in place with the catheter tip projecting over the right atrium. Continued interval decrease in size of an anterior mediastinal mass (biopsy proven non-Hodgkin's lymphoma). Mild elevation of the left
hemidiaphragm, minimal left pleural effusion, and mild subpleural subsegmental atelectasis in the left lower lobe which appears to have increased since 11/03/2023, but appears similar to 10/11/2023.
[2023-12-18] MEDS: XARELTO 20 MG PO (17:18)
[2023-12-18] MEDS: SENOKOT 8.6 MG PO (21:31)
[2023-12-19 03:17] VITALS: BP 98/68
[2023-12-19 05:27] VITALS: BMI 24.0
[2023-12-19] MEDS: DIFLUCAN 400 MG PO (07:37)
[2023-12-19] MEDS: ROXICODONE 10 MG PO ×2 (07:37→13:49)
[2023-12-19] MEDS: LEVAQUIN 500 MG PO (07:37)
[2023-12-19] MEDS: VISBIOME 1 CAP PO (07:37)
[2023-12-19] MEDS: MIRALAX 17 GRAMS PO (07:42)
[2023-12-19] MEDS: FLEXERIL 5 MG PO (07:42)
[2023-12-19] MEDS: PEPCID 40 MG PO (07:43)
[2023-12-19] MEDS: NEURONTIN 300 MG PO (07:43)
[2023-12-19] MEDS: ZOVIRAX 400 MG PO (07:43)
[2023-12-19 07:52] VITALS: BP 107/71
--- NOTE | 2023-12-19 08:00 | PTCARENOTE ---
Failed hardware unit in POD 2 Pyxis, 0800 Flexeril not loaded in POD 1. Pt's Flexeril pulled from 2 [place] POD 2 Pyxis instead. 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
--- NOTE | 2023-12-19 08:54 | W.PN.ONC2 ---
Today's Communication / Plan
-
neutropenic precautions
transfuse Hgb <7g/dL or as needed for symptomatic anemia
transfuse platelet <10 or as needed for bleeding
continue empiric Levaquin, Bactrim, acyclovir, fluconazole
Continued OP management per primary oncologist upon discharge
Impression
Impression
Atypical chest pain
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
Pancytopenia
neutropenic Fever
Plan
Plan
Chest pain may be due to chemo +/- GCSF+/- other -[facility] evaluation with no etiology identified
CXR shows improvement in size of mediastinal mass.
Abx as per ID.
pain mangement
neutropenic precautions
transfuse Hgb <7g/dL or as needed for symptomatic anemia. s/p 2 unit prbc during hospitalization, last 12/17
transfuse platelet <10 or as needed for bleeding
continue empiric Levaquin, Bactrim, acyclovir, fluconazole
Subjective/Objective
Chief Complaint
afebrile, no hypoxia or hypotension
50mg oxycodone PO IR prn/24hours and cyclobenzaprine 20mg PO/24hours
continues gabepentin 300mg TID and fent patch 25mcg
not taking loratadine
taking pepcid 40mg daily
Subjective
no new complaints
Vital Signs:
Vital Signs
Temp Pulse Resp BP Pulse Ox
98.3 F 92 18 107/71 97
12/19/23 07:52 12/19/23 07:52 12/19/23 07:52 12/19/23 07:52 12/19/23 07:52
Lab Results:
Laboratory Data
WBC 0.5 10^3/uL (4.8-10.8) L* 12/18/23 06:28
Hgb 8.9 g/dL (12.0-16.0) L D 12/18/23 06:28
Plt Count 60 10^3/uL (130-400) L D 12/18/23 06:28
eGFR > 60.00 12/18/23 06:28
Physical Exam
HEENT: Moist Mucous Membranes; No Jaundice
Cardiology: Normal Sinus Rhythm, S1 and S2
Pulmonary: Clear; No Wheezes
GI: Soft and Normal Bowel Sounds
Extremities: No C/C/E
Neuro: Non Focal
Review of Systems
Review of Systems
ROS notable for subjective, otherwise negative
--- NOTE | 2023-12-19 10:16 | W.PN.ID1 ---
Date of Service
Date of Service: December 19, 2023
Today's Communication
ID will sign off.
Assessment / Plan
#Diffuse large B cell lymphoma, mediastinal mass, hx malignant pericardial effusion, s/p 1st cycle R-EPOCH with neulasta, last received 12/14/23. On prophylactic acyclovir, bactrim, levofloxacin, fluconazole.
# Neutropenic fever. Fever resolved
# Pancytopenia due to chemo
# Chest pain - due to chemo , per hem/onc
- No specific infectious etiology identified
- Fever resolved
- COVID neg, CXR no PNA, UA neg.
- Blood cx x2 negative to date.
- cefepime dc'd 12/17
-Continue prophylactic levofloxacin 500mg po daily
- Continue prophylactic acyclovir, fluconazole, Bactrim.
- Discussed neutropenic precautions.
ID will sign off.
Chief Complaint
-: Fever
Subjective / Review of Systems
Chest pain now tolerable. Urine no longer foul smelling.
Review of Systems: No Chills, No Headache, No Pharyngitis, No Cough, No Abdominal Pain, No Diarrhea and No Dysuria
Vital Signs / Physical Exam
Vital Signs
Vital Signs
Temp Pulse Resp BP Pulse Ox
98.3 F 92 18 107/71 97
12/19/23 07:52 12/19/23 07:52 12/19/23 07:52 12/19/23 07:52 12/19/23 09:05
Physical Exam
Constitutional: No Acute Distress
Cardiovascular: Regular Rate and S1/S2
Pulmonary: Clear
Gastrointestinal: Soft, Non Tender and Non Distended
Extremities: Negative Edema
Neurological: AO x 3
Objective Data
Lab Data
Estimated Creat Clear 113 ml/min 12/18/23 06:28
Lactic Acid Cancelled 12/16/23 15:41
Total Bilirubin 0.7 mg/dl (0.2-1.3) 12/18/23 06:28
AST 20 U/L (14-36) 12/18/23 06:28
ALT 23 U/L (0-35) 12/18/23 06:28
Alkaline Phosphatase 56 U/L (38-126) 12/18/23 06:28
Most recent labs reviewed.
Micro Results:
12/16/23 00:23 Blood Culture - Preliminary
Blood/Venous No Growth in 72 hours- Final report to follow
12/16/23 12:21 Blood Culture - Preliminary
Blood/Venous No Growth in 48 hours- Final report to follow
12/15/23 CXR: New left upper extremity PICC line in place with the catheter tip projecting over the right atrium. Continued interval decrease in size of an anterior mediastinal mass (biopsy proven non-Hodgkin's lymphoma). Mild elevation of the left
hemidiaphragm, minimal left pleural effusion, and mild subpleural subsegmental atelectasis in the left lower lobe which appears to have increased since 11/03/2023, but appears similar to 10/11/2023.
[2023-12-19 10:44] LABS: Hematocrit 28.7 % (37.0-47.0); Hemoglobin 9.9 g/dL (12.0-16.0); Mean Corp Hgb Conc. 34.5 g/dL (33.0-37.0); Mean Corpuscular Hgb 30.2 pg (27.0-31.0); Mean Corpuscular Volume 87.5 fL (81.0-99.0); Mean Platelet Volume 11.7 fL (7.4-10.4); Platelet Count 68 10^3/uL (130-400); Red Blood Cell Count 3.28 10^6/uL (4.20-5.40); Red Cell Dist. Width 17.5 % (11.5-14.5); White Blood Cell Count 1.8 10^3/uL (4.8-10.8)
[2023-12-19 11:01] LABS: ALT (SGPT) 25 U/L (0-35); AST (SGOT) 22 U/L (14-36); Albumin 3.7 g/dl (3.5-5.0); Alkaline Phosphatase 64 U/L (38-126); Blood Urea Nitrogen 12 mg/dl (7-17); Calcium 9.1 mg/dl (8.4-10.2); Carbon Dioxide 28 mmol/L (22-30); Chloride 100 mmol/L (98-107); Estimated Creatinine Clearance 97 ml/min; Glucose 93 mg/dl (70-99); Potassium 4.3 mmol/L (3.5-5.1); Sodium 139 mmol/L (135-145); Total Bilirubin 0.3 mg/dl (0.2-1.3); Total Protein 5.8 g/dl (6.3-8.2); eGFR > 60.00
[2023-12-19 11:03] LABS: Absolute Neutrophils -Man Diff 1.3 10^3/uL (1.4-6.5); Anisocytosis 1+; Band Neutrophils 0 % (0-3); Hypochromasia 1+; Lymphocytes 22 % (20-51); Macrocytosis Slight; Monocytes 2 % (2-9); Normal RBC Morphology No; Platelets Checked Yes; Segmented Neutrophils 76 % (42-75); Total Cells Counted 100
[2023-12-19 11:15] VITALS: BP 119/85
--- NOTE | 2023-12-19 12:14 | CM ---
Patient seen at bedside.
ID signed off.
--- NOTE | 2023-12-19 12:15 | CM ---
Patient seen at bedside.
ID signed off.
No needs anticipated.
PLAN: Discharge to home when stable. No needs anticipated.
States will uber for transport.
--- NOTE | 2023-12-19 13:42 | W.PN.HOSP.TC ---
Today's Communication/Plan
-
D/c on current fentanyl patch & oxycodone pain medication. Instructions to follow up with Oncologist at [facility] to update.
Assessment / Plan
Assessment / Plan
38 yo F with a PMHx of Diffuse large B-cell lymphoma currently on Chemotherapy (last round 12/13) presented to the ED with fever and chest pain
##Neutropenic Fever/Sepsis without evidence for acute end organ damage; unknown etiology
#Pancytopenia
#Severe Neutropenia
- Febrile to 100.7F, HR 109, PICC line LUE as a possible source, WBCs 1.9, Hgb 7.1, Plt 109
- Empiric Vancomycin/Zosyn, switched to Cefepime.
- CXR (-), UA (-), COVID (-)
- B/Cx drawn, negative at 24 hours.
- ANC 400, today 200
- Afebrile overnight, OK to follow up as outpatient with cancer center & continue PPx as described below
#Chronic Severe cancer pain
- not relieved by other prescription medication
- Increased Dilaudid 1mg Q3H PRN for breakthrough pain with minimal effect
- Given Fentanyl Patch 25mcg/hr, to be removed in 72 hours
- Follow up outpatient with Oncology team to manage pain symptoms
#Acute Normocytic Anemia, secondary to Neulasta
- S/p 1 unit PRBC at [facility] immediately prior to admission
- Hgb in the AM 6.2; Type & cross w/ 2U PRBC scheduled. Repeat Hgb 8.9
- Continue to monitor; transfuse if needed for Hgb <7
- Stable; OK to discharge.
#Diffuse Large B-Cell Lymphoma
- Being followed outpatient at [facility]
- Undergoing treatment with R-EPOCH and Neulasta
- Continue with prophylactic fluconazole, Acyclovir, and Bactrim (PJP PPx)
- Prophylactic Levofloxacin on hold while on Cefepime
- Follow up Outpatient with Oncologist for continued management of Chemo
#History of Pulmonary Emboli
#HX of Right Upper Extremity DVT (catheter associated)
- Allergy to Eliquis
- On Xarelto for DVT PPx
#Neuropathic Pain, chronic
- C/w gabapentin 300mg TID
#Migraine
- Rizatriptan PRN for Migraine symptoms
Dispo: Telemetry
Diet: Regular
DVT Ppx: on Xarelto
Code: Full Code
Anticipated Discharge: Today
Subjective/Interval History
-
Seen in the AM. Pain somewhat controlled on current regimen. Fentanyl patch is helping, though the patient does report feeling 'loopy' after the patch was put on. She has no new fevers, chills, shortness of breath, palpitations, urinary symptoms or
other acute complaints.
Objective Data
-
Labs:
Laboratory Results
12/19/23
10:25
WBC 1.8 L*
Hgb 9.9 L
Hct 28.7 L
Plt Count 68 L
Sodium 139
Potassium 4.3
Chloride 100
Carbon Dioxide 28
BUN 12
Creatinine 0.7
Glucose 93
Calcium 9.1
Total Bilirubin 0.3
AST 22
ALT 25
Alkaline Phosphatase 64
Vital Signs:
Vital Signs
Temp Pulse Resp BP Pulse Ox
99.0 F 89 18 119/85 98
12/19/23 11:15 12/19/23 11:15 12/19/23 11:15 12/19/23 11:15 12/19/23 11:15
I&O
12/18/23 12/19/23 12/20/23
06:59 06:59 06:59
Intake Total 3990 / 3990 1600 / 1600
Balance 3990 / 3990 1600 / 1600
Review of Systems
-
History Source: Patient
All other systems: Reviewed and negative
Constitutional: Reports No Symptoms
EENT: Reports No Symptoms Reported
Respiratory: Reports No Symptoms
Abdomen/GI: Reports No Symptoms
Breast: Reports No Symptoms
Genitourinary: Reports No Symptoms
Musculoskeletal: Reports No Symptoms
Skin: Reports No Symptoms
Neuro: Reports No Symptoms
Endocrine: Reports No Symptoms
Physical Exam
-
General: Well Developed, Well Nourished, No Apparent Distress and Comfortable
HEENT: Normocephalic, Atraumatic, Moist Mucous Membranes, Anicteric, [place] Conjunctivae, No Ptosis and Neck Non Tender
Respiratory: Clear to Auscultation
Cardiac: Regular Rhythm and S1/S2
Breast: Deferred by me
GI: Soft, Nontender, Nondistended and Normal Bowel Sounds
Genito-urinary: No Costovertebral Tender
Musculoskeletal: No Clubbing, No Cyanosis and No Edema
Neuro: Awake, Alert and Oriented
Hematologic / Lymphatic: No Lymphadenopathy
Psych: Calm
[2023-12-20 14:47] LABS: FIT-Fecal Occult Blood Interp Negative
== END 2023-12-19 14:41 | disposition home or self-care (01) | DRG 808 ==
LOC: 2 NORTH 01:48
PROVIDERS: Clinical Nurse Specialist Family Health; ADMITTING PHYSICIAN Internal Medicine; ATTENDING PHYSICIAN Internal Medicine; CONSULT PHYSICIAN Internal Medicine Hematology & Oncology; CONSULT PHYSICIAN Internal Medicine Infectious Disease; EMERGENCY PHYSICIAN Emergency Medicine; FAMILY PHYSICIAN Internal Medicine
PROC: 30233N1 Transfusion of Nonautologous Red Blood Cells into Peripheral Vein, Percutaneous Approach (ICD-10-PCS; 2023-12-17)
DX: D61.810 Antineoplastic chemotherapy induced pancytopenia (principal); A41.9 Sepsis, unspecified organism; C85.20 Mediastinal (thymic) large B-cell lymphoma, unspecified site; I31.31 Malignant pericardial effusion in diseases classified elsewhere; F11.20 Opioid dependence, uncomplicated; T45.1X5A Adverse effect of antineoplastic and immunosuppressive drugs, initial encounter; R50.81 Fever presenting with conditions classified elsewhere; D70.2 Other drug-induced agranulocytosis; D64.81 Anemia due to antineoplastic chemotherapy; G89.3 Neoplasm related pain (acute) (chronic); G43.909 Migraine, unspecified, not intractable, without status migrainosus; G62.9 Polyneuropathy, unspecified; Z11.52 Encounter for screening for COVID-19; Z79.899 Other long term (current) drug therapy; Z79.01 Long term (current) use of anticoagulants; Z86.718 Personal history of other venous thrombosis and embolism; Z86.711 Personal history of pulmonary embolism
CPT/HCPCS: 71046; 80053; 81003; 83520; 83605; 84484; 85025; 86850; 86900; 86901; 86920; 87040; 87811; 93005; 96361; 96374; 96375; 99285; P9016

== ENCOUNTER → 2023-12-21 14:59 | Outpatient (REF) | payer BC, SELFPAY | LOC: RAD 14:59 | PROVIDERS: ATTENDING PHYSICIAN Podiatrist; FAMILY PHYSICIAN Family Medicine | DX: R60.0 Localized edema (principal); M25.579 Pain in unspecified ankle and joints of unspecified foot | CPT/HCPCS: 93971 ==

== ENCOUNTER → 2023-12-22 09:59 | Outpatient (REF) | payer BC, SELFPAY | LOC: RAD 09:59 | PROVIDERS: ATTENDING PHYSICIAN Internal Medicine; FAMILY PHYSICIAN Nurse Practitioner Family | DX: C83.32 Diffuse large B-cell lymphoma, intrathoracic lymph nodes (principal) | CPT/HCPCS: 73600; 73620 ==

== ENCOUNTER 2024-03-11 02:40 | Inpatient (IN) | payer BC, SELFPAY ==
[2024-03-10 23:01] VITALS: BP 138/96
--- NOTE | 2024-03-10 23:19 | ED.GENMED ---
History of Present Illness
<SHOLA Tellez - Last Filed: 03/11/24 06:12>
General
Chief Complaint: Breathing Problem
Source: patient
Exam Limitations: none
Time Seen by Provider: 03/10/24 23:10
Nursing documentation reviewed up to this point in time: agreed with
History of Present Illness
History of Present Illness:
Pt is a 38 y/o F w/ PMH of B-cell non-Hodgkin lymphoma, PE, pancytopenia, and iron deficiency anemia due to chronic conditions who presents today with chest pain x 2 days that is worsening and causing dyspnea. Pt states she was at home when symptoms
began to worsen and first tried tylenol and 5mg of oxycodone to alleviate the pain. She states she tried to go to sleep but was unable to. Laying supine and walking makes the pain worse. She states the pain has started radiating some into her neck
b/l. She notes the pain started as 4/10 but is now around 8/10 and is constant. She notes the dyspnea began tonight, about a few hours ago. She states that is it worse with inspiration and with aerobic activities that cause increased rate of
breathing. She notes it is slightly better at rest. Pt also admits to chills and a fever that began tonight. She has been taking Tylenol, which has helped to bring her temperature down. She denies CRUZ, dizziness, n/v/d, cough, palpitations, abd pain,
back pain, changes in vision.
Past History
<SHOLA Tellez - Last Filed: 03/11/24 06:12>
Past History
ED Past Medical History: Cancer (Large B cell Lymphoma. ), Other (Migraines, Neuropathy, DVT, Malignant Pericardial effusion, Pericardialcentesis) and Other (migraines )
ED Past Surgical History: (X1), Gynecological (Uterine polyp removed) and Other (Thoracic surgical mass in chest)
Social History
Tobacco: Non-smoker
Alcohol: None
Drug: None
Personal:
Living: with family
Review of Systems
<SHOLA Tellez - Last Filed: 03/11/24 06:12>
Review of Systems
Allergies reviewed?: Yes
Constitutional: Reports fever (not currently febrile, but states she was at home and took tylenol) and chills
EENT: Reports no symptoms
Respiratory: Reports other (dyspnea from chest pain)
Cardiac: Reports chest pain
ABD/GI: Reports no symptoms
: Reports no symptoms
Musculoskeletal: Reports no symptoms
Neurological: Reports no symptoms
Hematologic/Lymphatic: Reports no symptoms
Phy Exam
<SHOLA Tellez - Last Filed: 03/11/24 06:12>
General Physical Exam
General Presentation: mild distress
General age: appears stated age
General Skin: warm and dry
General Habitus: normal
General Mental: alert
General Hydration: appears well hydrated
Cardiovascular Exam
Cardiovascular Exam: no gallop, no murmur and tachycardia
Pulmonary Exam
Pulmonary Exam: lungs clear, no rales, no crackles and no wheezing
Gastrointestinal Exam
Gastrointestinal Exam: normal bowel sounds, non tender, soft and non distended
Course
<SHOLA Tellez - Last Filed: 03/11/24 06:12>
Orders/Labs/Results
Orders:
Orders
03/10/24 23:38
Cardiac Monitoring- Treatment ONCE
03/10/24 23:39
EKG- Treatment ONCE
Test Result ONCE
03/10/24 23:56
C-Reactive Protein Urgent
Comment: ADDED
Complete Blood Count/With Diff Urgent
Comprehensive Metabolic Panel Urgent
HCG, Serum Qualitative Screen Urgent
Lipase Urgent
Magnesium Urgent
NT-proBNP Urgent
PTT Urgent
Prothrombin Time Urgent
Troponin I Urgent
03/10/24 23:59
Lactic Acid Q4H
Comment: CANCEL 2nd LACTIC ACID IF 1st LACTIC ACID IS LESS THAN 2
Blood Culture Q30M
ROLDAN Source: Blood/Venous
Specimen Description:
03/11/24 00:01
CT Chest Pe Study Urgent
Reason For Exam: pain with insp, hx of dvt
03/11/24 00:38
0.9% Sodium Chloride 1000 ml [Nss] 1,000 ml IV BOLUS
03/11/24 01:10
Blood Culture Q30M
ROLDAN Source: Blood/Venous
Specimen Description:
03/11/24 02:03
Admit/Transfer Patient As Directed
Co-Sign Provider:
Level of Care: Inpatient admission
Assign to:: Medical/Surgical
Physician / Group: hospitalist
Diagnosis: pleuritic chest pain
Reason for Hospitalization: fever
Expected length of stay greater than two midnights?: Yes
ELOS- Estimated Length of Stay in days: 2
I certify the patient meets the requirements for IP care: Yes
03/11/24 02:06
HYDROmorphone [Dilaudid] 0.5 mg IV NOW STA
Ondansetron Injectable [Zofran] 4 mg IV NOW STA
03/11/24 02:21
Add On- LAB Stat
Tests Added?: CRP
Ketorolac [Toradol] 15 mg IV NOW STA
03/11/24 02:26
PRN Pain Medication Management As Directed
May give lesser potent ordered pain med per pt: Yes
preference::
Protocol:: Medication orders for pain may be administered in a
manner that supports deferring to patient preference
when the pt is:
- Requesting an ordered lesser potent pain medication.
Least to most potent pain medications are defined
as: acetaminophen < NSAID < tramadol < opioids
(morphine, oxycodone, hydromorphone).
- Requesting a lesser dose of the same medication IF
ORDERED.
- Requesting a less intrusive route of administration
if both routes are prescribed by the provider (PO <
IV).
03/11/24 02:27
Code Status As Directed
Resuscitation Status: Full Code
03/11/24 02:44
COVID-19 Antigen Stat
Source: Nasal Swab
Influenza A+B Rapid Molecular Stat
ROLDAN Source: Nasal Swab
Specimen Description:
03/11/24 02:46
Urinalysis Reflex To Culture Stat
Date Specimen was Collected: 03/11/24
Time Specimen was Collected: 02:45
03/11/24 03:00
Flush (0.9% Sodium Chloride) [Flush (Nss)] See Dose Instructions IV PER PROTOCOL
03/11/24 05:15
Acetaminophen [Tylenol] 650 mg PO Q4HPRN PRN
Bisacodyl [Dulcolax] 10 mg RECTAL [id number] PRN
Docusate W/Senna [Senokot-S] 1 tablet PO BIDPRN PRN
Ketorolac [Toradol] 10 mg IV Q6HPRN PRN
Loratadine [Claritin] 10 mg PO DAILYPRN PRN
Morphine Sulfate 2 mg IV Q4HPRN PRN
Ondansetron Injectable [Zofran] 4 mg IV Q6HPRN PRN
Polyethylene Glycol Powder [Miralax] 17 grams PO DAILYPRN PRN
03/11/24 05:15
Echo 2D MMode Color/Doppler Routine
Reason for Study: chest pain
VTE Contraindication Routine
VTE Mechanical Device Contraindication: Medical Contraindication
Pharmocologic Contraindication: Medical Contraindication
Comment: On treatment dose rivaroxaban
Activity As Directed
Activity Level: As Tolerated
Vital Signs As Directed
Frequency: Per unit guidelines
Pulse Ox/spot Check [RESP] Routine
Quantity: 1
03/11/24 Breakfast
Regular
Basic Metabolic Panel IN AM
Complete Blood Count/No Diff IN AM
ESR [Erythrocyte Sed Rate] IN AM
03/11/24 08:00
Gabapentin [Neurontin] 300 mg PO BID
Pantoprazole [Protonix] 40 mg PO DAILY
03/11/24 18:00
Rivaroxaban [Xarelto] 20 mg PO QPM
Abnormal Lab Results
03/10/24 03/11/24
23:56 00:01
WBC 11.0 H 10^3/uL
(4.8-10.8)
RBC 3.58 L 10^6/uL
(4.20-5.40)
Hgb 11.4 L g/dL
(12.0-16.0)
Hct 34.8 L %
(37.0-47.0)
MCH 31.8 H pg
(27.0-31.0)
MCHC 32.8 L g/dL
(33.0-37.0)
Absolute Neuts (auto) 9.5 H 10^3/uL
(1.4-6.5)
Absolute Lymphs (auto) 0.6 L 10^3/uL
(1.2-3.4)
Absolute Monos (auto) 0.7 H 10^3/uL
(0.1-0.6)
Neutrophils % 86.3 H %
(42.2-75.2)
Lymphocytes % 5.8 L %
(20.5-51.1)
PT 18.5 H Sec
(11.4-14.6)
APTT 59.9 H Sec
(23.4-35.0)
Glucose 123 H mg/dl
(70-99)
Lactic Acid 0.6 L mmol/L
(0.7-2.0)
AST 43 H U/L
(14-36)
ALT 40 H U/L
(0-35)
C-Reactive Protein 72.90 H mg/L
(0.0-10.00)
03/10/24 23:56
03/10/24 23:56
Vital Signs
Initial and Last Documented VS:
Initial Vital Signs
Temp Pulse Resp BP Pulse Ox
100.1 F 126 22 138/96 98
03/10/24 23:01 03/10/24 23:01 03/10/24 23:01 03/10/24 23:01 03/10/24 23:01
Last Documented Vital Signs
Temp Pulse Resp BP Pulse Ox
98.5 F 91 18 117/83 98
03/11/24 05:23 03/11/24 05:23 03/11/24 05:23 03/11/24 05:23 03/11/24 05:23
<Chris Marinelli, DO - Last Filed: 03/11/24 01:56>
Orders/Labs/Results
Orders:
Orders
03/10/24 23:38
Cardiac Monitoring- Treatment ONCE
03/10/24 23:39
EKG- Treatment ONCE
Test Result ONCE
03/10/24 23:56
C-Reactive Protein Urgent
Comment: ADDED
Complete Blood Count/With Diff Urgent
Comprehensive Metabolic Panel Urgent
HCG, Serum Qualitative Screen Urgent
Lipase Urgent
Magnesium Urgent
NT-proBNP Urgent
PTT Urgent
Prothrombin Time Urgent
Troponin I Urgent
03/10/24 23:59
Lactic Acid Q4H
Comment: CANCEL 2nd LACTIC ACID IF 1st LACTIC ACID IS LESS THAN 2
Blood Culture Q30M
ROLDAN Source: Blood/Venous
Specimen Description:
03/11/24 00:01
CT Chest Pe Study Urgent
Reason For Exam: pain with insp, hx of dvt
03/11/24 00:38
0.9% Sodium Chloride 1000 ml [Nss] 1,000 ml IV BOLUS
03/11/24 01:10
Blood Culture Q30M
ROLDAN Source: Blood/Venous
Specimen Description:
03/11/24 02:03
Admit/Transfer Patient As Directed
Co-Sign Provider:
Level of Care: Inpatient admission
Assign to:: Medical/Surgical
Physician / Group: hospitalist
Diagnosis: pleuritic chest pain
Reason for Hospitalization: fever
Expected length of stay greater than two midnights?: Yes
ELOS- Estimated Length of Stay in days: 2
I certify the patient meets the requirements for IP care: Yes
03/11/24 02:06
HYDROmorphone [Dilaudid] 0.5 mg IV NOW STA
Ondansetron Injectable [Zofran] 4 mg IV NOW STA
03/11/24 02:21
Add On- LAB Stat
Tests Added?: CRP
Ketorolac [Toradol] 15 mg IV NOW STA
03/11/24 02:26
PRN Pain Medication Management As Directed
May give lesser potent ordered pain med per pt: Yes
preference::
Protocol:: Medication orders for pain may be administered in a
manner that supports deferring to patient preference
when the pt is:
- Requesting an ordered lesser potent pain medication.
Least to most potent pain medications are defined
as: acetaminophen < NSAID < tramadol < opioids
(morphine, oxycodone, hydromorphone).
- Requesting a lesser dose of the same medication IF
ORDERED.
- Requesting a less intrusive route of administration
if both routes are prescribed by the provider (PO <
IV).
03/11/24 02:27
Code Status As Directed
Resuscitation Status: Full Code
03/11/24 02:44
COVID-19 Antigen Stat
Source: Nasal Swab
Influenza A+B Rapid Molecular Stat
ROLDAN Source: Nasal Swab
Specimen Description:
03/11/24 02:46
Urinalysis Reflex To Culture Stat
Date Specimen was Collected: 03/11/24
Time Specimen was Collected: 02:45
03/11/24 03:00
Flush (0.9% Sodium Chloride) [Flush (Nss)] See Dose Instructions IV PER PROTOCOL
03/11/24 05:15
Acetaminophen [Tylenol] 650 mg PO Q4HPRN PRN
Bisacodyl [Dulcolax] 10 mg RECTAL [id number] PRN
Docusate W/Senna [Senokot-S] 1 tablet PO BIDPRN PRN
Ketorolac [Toradol] 10 mg IV Q6HPRN PRN
Loratadine [Claritin] 10 mg PO DAILYPRN PRN
Morphine Sulfate 2 mg IV Q4HPRN PRN
Ondansetron Injectable [Zofran] 4 mg IV Q6HPRN PRN
Polyethylene Glycol Powder [Miralax] 17 grams PO DAILYPRN PRN
03/11/24 05:15
Echo 2D MMode Color/Doppler Routine
Reason for Study: chest pain
VTE Contraindication Routine
VTE Mechanical Device Contraindication: Medical Contraindication
Pharmocologic Contraindication: Medical Contraindication
Comment: On treatment dose rivaroxaban
Activity As Directed
Activity Level: As Tolerated
Vital Signs As Directed
Frequency: Per unit guidelines
Pulse Ox/spot Check [RESP] Routine
Quantity: 1
03/11/24 Breakfast
Regular
Basic Metabolic Panel IN AM
Complete Blood Count/No Diff IN AM
ESR [Erythrocyte Sed Rate] IN AM
03/11/24 08:00
Gabapentin [Neurontin] 300 mg PO BID
Pantoprazole [Protonix] 40 mg PO DAILY
03/11/24 18:00
Rivaroxaban [Xarelto] 20 mg PO QPM
Abnormal Lab Results
03/10/24 03/11/24
23:56 00:01
WBC 11.0 H 10^3/uL
(4.8-10.8)
RBC 3.58 L 10^6/uL
(4.20-5.40)
Hgb 11.4 L g/dL
(12.0-16.0)
Hct 34.8 L %
(37.0-47.0)
MCH 31.8 H pg
(27.0-31.0)
MCHC 32.8 L g/dL
(33.0-37.0)
Absolute Neuts (auto) 9.5 H 10^3/uL
(1.4-6.5)
Absolute Lymphs (auto) 0.6 L 10^3/uL
(1.2-3.4)
Absolute Monos (auto) 0.7 H 10^3/uL
(0.1-0.6)
Neutrophils % 86.3 H %
(42.2-75.2)
Lymphocytes % 5.8 L %
(20.5-51.1)
PT 18.5 H Sec
(11.4-14.6)
APTT 59.9 H Sec
(23.4-35.0)
Glucose 123 H mg/dl
(70-99)
Lactic Acid 0.6 L mmol/L
(0.7-2.0)
AST 43 H U/L
(14-36)
ALT 40 H U/L
(0-35)
C-Reactive Protein 72.90 H mg/L
(0.0-10.00)
03/10/24 23:56
03/10/24 23:56
Vital Signs
Initial and Last Documented VS:
Initial Vital Signs
Temp Pulse Resp BP Pulse Ox
100.1 F 126 22 138/96 98
03/10/24 23:01 03/10/24 23:01 03/10/24 23:01 03/10/24 23:01 03/10/24 23:01
Last Documented Vital Signs
Temp Pulse Resp BP Pulse Ox
98.5 F 91 18 117/83 98
03/11/24 05:23 03/11/24 05:23 03/11/24 05:23 03/11/24 05:23 03/11/24 05:23
<SHOLA Tellez - Last Filed: 03/11/24 06:12>
MDM/Problems Addressed
Differential Diagnosis Includes:
pleural effusion, pericardial effusion, costochondritis, PE, pneumothorax, pneumonia
<Chris Marinelli DO - Last Filed: 03/11/24 01:56>
MDM/Problems Addressed
MDM/Problems Addressed:
38-year-old female history of non-Hodgkin's lymphoma and chronic lymphedema presents with acute on chronic chest pain and worsening shortness of breath. She does have a history of DVTs.
Chronic conditions affecting care: Cancer
<SHOLA Tellez - Last Filed: 03/11/24 06:12>
*Critical Care Note
Total Time (30-74mins, 75-104mins- exclusive of procedures): Not Applicable
<Chris Marinelli DO - Last Filed: 03/11/24 01:56>
*Pulse Oximetry
Patient hypoxic: no
*Dag Sprayer Interpretation
Rate: tachycardiac
Interpretation: abnormal
Heart Rate: 113
Rhythm: sinus tachycardia
<Chris Marinelli DO - Last Filed: 03/11/24 01:56>
Update Note
Update Note:
CTA chest with IV contrast
Comparison: Chest CT of 10/11/23
IMPRESSION:
No evidence of pulmonary artery embolus or thoracic aortic dissection.
Decreased size of lobulated anterior mediastinal mass compared to the prior study of 10/11/23. Residual lobulated soft tissue density mass in the anterior mediastinum measures approximately 4.7 x 3.2 cm at image 45 of series 401, previously
approximately 8.3 x 6.2 cm.
Mildly increased small pericardial effusion.
Small left pleural effusion, slightly decreased compared to the prior study of 10/11/23.
No evidence of pneumonia.
Results finalized at 1:25 AM ET.
ED Attending Note
<SHOLA Tellez - Last Filed: 03/11/24 06:12>
-
Portions of this chart may have been created with voice recognition software.� Occasional wrong word or��sound alike� substitutions may have occurred due to the inherent limitations of voice recognition software.
<Chris Marinelli DO - Last Filed: 03/11/24 01:56>
ED Attending Note
Patient seen and examined by attending physician: Yes
I performed the substantive portion of visit, reviewed & personally made and approve the management plan that is documented in note by myself or HAKAN.: Yes
ED Attending Note:
This a pleasant 38-year-old female that presents to the emergency department with chest pain, painful inspiration and fever. She does have a history of B cell Non-Hodgkin's lymphoma which she was diagnosed with in September and finished her last
chemotherapy in January. Though she states that she has been having chest pain since April, but last 3 days have been more severe. She took oxycodone and Tylenol to alleviate the pain but states that she got minimal. She states that while lying
flat, the pain is worse. Walking also exacerbates her symptoms. Patient does report fever and chills that began this evening. Upon arrival she was afebrile but she did take Tylenol. She does have chronic pedal edema and is due to see a
lymphedema specialist in April. Patient was seen in conjunction with the PA student. I have reviewed and agree with the history and treatment plan presented. On my independent physical exam, patient is awake, alert, and oriented x3. Heart is
tachycardic. 113 on the monitor. Abdomen is soft nontender. Skin is warm and dry. She does have 1+ pedal edema on the bilateral lower extremities.
Discharge Plan
Departure
Patient Disposition: Admit
Date of Disposition: 03/11/24
Time of Disposition: 01:55
Admit to: Telemetry
Presentation/result/management discussed w/ accepting MD/DO: Hospitalist
Condition: Fair
Discharge Problem:
Sinus tachycardia, Fever, B-cell non-Hodgkin lymphoma, Pleural effusion, Pericardial effusion, acute
Interventions
Interventions:
*Risk Screen - Suicide Last Done: 03/10/24 23:01
*General Assessment Last Done: 03/10/24 23:41
*Neglect/Abuse Screening Last Done: 03/10/24 23:01
ED- Fall Risk Assessment Last Done: 03/11/24 00:22
*ED COVID-19 Vaccine History Last Done: 03/11/24 05:20
*Nursing Disposition Last Done: 03/11/24 05:15
ED- Cardiac Assessment Last Done: 03/11/24 00:22
ED- Pulmonary Assessment Last Done: 03/11/24 00:22
Discharge Date and Time
Discharge Date/Time: 03/11/24 05:16
[2024-03-10 23:41] VITALS: BMI 25.0
[2024-03-11] VITALS (10 sets, daily range): BP systolic 100–147; BP diastolic 66–102; BMI 25.0
[2024-03-11 00:10] LABS: % Basophils 0.2 % (0-2); % Eosinophils 1.1 % (0-6); % Immature Granulocytes 0.4 % (0-0.5); % Lymphocytes 5.8 % (20.5-51.1); % Monocytes 6.2 % (1.7-9.3); % Neutrophils 86.3 % (42.2-75.2); Absolute Eosinophils 0.1 10^3/uL (0-0.7); Absolute Lymphocytes 0.6 10^3/uL (1.2-3.4); Absolute Monocytes 0.7 10^3/uL (0.1-0.6); Absolute Neutrophils 9.5 10^3/uL (1.4-6.5); Hematocrit 34.8 % (37.0-47.0); Hemoglobin 11.4 g/dL (12.0-16.0); Mean Corp Hgb Conc. 32.8 g/dL (33.0-37.0); Mean Corpuscular Hgb 31.8 pg (27.0-31.0); Mean Corpuscular Volume 97.2 fL (81.0-99.0); Mean Platelet Volume 10.4 fL (7.4-10.4); Nucleated Red Blood Cells % 0 %; Platelet Count 144 10^3/uL (130-400); Red Blood Cell Count 3.58 10^6/uL (4.20-5.40)
[2024-03-11 00:13] LABS: HCG, Serum Qualitative Screen Negative
[2024-03-11 00:18] LABS: INR 1.52; PT 18.5 Sec (11.4-14.6)
[2024-03-11 00:19] LABS: APTT 59.9 Sec (23.4-35.0)
[2024-03-11 00:21] LABS: ALT (SGPT) 40 U/L (0-35); AST (SGOT) 43 U/L (14-36); Albumin 4.5 g/dl (3.5-5.0); Alkaline Phosphatase 58 U/L (38-126); Blood Urea Nitrogen 15 mg/dl (7-17); Calcium 9.3 mg/dl (8.4-10.2); Carbon Dioxide 29 mmol/L (22-30); Chloride 100 mmol/L (98-107); Estimated Creatinine Clearance 109 ml/min; Glucose 123 mg/dl (70-99); Lipase 43 U/L (23-300); Magnesium 1.9 mg/dl (1.6-2.3); Potassium 4.3 mmol/L (3.5-5.1); Sodium 139 mmol/L (135-145); Total Bilirubin 0.3 mg/dl (0.2-1.3); Total Protein 6.8 g/dl (6.3-8.2); eGFR > 60.00
[2024-03-11 00:29] LABS: Lactic Acid 0.6 mmol/L (0.7-2.0)
[2024-03-11 00:34] LABS: NT-proBNP 225 pg/ml; Troponin I < 0.012 ng/ml
[2024-03-11] MEDS: NSS 1000 IV (00:38)
--- NOTE | 2024-03-11 02:30 | HPS.HSE ---
Family Physician
-
Family Physician: Nikky Barrios MD
Chief Complaint
-
Chest pain
History of Present Illness
38 year-old female was a past medical history significant for non-Hodgkin's lymphoma with status post chemotherapy with last treatment about 8 weeks ago presents to the emergency department with worsening chest pain and a temp of 100.5 max at home.
Patient reports about 2 days of worsening chest pain. She reports that the chest pain is worse with inspiration. She notes chest pain is in the anterior costal margins as well as substernal and around the clavicles bilaterally. She reports that
with any movement she has worsening of pain. She reports that any activity that increases her heart rate increases the pain. She feels the pain sensation with each heartbeat and it is worse when the heartbeat is fast. She reports the pain is
present when she is sitting although resolves after some time. It is also present when she is laying down but over time subsides if she is still. She denies any nausea. She denies vomiting. She denies any recent cough cold or flulike symptoms.
Denies any sore throat. Patient denies any urinary symptoms. She denies any history of kidney stones. She has a history of PE and has been on anticoagulation with Xarelto since September.
Patient has a past medical history is also significant for pericardial effusion that required pericardiocentesis sometimes around September. She is unable to tell me the results of the fluid analysis of biopsy at that time.
Patient presented similarly to [facility] in december with fever and chest pain that was difficult to control with analgesics. She had infectious workup and treated with antibiotics empirically. The infectious workup was negative.
Antibiotics were subsequently discontinued and patient was able to be discharged.
In the emergency room room here today the patient had a temp of 100.1, she was tachycardic to the 110s. Blood pressure was stable at 140/100. She was at 99% on room air. ECG shows sinus tachycardia and is unchanged from prior. Troponin was
negative. BNP was negative. She had a CT angio which was negative for PE. There was no pneumonia. He showed small slightly increased pericardial effusion as well as a small decreased pleural effusion. The previously seen anterior midsternal
mediastinal mass has shrunken significantly but still at 4.7 x 3.2.
Medical History
Past Medical History
Past Medical History: Reports Cancer (Non-Hodgkin's lymphoma), GERD and Other (Pericardial effusion status post prior pericardiocentesis)
Additional Past Medical History:
Pulmonary emboli
Past Surgical History: Reports Other (Mediastinal biopsy)
Social History
Tobacco: Non-smoker
Alcohol: Occasional
Drug: None
Personal:
Living: With Family
Family History
Family History: Not pertinent
Allergies / Home Medications
Allergies reflects when Allergies were last updated in [facility] [facility].
Home Medications with original date entered in [employer] [facility]
Allergy/Medication List:
Allergies
Allergy/AdvReac Type Severity Reaction Status Date / Time
apixaban [From Active[employer]] Allergy Tongue Verified 03/10/24 23:05
Swelling
Home Medications
Lactobac no.2-Bifidobac no.1-S. thermo 112.5 billion cell capsule (Visbiome) 1 cap PO DAILY PRN Gastrointestinal Issue 10/11/23
gabapentin 300 mg capsule 300 mg PO BID Pain 10/11/23
loratadine 10 mg tablet (Claritin) 10 mg PO DAILYPRN PRN the day of and 3 day after injection 10/11/23
therapeutic multivitamin 1 tab PO DAILY Supplement 10/11/23
rivaroxaban 20 mg tablet (Xarelto) 20 mg PO QPM Blood clot prevention/tx #30 tabs 10/19/23
oxycodone 5 mg tablet 10 mg PO QID Pain 12/15/23
oxycodone 10 mg tablet 10 mg PO Q8H PRN Pain 3 days #14 tabs 12/19/23
cyclobenzaprine 10 mg tablet 5 mg PO TID PRN Muscle spasms 03/10/24
duloxetine PO DAILY 03/10/24
omeprazole 20 mg capsule,delayed release 20 mg PO DAILY 03/10/24
Review of Systems
-
History Source: Patient
Constitutional: Reports Fever
EENT: Reports No Symptoms
Respiratory: Reports No Symptoms
Cardiac: Reports Chest Pain
Abdomen/GI: Reports No Symptoms
: Reports No Symptoms
Musculoskeletal: Reports No Symptoms
Skin: Reports No Symptoms
Neurological: Reports No Symptoms
Endocrine: Reports No Symptoms
Hematologic/Lymphatic: Reports No Symptoms
Psych: Reports No Symptoms
Physical Exam
Vital Signs
Vital Signs
Temp Pulse Resp BP Pulse Ox
99.5 F 103 22 132/92 98
03/11/24 01:11 03/11/24 02:00 03/11/24 02:00 03/11/24 02:00 03/11/24 02:00
Physical Exam
General: Well Developed, Well Nourished and Pain
HEENT: NormoCephalic, Anicteric, Moist mucous membranes, Atraumatic, PERRLA and No Ptosis
Respiratory: Clear and Other (chest pain not reproducible with palpation)
Cardiac: S1/S2 and Tachycardia
Breast: Deferred by me
GI: Soft, Non Tender, Non Distended and Normal Bowel Sounds
Rectal: Deferred by Provider
Genito-urinary: No costovertebral tender
Musculoskeletal: No Clubbing, No Cyanosis and No Edema
Skin: Warm
Neuro: AO x 3
Hematologic/Lymphatic: No Lymphadenopathy
Psych: Calm
Laboratory Results
-
03/10/24 23:56
03/10/24 23:56
Laboratory Results
PT 18.5 Sec (11.4-14.6) H 03/10/24 23:56
INR 1.52 03/10/24 23:56
APTT 59.9 Sec (23.4-35.0) H 03/10/24 23:56
Lactic Acid Cancelled 03/11/24 03:59
Total Bilirubin 0.3 mg/dl (0.2-1.3) 03/10/24 23:56
AST 43 U/L (14-36) H 03/10/24 23:56
ALT 40 U/L (0-35) H 03/10/24 23:56
Alkaline Phosphatase 58 U/L (38-126) 03/10/24 23:56
Troponin I < 0.012 ng/ml 03/10/24 23:56
Lipase 43 U/L (23-300) 03/10/24 23:56
Data Reviewed
-
CT Scan: Report Reviewed by me
Medical Tests (Nuc Med, Echo, EKG etc): Image Personally Visualized and interpreted
Lab Data: Labs Reviewed by me
Old Records: Reviewed
Impression/Plan
-
IMPRESSION:
38-year-old female with history of non-Hodgkin's lymphoma status postchemotherapy, last session was completed in early January of 8 weeks ago with follow-up imaging pending, history of pericardial effusion status post prior pericardiocentesis,
pulmonary emboli attributable to PICC line now on Xarelto who presents to the emergency department with severe pleuritic chest pain and low-grade fever.
PLAN:
1. Chest pain - Pleuritic chest pain, not reproducible with palpation. No PE on CT scan. No consolidation. Trace pleural effusion and some pericardial effusion. No ischemia on ECG and normal troponin. Suspect serositis either pericarditis vs
pleuritis. No obvious etiology for just pleuritis.
- admit to med/surg
- check crp,esr, if elevated, will start empiric colchicine
- viral panel, kae
- pain control with toradol prn for now in additon to iv morphine prn
- echo in am
- cardiology consult
2. Fever - Temp 100.1. Last chemo was early january about 8 weeks ago. Normal WBC w/o leukopenia/neutropenia. Though immunocompromised no obvious source on imaging or exam. Similar presentation few months ago but was on chemo at that time.
- blood cultures, urine cultures
- viral panel as above
- check procalcitonin
- hold off abx for now
- ID consultation
3. Pulmonary Embolism - h/o PE and RUE DVT on rivaroxaban. CT shows NO embolism today.
- continue rivaroxaban 20 daily
Code status - Full Code
[2024-03-11] MEDS: ZOFRAN 4 MG IV (02:36)
[2024-03-11] MEDS: TORADOL 15 MG IV (02:36)
[2024-03-11] MEDS: DILAUDID 0.5 MG IV ×3 (02:36→22:22)
[2024-03-11 03:05] LABS: Urine Albumin Negative (Neg - Trace); Urine Bilirubin Negative (Negative); Urine Character Clear (Clear); Urine Color Yellow; Urine Glucose Negative (Negative); Urine Ketone Negative (Negative); Urine Leukocyte Negative (Negative); Urine Nitrite Negative (Negative); Urine Occult Blood Negative (Negative); Urine Specific Gravity 1.005 (<1.030); Urine Urobilinogen Negative (Neg - 1+)
[2024-03-11 03:22] LABS: COVID-19 Antigen Negative (Negative)
[2024-03-11] MEDS: TYLENOL 650 MG PO (05:44)
--- NOTE | 2024-03-11 06:00 | PTCARENOTE ---
Received patient from ED via stretcher. Patient ambulated from stretcher to bed independently. Patient reports 3-4/10 pain throughout chest and to left ribs. PRN tylenol given as ordered. Oriented patient to room and placed call molina within reach.
[2024-03-11 06:42] LABS: Hematocrit 33.5 % (37.0-47.0); Hemoglobin 10.7 g/dL (12.0-16.0); Mean Corp Hgb Conc. 31.9 g/dL (33.0-37.0); Mean Corpuscular Hgb 31.8 pg (27.0-31.0); Mean Corpuscular Volume 99.7 fL (81.0-99.0); Mean Platelet Volume 10.3 fL (7.4-10.4); Platelet Count 145 10^3/uL (130-400); Red Blood Cell Count 3.36 10^6/uL (4.20-5.40); White Blood Cell Count 10.3 10^3/uL (4.8-10.8)
[2024-03-11 06:52] LABS: Blood Urea Nitrogen 13 mg/dl (7-17); Calcium 8.8 mg/dl (8.4-10.2); Carbon Dioxide 31 mmol/L (22-30); Chloride 103 mmol/L (98-107); Estimated Creatinine Clearance 109 ml/min; Glucose 111 mg/dl (70-99); Potassium 4.4 mmol/L (3.5-5.1); Sodium 138 mmol/L (135-145); eGFR > 60.00
[2024-03-11 07:13] LABS: Procalcitonin < 0.05 ng/ml (0.0-0.25)
[2024-03-11 08:20] LABS: Erythrocyte Sed Rate 24 mm/hour (0-20)
--- NOTE | 2024-03-11 08:38 | CON.CAR ---
Addendum entered and electronically signed by Roscoe Morales MD 03/11/24 19:03:
38-year-old woman admitted with pleuritic chest pain. 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
Treated with R-EPOCH. Also pulmonary embolism related to PICC line in November. Now admitted with pleuritic chest discomfort, mediastinal mass has significantly decreased in size, 4.3 x 2.8 cm. Pericardial effusion on CT scan, present but very
small on echo and small left pleural effusion.
PMH as above, plus migraine
PSH: Surgery
Allergy: Eliquis with possible angioedema
Outpatient meds (pertinent): Xarelto
100/68, pulse 82, respirate 18, afebrile, sats 100%, no acute distress, head neck exam notable for alopecia lungs are clear, no rub, no murmurs, JVD okay, abdomen benign extremities without clubbing/edema,
EKG probable SC segment depression, nonspecific T wave changes
Hemoglobin 10.7, white count 10.3, platelets 145, sed rate 24, bicarb 31, CMP otherwise normal, troponin undetectable, CRP 73, proBNP 225
Impression:
Large B-cell lymphoma/history of malignant pericardial effusion
Chest pain suggestive of pericarditis with small pericardial effusion
Pericardial effusion
Pulmonary embolism 09/2023
DVT Right upper extremity 09/2023, PICC line
Sinus tachycardia
Anemia
Low-grade fevers
Plan:
She presents with chest pain most suggestive of pericarditis with a history of malignant pericardial effusion. She has a small pericardial effusion that may be minimally more apparent by echo that was apparent on her prior study. She has a small
left pleural effusion.
Although she has a history of malignant pericardial effusion, it may be that her current symptoms are related to an inflammatory process rather than neoplastic. At present it seems that her pericardial fluid and pleural fluid are too small to tap.
There was no evidence of pulmonary embolus or pneumonia, and her mediastinal mass is decreased in size following chemotherapy.
At present, would focus on pain management, will add colchicine at present. No interaction with Xarelto, gabapentin, or duloxetine.
Will need to follow with serial echoes and if increase in size of effusion would repeat pericardiocentesis.
Defer to primary service as to best means to monitor pleural fluid.
If symptoms persist, we may need to consider further etiologies for pericarditis
Addendum entered and electronically signed by NAMAN Bach 03/11/24 10:17:
.
Original Note:
Consultation
Consultation Request
Date/Time Consultation Requested: 03/11/2024, 0247
Date/Time Consultation Performed: 03/11/2024, 0845
Requesting Provider: Laron Sung
Performing Provider: NAMAN Bach for [facility]ology
Reason for Consultation: pericardial effusion, possible pericarditis
Medical History
-
Chief Complaint: Chest pain
History of Present Illness:
38-year-old female with past medical history significant for non-Hodgkin's lymphoma which was diagnosed 09/25/2023 after presenting to with fever and chest pain, found to have anterior mediastinal mass and pericardial effusion, transferred to
[facility], s/p chemotherapy with last treatment approximately 8 weeks ago, pulmonary embolism attributable to PICC line (on Xarelto since 09/2023), pericardial effusion requiring pericardiocentesis 09/2023.
She presented to the ED 03/11/2024 with worsening chest pain and temperature of 100.5. She reported 2 days of worsening chest pain with inspiration, movement and activities increasing the heart rate. No relief with ibuprofen, oxycodone, Tylenol,
simethicone, muscle relaxants that she tried prior to presentation. No associated shortness of breath, palpitations, lightheadedness, diaphoresis, nausea, vomiting. Had similar admission in December 2023 to with fever and chest pain that was
difficult to control with analgesics. ID workup negative.
Admitted to 10/11/2023 to 10/13/2023 for acute pulmonary embolism, right upper extremity DVT T of PICC line which was subsequently removed. She was started on Eliquis at that time. She had completed 1 round of chemotherapy at that time at [facility].
Admitted to 10/17/2023 to 10/19/2023 with fever and concerns of tongue swelling and was changed to Lovenox. She was seen by hematology oncology and changed to Xarelto. Infectious workup at the time was negative.
Completed last round of chemotherapy approximately 8 weeks ago. Scheduled for PET scan in April 2024.
ED workup: EKG showed sinus tachycardia, 115 bpm.
BNP 225. Troponin less than 0.012. BUN/creatinine 13/0. 6, K4.[address]/PE study: negative for PE, pneumonia. Interval increase in size of pericardial effusion now small to moderate. Trace left pleural effusion. Significant interval decrease in size of anterior mediastinal mass now measuring 4.3 x 2.8 cm
Echo 10/11/2023: EF 55 to 60%, trivial pericardial effusion.
Past Medical History
Past Medical History: Other (As above)
Past Surgical History:
Social History
Tobacco: Non-Smoker
Alcohol: Occasional
Personal:
Living: With Family
Family History
Family History: Other (Father with history of CAD status post stent age approximate 60)
Allergies / Home Medications
Allergy/AdvReac Type Severity Reaction Status Date / Time
apixaban [From Eliquis] Allergy Tongue Verified 03/10/24 23:05
Swelling
�Medication �Instructions �Recorded �Confirmed �Type
Lactobac no.2-Bifidobac no.1-S. 1 cap PO DAILY PRN 10/11/23 03/10/24 History
thermo 112.5 billion cell capsule Gastrointestinal Issue
(Visbiome)
gabapentin 300 mg capsule 300 mg PO BID Pain 10/11/23 03/10/24 History
loratadine 10 mg tablet (Claritin) 10 mg PO DAILYPRN PRN the day of 10/11/23 03/10/24 History
and 3 day after injection
therapeutic multivitamin 1 tab PO DAILY Supplement 10/11/23 03/10/24 History
rivaroxaban 20 mg tablet (Xarelto) 20 mg PO QPM Blood clot 10/19/23 03/10/24 Rx
prevention/tx #30 tabs
oxycodone 5 mg tablet 10 mg PO QID Pain 12/15/23 03/10/24 History
oxycodone 10 mg tablet 10 mg PO Q8H PRN Pain 3 days #14 12/19/23 03/10/24 Rx
tabs
cyclobenzaprine 10 mg tablet 5 mg PO TID PRN Muscle spasms 03/10/24 03/10/24 History
duloxetine PO DAILY 03/10/24 History
omeprazole 20 mg capsule,delayed 20 mg PO DAILY 03/10/24 03/10/24 History
release
Review of Systems
-
History Source: Patient
All other systems: Negative unless noted
Physical Exam
Vital Signs
Temp Pulse Resp BP Pulse Ox
98 F 82 18 100/68 100
03/11/24 08:22 03/11/24 08:22 03/11/24 08:22 03/11/24 08:22 03/11/24 08:22
Lab Results
03/11/24 06:12
03/11/24 06:12
Troponin I < 0.012 ng/ml 03/10/24 23:56
Pnm-A-Ajmmtrkdarq Pept 225 pg/ml 03/10/24 23:56
GEN: No distress, awake, Ox3
HEENT: supple, anicteric, mmm
LUNGS: CTA, no wheezes/rales
CV: Reg, S1/S2, no rub, no murmur
ABD: soft, BS+, NT/ND
EXT: No edema
NEURO: Gross non-focal
SKIN: No rash
Impression / Plan
-
Primary CARE physician: Nikky Barrios
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
Oncologist: Onel Tucker ([facility])
Impression:
Non-Hodgkin's lymphoma
Chest pain
Pericardial effusion
Pulmonary embolism 09/2023
DVT Right upper extremity 09/2023, PICC line
Sinus tachycardia
Anemia
Low-grade fevers
Previous cardiovascular studies:
Echo 10/11/2023: EF 55 to 60%, trivial pericardial effusion
EKG:
03/10/2024: Sinus tachycardia, 115 bpm
Plan:
Check echo today to further quantify pericardial effusion seen on chest CT.
-Remains on anticoagulation for history of pulmonary embolism, Xarelto 20 mg daily
-Continue pain management. Pain currently controlled with current regimen.
-Further recommendations pending results of echo.
-completed chemo 8 wks ago and getting f/u PET 04/2024
Data Reviewed
-
EKG: Tracing Personally Visualized and interpreted
Labs: Labs Reviewed by me
[2024-03-11] MEDS: NEURONTIN 300 MG PO ×2 (09:08→20:08)
[2024-03-11] MEDS: PROTONIX 40 MG PO (09:08)
[2024-03-11] MEDS: TORADOL 10 MG IV ×2 (09:08→16:40)
--- NOTE | 2024-03-11 10:36 | CON.ID ---
Consultation
-
Date/Time Consultation Requested: March 11, 2024 0515
Date/Time Consultation Performed: March 11, 2024 1040
Requesting Provider: Dr. Tr Reid
Performing Provider: Dr. Eliana Bunch
Reason for Consultation: Fever of unknown source
Chief Complaint / Past History
Chief Complaint
Chest pain
History of Present Illness
38-year-old female diagnosed of diffuse large B-cell lymphoma early September 2023 with large mediastinal mass and malignant pericardial effusion status post pericardiocentesis at [facility], completed R-EPOCH 2 months ago. March 08, she noticed
chest pain initially she was able to control with NSAIDs. Also had low-grade temps to 99 and chills. Her chest pain continued to get worse and uncontrollable. She came to the ER last night. Temperature 100.1. White count 11. Procal negative.
Chest CT shows increased in the size of the pericardial effusion from small to moderate. Patient reports chest pain is worse on supine position. No cough or shortness of breath. Positive rhinorrhea and sinus congestion last week. No headache or
sore throat. No nausea, vomit, abdominal pain or diarrhea. No urinary symptoms. No tick exposure as she does not go out much in grassy areas. No pets. Her 2 young children goes to daycare. Her son had rhinorrhea recently.
Past History
Additional Past Medical History:
Diffuse Large B-cell lymphoma, massive mediastinal mass, malignant pericardial effusion diagnosed September 2023 completed chemotherapy (R-EPOCH) 12/2023 ([facility])
PICC associated DVT
Migraine
Additional Past Surgical History:
Allergy History:
apixaban [From Eliquis] Allergy (Verified 03/10/24 23:05)
Tongue Swelling
Medications Reviewed: Yes
Current Antibiotics:
none
Social History
Tobacco: Non-Smoker
Alcohol: Occasional
Drug: None
Personal:
Living: With Family
Family History
Family History: Not Pertinent
Review of Systems
Review of Systems
General: Chills and Change in Appetite
HEENT: Sinus Problems; Negative Lymphadenopathy, Stiff Neck, Headache or Pharyngitis
Cardiovascular: Chest Pain; Negative Dyspnea
Respiratory: Negative Dyspnea or Cough
Gasteroenterology: Negative Nausea, Vomiting or Diarrhea
Genital / Urological: Negative Dysuria or Flank Pain
Endocrine: Negative Weakness
Skin / Hair / Nails: Negative Rash
Neurological: Negative Dizziness
All systems: All other systems were reviewed and were negative
Vital Signs
Temp Pulse Resp BP Pulse Ox
98 F 82 18 100/68 100
03/11/24 08:22 03/11/24 08:22 03/11/24 08:22 03/11/24 08:22 03/11/24 08:22
Physical Exam
Physical Exam
Constitutional: No Acute Distress and Comfortable
Eyes: No Conjunctival Hemorrhage and Sclera Anicteric
Oral: No Ulcers
Cardiovascular: S1/S2 and Other (Tachycardic)
Pulmonary: Clear
Gastrointestinal: Soft, Non Tender, Non Distended and Normal Bowel Sounds
Genito-Urinary: Negative CVA Tenderness
Extremities: Negative Edema
Musculoskeletal: Negative Spinal Tenderness
Neurological: AO x 3
Lab / Diagnostic Study Results
03/11/24 06:12
03/11/24 06:12
Abs Immat Gran (auto) 0.0 10^3/uL (0-0.05) 03/10/24 23:56
Absolute Neuts (auto) 9.5 10^3/uL (1.4-6.5) H 03/10/24 23:56
Absolute Lymphs (auto) 0.6 10^3/uL (1.2-3.4) L 03/10/24 23:56
Absolute Monos (auto) 0.7 10^3/uL (0.1-0.6) H 03/10/24 23:56
Absolute Basos (auto) 0.0 10^3/uL (0-0.2) 03/10/24 23:56
Immature Gran % 0.4 % (0-0.5) 03/10/24 23:56
Neutrophils % 86.3 % (42.2-75.2) H 03/10/24 23:56
Lymphocytes % 5.8 % (20.5-51.1) L 03/10/24 23:56
Monocytes % 6.2 % (1.7-9.3) 03/10/24 23:56
Eosinophils % 1.1 % (0-6) 03/10/24 23:56
Basophils % 0.2 % (0-2) 03/10/24 23:56
ESR 24 mm/hour (0-20) H 03/11/24 06:12
PT 18.5 Sec (11.4-14.6) H 03/10/24 23:56
INR 1.52 03/10/24 23:56
Lactic Acid Cancelled 03/11/24 03:59
C-Reactive Protein 72.90 mg/L (0.0-10.00) H 03/10/24 23:56
Procalcitonin < 0.05 ng/ml (0.0-0.25) 03/11/24 06:12
Microbiology Results
Micro:
03/11/24 02:44 Influenza Types A & B ([facility]) - Final
Nasal Swab Negative for Influenza A & B, NAAT
Negative results must be combined with clinical observations
and patient history.
Nucleic Acid Amplification test (NAAT)performed on the
[employer] NOW platform.
03/11/24 01:10 Blood Culture - Pending
Blood/Venous
03/11/24 00:01 Blood Culture - Pending
Blood/Venous
03/11/24 CT chest: No evidence for pulmonary embolism or acute aortic pathology. Significant interval decrease in size of anterior mediastinal mass now measuring roughly 4.3 x 2.8 cm in cross-section, previously 8.3 x 5.5 cm on 10/11/2023. Interval
increase in size of now small to moderate pericardial effusion. Trace left pleural effusion.
Assessment / Plan
# Pericarditis
-suspect viral, preceded by URI
- Malignant pericardial effusion possible
- For TTE
- COVID/Influenza negative.
-Supportive care for now.
# Diffuse large B cell lymphoma, mediastinal mass, hx malignant pericardial effusion, completed R-EPOCH 12/2023 ([facility])
--- NOTE | 2024-03-11 13:17 | CM ---
Chart reviewed and patient visited at bedside to complete IA.
Crystal lives with her , and 2 small children, ages 2yo and 5yo. She is currently on disability due to chemo treatment. Crystal continues to be (I) amb and adls; no DME in the home. Drives short distances when feeling up to it;
provides transport as needed.
Family/friends provide support/assistance at home when needed. CM will continue to follow to coordinate discharge needs.
Plan: Discharge to home with family and resumption [facility] when medically cleared.
PCP: Dr. Junaid Tucker
Pharmacy: [facility]
[2024-03-11] MEDS: MORPHINE SULFATE 2 MG IV (13:57)
[2024-03-11] MEDS: COLCHICINE 1.2 MG PO (16:38)
--- NOTE | 2024-03-11 17:02 | PTCARENOTE ---
Pt concerned with taking motrin and xarelto. Called pharm and spoke with Chris stated 'INR will be monitored while she is here'.
--- NOTE | 2024-03-11 17:51 | W.PN.HOSP.TC ---
Addendum entered and electronically signed by Franklin Wade MD 03/11/24 23:45:
Attending Addendum-
I saw and evaluated the patient. I reviewed the resident�s note and agree with findings and plan as documented in the resident�s note. Sub: continues to have pleuritic cp improved when leaning forward. Full 12 point ROS reviewed and negative except
as documented Exam: Vitals reviewed in chart GEN-NAD, heart no rub RRR lungs decreased at bases abd soft LE no edema
# Pericarditis
- start colchicine
- avoid NSAIDs due to being on Xarelto
- echo 03/11
-LVEF 55-60%
-Small pericardial effusion, with no echocardiographic stigmata of
hemodynamic compromise
-Small left pleural effusion
- cardiology input appreciated
# Pericardial Effusion
- no tamponade physiology
- h/o malignant effusion
- CTM
# Pulmonary Embolism - h/o PE and RUE DVT
- continue rivaroxaban 20 daily
# NHL
- recent dx 10/08
- chemo 8 wks ago
- decreased size of mass on CT
- f/u onc as OP
# Chronic Pain with opioid dependence
- cont home dose oxy on DC
# Depression
- cont duloxetine
Code status - Full Code
Dispo DC in am
Time spent coordinating care, review of plan of care with resident, personally reviewed records in EMR, med rec, consults, notes, labs, radiology, d/w nursing � 55 mins
Original Note:
Today's Communication/Plan
-
Observe patient for next 24 hours and plan on discharging
Assessment / Plan
Assessment / Plan
Pericarditis:
-Started patient on NSAID/colchicine, as well as Protonix. 03/11
-Chest CT shows increase in size of small to moderate pericardial effusion, trace left pleural effusion 03/11
-ESR and CRP are both elevated 03/11
-AGNES, IgG reflex is pending 05/11
-Pain control with as needed Toradol and as needed IV morphine 03/11
-Echocardiogram was performed and showed normal ejection fraction 55 to 60%, small pericardial effusion, no hemodynamic compromise, small left pleural effusion 03/11
-Infectious disease saw patient and suspect that it is viral preceded by URI or malignant pericardial effusion, recommended supportive care 03/11
-Cardiology consulted
Previous history of pulmonary embolism:
-Xarelto 20 Mg daily
-PICC line associated DVT of the right upper extremity 09/2023
Non-Hodgkin's B-cell lymphoma:
-Completed chemotherapy dose 8 weeks ago R�EPOCH
-CT scan of this chest shows mediastinal mass has decreased in size
Transaminitis:
-Both AST and ALT are slightly elevated, continue to observe 03/11
Macrocytic anemia:
-Continue to observe
Anticipated Discharge: 24 - 48 hours
Subjective/Interval History
-
Date of Service: March 11, 2024
Patient given 2 days of worsening chest pain aggravated on movement like walking up the stairs. Resolved after lying down or sitting down after some time. She does not use any medication. Has a previous history of pulmonary embolism and has been
on anticoagulant Xarelto since September. Has a previous history of pericardial effusion that required pericardiocentesis around drain. Has a history of B cell non-Hodgkin's lymphoma status postchemotherapy. On admission a temperature of 100.1,
troponin was negative, BNP was negative, CT angio negative for PE.
Patient feels slight chest pain anteriorly to the sternum, no nausea vomiting dyspnea.
Objective Data
-
Labs:
Laboratory Results
03/11/24
06:12
WBC 10.3
Hgb 10.7 L
Hct 33.5 L
Plt Count 145
Sodium 138
Potassium 4.4
Chloride 103
Carbon Dioxide 31 H
BUN 13
Creatinine 0.6
Glucose 111 H
Calcium 8.8
Vital Signs:
Vital Signs
Temp Pulse Resp BP Pulse Ox
99.3 F 98 18 139/95 100
03/11/24 16:01 03/11/24 16:01 03/11/24 16:01 03/11/24 16:01 03/11/24 16:01
I&O
03/10/24 03/11/24 03/12/24
06:59 06:59 06:59
Intake Total 0 / 0
Balance 0 / 0
Review of Systems
-
History Source: Patient
Constitutional: Denies Fever, Fatigue, Chills or Weakness
Respiratory: Denies Cough
Cardiac: Reports Chest Pain; Denies Palpitations, Syncope or PND
Abdomen/GI: Denies Abdominal Pain, Nausea, Vomiting, Diarrhea or Constipated
Musculoskeletal: Denies Joint Pain
Skin: Denies Itching
Neuro: Denies Dizzy, Headache or Weakness
Physical Exam
-
Respiratory: Clear to Auscultation
Cardiac: Regular Rhythm and S1/S2
GI: Soft and Nontender
Musculoskeletal: No Clubbing, No Cyanosis and No Edema
Skin: Warm and Dry
Neuro: Awake, Alert and AO x 3
Data Reviewed
-
Medical Tests (Nuc Med, Echo etc): Image personally visualized and interpreted and Discussed with Physician
Labs: Labs Reviewed by me and Discussed with Physician
[2024-03-11] MEDS: XARELTO 20 MG PO (18:21)
[2024-03-11] MEDS: CYMBALTA DELAYED RELEASE 30 MG PO (18:21)
[2024-03-11] MEDS: COLCHICINE 0.6 MG PO (20:08)
[2024-03-11] MEDS: OCEAN, SALINE MIST 2 SPRAYS NASAL (21:14)
[2024-03-12] MEDS: DILAUDID 0.25 MG IV (00:53)
[2024-03-12] MEDS: DILAUDID 0.5 MG IV ×2 (03:40→09:10)
--- NOTE | 2024-03-12 07:31 | W.PN.HOSP.TC ---
Addendum entered and electronically signed by Franklin Wade MD 03/12/24 23:49:
Attending Addendum-
I saw and evaluated the patient. I reviewed the resident�s note and agree with findings and plan as documented in the resident�s note. Sub: states she has intense pleuritic cp but appears comfortable. Full 12 point ROS reviewed and negative except
as documented Exam: Vitals reviewed in chart GEN-NAD, heart no rub RRR lungs decreased at bases abd soft LE no edema
# Pericarditis
- cont colchicine add steroids on dc 4 week taper
- avoid NSAIDs due to being on Xarelto
- echo 03/11
-LVEF 55-60%
-Small pericardial effusion, with no echocardiographic stigmata of
hemodynamic compromise
-Small left pleural effusion
- cardiology input appreciated
- DC home
# Pericardial Effusion
- no tamponade physiology
- h/o malignant effusion
# Pulmonary Embolism - h/o PE and RUE DVT
- continue rivaroxaban 20 daily
# NHL
- recent dx 10/08
- chemo 8 wks ago
- decreased size of mass on CT
- f/u onc as OP
# Depression
- cont duloxetine
Code status - Full Code
Dispo DC
Time spent coordinating care, DC planning, review of DC plan of care with resident, transition of care, review of records, med rec/scripts sent electronically, consults, notes, d/w consultants, nursing, family, and CM�35 mins
Original Note:
Today's Communication/Plan
-
discharge patient
Assessment / Plan
Assessment / Plan
Pericarditis:
- ordered prednisone 40 mg, to be taken everyday for a week, then tapered down by 10 mg every week (2nd week 30 mg, 3rd week 20 mg, 4th week 10mg then stop). this is in addition to colchicine 0.6 mg BID everyday for 3-6 months 03/12
- Increased the dose of Dilaudid to control pain 03/12
-Started patient on colchicine, held off on NSAIDS as patient is on blood thinners, as well as started Protonix. 03/12
-Chest CT shows increase in size of small to moderate pericardial effusion, trace left pleural effusion 03/11
-ESR and CRP are both elevated 03/11
-AGNES, IgG reflex is pending 03/11
-Pain control with as needed Toradol and as needed IV morphine 03/11
-Echocardiogram was performed and showed normal ejection fraction 55 to 60%, small pericardial effusion, no hemodynamic compromise, small left pleural effusion 03/11
-Infectious disease saw patient and suspect that it is viral preceded by URI or malignant pericardial effusion, recommended supportive care 03/11
-Cardiology consulted
Previous history of pulmonary embolism:
-Xarelto 20 Mg daily
-PICC line associated DVT of the right upper extremity 09/2023
Non-Hodgkin's B-cell lymphoma:
-Completed chemotherapy dose 8 weeks ago R�EPOCH
-CT scan of this chest shows mediastinal mass has decreased in size
Transaminitis:
-Both AST and ALT are slightly elevated, continue to observe 03/11
Macrocytic anemia:
-Continue to observe
Depression:
-Continue duloxetine
Anticipated Discharge: Today
Subjective/Interval History
-
Date of Service: March 12, 2024
No overnight events
Patients pain from yesterday has increased in intensity and character. It is now a sharp pain and much more intense. Because of the pain she is taking shallow breathes. Claims she was taking oxycodone and fentanyl before when she had similar issues.
Objective Data
-
Labs:
Laboratory Results
03/12/24
07:28
WBC Pending
Hgb Pending
Hct Pending
Plt Count Pending
Sodium Pending
Potassium Pending
Chloride Pending
Carbon Dioxide Pending
BUN Pending
Creatinine Pending
Glucose Pending
Calcium Pending
Vital Signs:
Vital Signs
Temp Pulse Resp BP Pulse Ox
99.5 F 103 17 114/77 97
03/11/24 23:47 03/11/24 23:47 03/11/24 23:47 03/11/24 23:47 03/11/24 23:47
I&O
03/11/24 03/12/24 03/13/24
06:59 06:59 06:59
Intake Total 0 / 0 240 / 240
Balance 0 / 0 240 / 240
Review of Systems
-
History Source: Patient
Constitutional: Denies Fever, Weight Loss or Fatigue
Respiratory: Denies Cough
Cardiac: Denies Diaphoresis, Palpitations, Syncope or Orthopnea
Abdomen/GI: Denies Abdominal Pain, Nausea, Vomiting or Diarrhea
Musculoskeletal: Denies Joint Pain or Muscle Weakness
Physical Exam
-
Respiratory: Decreased Breath Sounds (b/l)
Cardiac: Regular Rhythm and S1/S2
GI: Normal Bowel Sounds
Skin: Warm and Dry
Neuro: Awake, Alert, Oriented and AO x 3
Data Reviewed
-
Medical Tests (Nuc Med, Echo etc): Image personally visualized and interpreted and Discussed with Physician
Labs: Labs Reviewed by me and Discussed with Physician
[2024-03-12 07:50] VITALS: BP 110/68
[2024-03-12 08:40] LABS: % Basophils 0.2 % (0-2); % Eosinophils 0.4 % (0-6); % Immature Granulocytes 0.3 % (0-0.5); % Monocytes 8.2 % (1.7-9.3); % Neutrophils 83.9 % (42.2-75.2); Absolute Eosinophils 0.1 10^3/uL (0-0.7); Absolute Lymphocytes 0.9 10^3/uL (1.2-3.4); Absolute Neutrophils 10.6 10^3/uL (1.4-6.5); Hematocrit 33.8 % (37.0-47.0); Hemoglobin 11.3 g/dL (12.0-16.0); Mean Corp Hgb Conc. 33.4 g/dL (33.0-37.0); Mean Corpuscular Hgb 32.7 pg (27.0-31.0); Mean Corpuscular Volume 97.7 fL (81.0-99.0); Mean Platelet Volume 10.4 fL (7.4-10.4); Nucleated Red Blood Cells % 0 %; Platelet Count 160 10^3/uL (130-400); Red Blood Cell Count 3.46 10^6/uL (4.20-5.40); White Blood Cell Count 12.6 10^3/uL (4.8-10.8)
[2024-03-12 08:57] LABS: Blood Urea Nitrogen 15 mg/dl (7-17); Calcium 8.9 mg/dl (8.4-10.2); Carbon Dioxide 24 mmol/L (22-30); Chloride 99 mmol/L (98-107); Estimated Creatinine Clearance 109 ml/min; Glucose 104 mg/dl (70-99); Potassium 4.5 mmol/L (3.5-5.1); Sodium 135 mmol/L (135-145); eGFR > 60.00
[2024-03-12] MEDS: PROTONIX 40 MG PO (09:10)
[2024-03-12] MEDS: CYMBALTA DELAYED RELEASE 30 MG PO (09:11)
[2024-03-12] MEDS: NEURONTIN 300 MG PO (09:11)
--- NOTE | 2024-03-12 11:49 | W.PN.ID1 ---
Date of Service
Date of Service: March 12, 2024
Today's Communication
Consider adding prednisone to colchicine.
Assessment / Plan
# Pericarditis
- Chest CT: moderate pericardial effusion
- TTE: small pericardial effusion similar to previous
-suspect viral, preceded by URI
- COVID/Influenza negative.
-Consider adding prednisone to colchicine.
# Diffuse large B cell lymphoma, mediastinal mass, hx malignant pericardial effusion, completed R-EPOCH 12/2023 ([facility])
Chief Complaint
-: Other (Chest pain)
Subjective / Review of Systems
Severe chest pain has not improved.
Vital Signs / Physical Exam
Vital Signs
Vital Signs
Temp Pulse Resp BP Pulse Ox
98.7 F 114 16 110/68 98
03/12/24 09:03 03/12/24 07:50 03/12/24 07:50 03/12/24 07:50 03/12/24 07:50
Physical Exam
Constitutional: No Acute Distress and Comfortable
Cardiovascular: S1/S2 and Other (tachycardic)
Pulmonary: Clear
Gastrointestinal: Soft
Genito-Urinary: Negative CVA Tenderness
Neurological: AO x 3
Objective Data
Lab Data
Lab Results
03/12/24 07:28
03/12/24 07:28
ESR 24 mm/hour (0-20) H 03/11/24 06:12
PT 18.5 Sec (11.4-14.6) H 03/10/24 23:56
INR 1.52 03/10/24 23:56
APTT 59.9 Sec (23.4-35.0) H 03/10/24 23:56
Estimated Creat Clear 109 ml/min 03/12/24 07:28
Lactic Acid Cancelled 03/11/24 03:59
Total Bilirubin 0.3 mg/dl (0.2-1.3) 03/10/24 23:56
AST 43 U/L (14-36) H 03/10/24 23:56
ALT 40 U/L (0-35) H 03/10/24 23:56
Alkaline Phosphatase 58 U/L (38-126) 03/10/24 23:56
C-Reactive Protein 72.90 mg/L (0.0-10.00) H 03/10/24 23:56
Most recent labs reviewed.
Micro Results:
03/11/24 01:10 Blood Culture - Preliminary
Blood/Venous No Growth in 24 hours- Final report to follow
03/11/24 00:01 Blood Culture - Preliminary
Blood/Venous No Growth in 24 hours- Final report to follow
03/11/24 02:44 Influenza Types A & B ([facility]) - Final
Nasal Swab Negative for Influenza A & B, NAAT
Negative results must be combined with clinical observations
and patient history.
Nucleic Acid Amplification test (NAAT)performed on the
[employer] platform.
03/11/24 CT chest: No evidence for pulmonary embolism or acute aortic pathology. Significant interval decrease in size of anterior mediastinal mass now measuring roughly 4.3 x 2.8 cm in cross-section, previously 8.3 x 5.5 cm on 10/11/2023. Interval
increase in size of now small to moderate pericardial effusion. Trace left pleural effusion.
[2024-03-12] MEDS: DILAUDID 1 MG IV (13:50)
[2024-03-12 14:03] VITALS: BP 111/73
--- NOTE | 2024-03-12 15:16 | W.DCSUMMARY ---
Addendum entered and electronically signed by Franklin Wade MD 03/12/24 23:50:
Read, reviewed, and agree. See same day progress note for additional details.
Gregor Wade MD
Original Note:
Documented by User: Codey Skinner MD, Resident 03/12/24 18:01
Discharge Summary
Discharge Data
Date of Admission: 03/11/24
Date of Discharge: 03/12/24
-
Pending Results: No
Hospital Course
Patient is a 38-year-old female, PCP is Dr. Barrios, full code. Has a past medical history of non-Hodgkin's B-cell lymphoma status postchemotherapy with R-EPOCH, pancytopenia, iron deficiency anemia, depression, pulmonary embolus, GERD, migraine,
chronic pain with opiate dependence. Admitted for chest pain for 2 days that is worsening, rated as a 4 out of 10 , radiating into her neck, associated with dyspnea, aggravated on movement and lying supine. Had tried using Tylenol and 5 mg of
oxycodone to alleviate the pain. Troponin negative, BNP negative, EKG on admission shows sinus tachycardia. Echocardiogram taken on 03/11 shows ejection fraction of 55 to 60%, small pericardial effusion with no hemodynamic compromise, which is
more prominent than the pericardial effusion seen in October 08 when she had a previous echo taken. Chest CT ruled out a pulmonary embolism and also decrease in the size of her mediastinal mass from previous chest CT. She has a previous history of
pulmonary embolism but has been taking Xarelto 20 Mg. Patient has a diagnosis of pericarditis and is started on colchicine while holding off on NSAIDs due to being on a blood thinner. Infectious disease is consulted and thinks pericarditis because
of upper respiratory infection due to viral illness or malignancy, and advised supportive care. For her pain control she is on as needed Tylenol, duloxetine, Dilaudid, morphine sulfate. From a medical standpoint, she is able to be discharged on
03/12/2024 with a short trial of oxycodone for pain control, prednisone with a tapering dose, and colchicine. Also recommended to get CBC checked up in 1 week with her primary care physician because on discharge shows a WBC of 12 (most likely
reactive).
History of pulmonary embolism�continue Xarelto
Non-Hodgkin's lymphoma�follow-up with oncology as outpatient
Depression�continue duloxetine
Discharge Plan
-
Patient Disposition: Home (Routine Discharge)
Discharge Diagnosis/Procedures: Pericarditis, pericardial effusion, previous history of pulmonary embolism, Non Hodgkin's B cell lymphoma, depression, chronic pain with opioid dependence
Condition: Good
Diet: Regular
Activity: As tolerated
Driving Restrictions: As prior to admission
Bathing Restrictions: None
Activity Restrictions/Additional Instructions:
Repeat CBC with PCP within 1 week
Referrals:
Cristo Silva, [Active] - in three to four weeks
Nikky Barrios MD [Family Provider] - in less than 1 week
Additional Discharge Medication Instructions: For pericarditis, patient is to take Prednisone 40 mg once a day for 7 days in the first week, then taper down to 30 mg after another 7 days for the second week, then 20 mg for the third week, followed
by 10 mg the 4th week ( which is the last week), then finished. Patient is also advised to take colchicine 0.6 mg BID (twice a day) every day for 3-6 months. Please follow up with PCP in one week.
Gave patient a script for Oxycodone 5 mg [id number] as needed for her pain
Prescriptions:
New
polyethylene glycol 3350 17 gram Powder In Packet
17 g PO DAILYPRN PRN (Reason: constipation) Qty: 1 0RF
pantoprazole 40 mg Tablet,Delayed Release (Dr/Ec)
40 mg PO DAILY Qty: 30 0RF
duloxetine 30 mg Capsule,Delayed Release(Dr/Ec)
30 mg PO DAILY Qty: 30 0RF
colchicine 0.6 mg Tablet
0.6 mg PO BID Qty: 180 0RF
prednisone 10 mg tablet
10 mg PO DAILY Qty: 70 0RF
Continued
Xarelto 20 mg tablet
20 mg PO QPM Qty: 30 0RF
Rx Instructions:
Take after you finish 15 BID doses (after 20 days)
therapeutic multivitamin Tablet
1 tab PO DAILY Qty: 30 0RF
gabapentin 300 mg Capsule
300 mg PO BID Qty: 30 0RF
loratadine [Claritin] 10 mg Tablet
10 mg PO DAILYPRN PRN (Reason: the day of and 3 day after injection) Qty: 30 0RF
Visbiome 112.5 billion cell Capsule
1 cap PO DAILY PRN (Reason: Gastrointestinal Issue) Qty: 30 0RF
Changed
cyclobenzaprine 10 mg tablet
5 mg PO TID PRN (Reason: Muscle spasms) Qty: 30 0RF
Discontinued
oxycodone 5 mg tablet
10 mg PO QID
oxycodone 10 mg tablet
10 mg PO Q8H PRN (Reason: Pain) 3 Days Qty: 14 0RF
Rx Instructions:
1 tab PRN every 8 hours for moderate pain
2 tabs PRN for severe pain
omeprazole 20 mg Capsule,Delayed Release(Dr/Ec)
20 mg PO DAILY
duloxetine
30 PO QPM
Discharge Orders:
Discharge Patient (As Directed); Ordered 03/12/24
Ordered By: Codey Skinner
Discharge Date and Time
Discharge Date/Time: 03/12/24 18:13
Print Language: NIGERIAN

Documented by User: Franklin Wade MD 03/12/24 23:47
Discharge Summary
Discharge Data
Date of Admission: 03/11/24
Date of Discharge: 03/12/24
Discharge Plan
-
Patient Disposition: Home (Routine Discharge)
Discharge Diagnosis/Procedures: Pericarditis, pericardial effusion, previous history of pulmonary embolism, Non Hodgkin's B cell lymphoma, depression, chronic pain with opioid dependence
Condition: Good
Diet: Regular
Activity: As tolerated
Driving Restrictions: As prior to admission
Bathing Restrictions: None
Activity Restrictions/Additional Instructions:
Repeat CBC with PCP within 1 week
Referrals:
Cristo Silva, [Active] - in three to four weeks
Nikky Barrios MD [Family Provider] - in less than 1 week
Additional Discharge Medication Instructions: For pericarditis, patient is to take Prednisone 40 mg once a day for 7 days in the first week, then taper down to 30 mg after another 7 days for the second week, then 20 mg for the third week, followed
by 10 mg the 4th week ( which is the last week), then finished. Patient is also advised to take colchicine 0.6 mg BID (twice a day) every day for 3-6 months. Please follow up with PCP in one week.
Gave patient a script for Oxycodone 5 mg [id number] as needed for her pain
Prescriptions:
New
polyethylene glycol 3350 17 gram Powder In Packet
17 g PO DAILYPRN PRN (Reason: constipation) Qty: 1 0RF
pantoprazole 40 mg Tablet,Delayed Release (Dr/Ec)
40 mg PO DAILY Qty: 30 0RF
duloxetine 30 mg Capsule,Delayed Release(Dr/Ec)
30 mg PO DAILY Qty: 30 0RF
colchicine 0.6 mg Tablet
0.6 mg PO BID Qty: 180 0RF
prednisone 10 mg tablet
10 mg PO DAILY Qty: 70 0RF
Continued
Xarelto 20 mg tablet
20 mg PO QPM Qty: 30 0RF
Rx Instructions:
Take after you finish 15 BID doses (after 20 days)
therapeutic multivitamin Tablet
1 tab PO DAILY Qty: 30 0RF
gabapentin 300 mg Capsule
300 mg PO BID Qty: 30 0RF
loratadine [Claritin] 10 mg Tablet
10 mg PO DAILYPRN PRN (Reason: the day of and 3 day after injection) Qty: 30 0RF
Visbiome 112.5 billion cell Capsule
1 cap PO DAILY PRN (Reason: Gastrointestinal Issue) Qty: 30 0RF
Changed
cyclobenzaprine 10 mg tablet
5 mg PO TID PRN (Reason: Muscle spasms) Qty: 30 0RF
Discontinued
oxycodone 5 mg tablet
10 mg PO QID
oxycodone 10 mg tablet
10 mg PO Q8H PRN (Reason: Pain) 3 Days Qty: 14 0RF
Rx Instructions:
1 tab PRN every 8 hours for moderate pain
2 tabs PRN for severe pain
omeprazole 20 mg Capsule,Delayed Release(Dr/Ec)
20 mg PO DAILY
duloxetine
30 PO QPM
Discharge Orders:
Discharge Patient (As Directed); Ordered 03/12/24
Ordered By: Codey Skinner
Discharge Date and Time
Discharge Date/Time: 03/12/24 18:13
Print Language: NIGERIAN
[2024-03-12] MEDS: XARELTO 20 MG PO (17:11)
--- NOTE | 2024-03-12 19:57 | W.PN.CARDCBS ---
Today's Communication / Plan
-
Treatment of pericarditis as discussed with primary
Outpatient cardiac follow-up to be arranged
Consider future use of rilonacept pending her response
Follow inflammatory markers and serial echocardiograms for pericardial effusion
Impression / Plan
-
Primary CARE physician: Nikky Barrios
Primary rails developer: None
Oncologist: Onel Tucker ([facility])
Impression:
Non-Hodgkin's lymphoma
Chest pain
Pericardial effusion
Pulmonary embolism 09/2023
DVT Right upper extremity 09/2023, PICC line
Sinus tachycardia
Anemia
Low-grade fevers
Previous cardiovascular studies:
Echo 10/11/2023: EF 55 to 60%, trivial pericardial effusion
Plan:
She presents with chest pain most suggestive of pericarditis with a history of malignant pericardial effusion.
-Patient appears comfortable although stating that she is in tremendous pain. Vital signs stable.
-She has a small pericardial effusion that may be minimally more apparent by echo that was apparent on her prior study. She has a small left pleural effusion.
-Reviewing CT imaging, pericardium may be thickened and Would consider cardiac MRI down the road
-ESR and CRP are both elevated
-Discussed with primary team�increase colchicine to 0.6 mg twice daily for 3 to 6 months. Prednisone taper initiated. Pain control per primary service�patient states that fentanyl and opiates worked best. Will arrange for outpatient cardiac
follow-up
History of pulmonary embolism�continue uninterrupted Xarelto.
Non-Hodgkin's B-cell lymphoma followed by [facility]. Completed R-EPOCH chemotherapy 8 weeks ago.
Will arrange for outpatient cardiac follow-up
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
Subjective
Date of Service: March 12, 2024
Seen and examined. Patient appears comfortable but complaining of significant pain. Claims oxycodone and fentanyl Provides the most relief
Objective
Labs:
03/12/24 07:28
03/12/24 07:28
Labs
Hgb 11.3 g/dL (12.0-16.0) L 03/12/24 07:28
Hct 33.8 % (37.0-47.0) L 03/12/24 07:28
Plt Count 160 10^3/uL (130-400) 03/12/24 07:28
PT 18.5 Sec (11.4-14.6) H 03/10/24 23:56
INR 1.52 03/10/24 23:56
APTT 59.9 Sec (23.4-35.0) H 03/10/24 23:56
Sodium 135 mmol/L (135-145) 03/12/24 07:28
Potassium 4.5 mmol/L (3.5-5.1) 03/12/24 07:28
BUN 15 mg/dl (7-17) 03/12/24 07:28
Creatinine 0.5 mg/dL (0.6-1.0) L 03/12/24 07:28
Glucose 104 mg/dl (70-99) H 03/12/24 07:28
Troponins
03/10/24
23:56
Troponin I < 0.012
Vital Signs and I&O:
Vital Signs
Temp Pulse Resp BP Pulse Ox
99.3 F 103 16 111/73 97
03/12/24 14:03 03/12/24 14:03 03/12/24 14:03 03/12/24 14:03 03/12/24 14:03
Vital Signs
Temp Pulse Resp BP Pulse Ox
99.3 F 103 16 111/73 97
03/12/24 14:03 03/12/24 14:03 03/12/24 14:03 03/12/24 14:03 03/12/24 14:03
Intake & Output
11/24/24 11/25/24 11/26/24 11/27/24
06:59 06:59 06:59 06:59
Intake Total 0 / 0 240 / 240
Balance 0 / 0 240 / 240
Physical Exam
Physical Exam
General: No acute distress, AAOX3
Heart: Regular, Negative S3 positive S1/S2, No murmur. No rub
Lungs: Bronchovesicular breath sounds decreased at the bases.
Abd: Positive BS, NT/ND, neg rebound/rigidity/guarding
Ext: No edema
Neuro: nonfocal
[2024-03-13 03:50] LABS: ANA, IgG Reflex to HEp-2 None Detected (None Detected)
== END 2024-03-12 18:13 | disposition home or self-care (01) | DRG 315 ==
LOC: 4 EAST ACU 02:40
PROVIDERS: Student in an Organized Health Care Education/Training Program; ADMITTING PHYSICIAN Internal Medicine; ATTENDING PHYSICIAN Family Medicine; EMERGENCY PHYSICIAN Student in an Organized Health Care Education/Training Program; FAMILY PHYSICIAN Hospitalist; OTHER PHYSICIAN Internal Medicine Cardiovascular Disease; OTHER PHYSICIAN Internal Medicine Infectious Disease
DX: I30.1 Infective pericarditis (principal); C83.32 Diffuse large B-cell lymphoma, intrathoracic lymph nodes; F11.20 Opioid dependence, uncomplicated; D84.9 Immunodeficiency, unspecified; D63.0 Anemia in neoplastic disease; J06.9 Acute upper respiratory infection, unspecified; K21.9 Gastro-esophageal reflux disease without esophagitis; G89.29 Other chronic pain; F32.A Depression, unspecified; G43.909 Migraine, unspecified, not intractable, without status migrainosus; G62.9 Polyneuropathy, unspecified; I31.39 Other pericardial effusion (noninflammatory); Z92.21 Personal history of antineoplastic chemotherapy; Z86.718 Personal history of other venous thrombosis and embolism; Z86.711 Personal history of pulmonary embolism; Z79.899 Other long term (current) drug therapy; Z79.01 Long term (current) use of anticoagulants; Z11.52 Encounter for screening for COVID-19
CPT/HCPCS: 93308; 71275; 80048; 80053; 81003; 83605; 83690; 83735; 83880; 84145; 84484; 84703; 85025; 85027; 85610; 85652; 85730; 86038; 86140; 87040; 87502; 87811; 93005; 93321; 93325; 96374; 99285; Q9967

== ENCOUNTER → 2024-05-29 09:24 | Outpatient (REF) | payer BC, SELFPAY | LOC: RCS 09:24 | PROVIDERS: ATTENDING PHYSICIAN Internal Medicine Cardiovascular Disease; FAMILY PHYSICIAN Hospitalist | DX: I31.39 Other pericardial effusion (noninflammatory) (principal) | CPT/HCPCS: 93308 ==

== ENCOUNTER → 2024-05-30 09:59 | Outpatient (REF) | payer BC, SELFPAY ==
[2024-05-30 11:21] LABS: Troponin I < 0.012 ng/ml
[2024-05-30 13:26] LABS: Erythrocyte Sed Rate 21 mm/hour (0-20)
== END ==
LOC: RAD 09:59
PROVIDERS: ATTENDING PHYSICIAN Internal Medicine Cardiovascular Disease; FAMILY PHYSICIAN Hospitalist
DX: J90 Pleural effusion, not elsewhere classified (principal); I31.39 Other pericardial effusion (noninflammatory); R07.2 Precordial pain; C85.10 Unspecified B-cell lymphoma, unspecified site
CPT/HCPCS: 36415; 71046; 84484; 85652; 86140

== ENCOUNTER → 2024-07-25 10:39 | Outpatient (REF) | payer BC, SELFPAY | LOC: RAD 10:39 | PROVIDERS: ATTENDING PHYSICIAN Internal Medicine Rheumatology; FAMILY PHYSICIAN Hospitalist | DX: E07.9 Disorder of thyroid, unspecified (principal); E53.8 Deficiency of other specified B group vitamins; E55.9 Vitamin D deficiency, unspecified; M25.50 Pain in unspecified joint; G89.29 Other chronic pain; M54.50 Low back pain, unspecified; R93.7 Abnormal findings on diagnostic imaging of other parts of musculoskeletal system | CPT/HCPCS: 72072; 72100; 73030; 73523 ==

== ENCOUNTER → 2025-02-17 13:52 | Outpatient (REF) | payer BC, SELFPAY | LOC: RCS 13:52 | PROVIDERS: ATTENDING PHYSICIAN Internal Medicine Cardiovascular Disease; FAMILY PHYSICIAN Hospitalist | DX: I30.0 Acute nonspecific idiopathic pericarditis (principal); I31.39 Other pericardial effusion (noninflammatory) | CPT/HCPCS: 93308 ==

== ENCOUNTER → 2025-04-14 11:20 | Outpatient (REF) | payer BC, SELFPAY | LOC: RAD 11:20 | PROVIDERS: ATTENDING PHYSICIAN Internal Medicine; FAMILY PHYSICIAN Hospitalist | DX: M25.531 Pain in right wrist (principal); G89.29 Other chronic pain | CPT/HCPCS: 73110 ==